=== PATIENT | male | born 1965 | race Caucasian/White ===

== ENCOUNTER 2020-08-03 12:09 | Outpatient (REF) | payer MEDICARE, MEDICAID, SELFPAY ==
[2020-08-03 14:00] LABS: Estimated Average Glucose 192 mg/dL; Hematocrit 43.3 % (42-52); Hemoglobin 15.9 g/dl (14.0-18.0); Hemoglobin A1c % 8.3 %; Mean Corpuscular HGB Conc 36.7 g/dl (31.0-36.0); Mean Corpuscular Hemoglobin 35.9 pg (27.0-33.0); Mean Corpuscular Volume 97.7 fL (80-98); Mean Platelet Volume 10.1 fL (9.4-12.4); Platelet Count 192 X10*3/uL (160-400); Red Blood Count 4.43 X10*6/uL (4.60-5.80); Red Cell Distribution Width 11.3 % (11.0-16.0); White Blood Count 5.7 X10*3/uL (4.8-10.8)
[2020-08-03 14:22] LABS: Alanine Aminotransferase 46 U/L (0-40); Albumin Level 4.3 g/dL (3.5-5.0); Alkaline Phosphatase 79 U/L (39-117); Anion Gap 16 (12-20); Aspartate Amino Transferase 71 U/L (5-37); Bilirubin Direct 0.5 mg/dL (0.0-0.5); Bilirubin Total 0.8 mg/dL (0.0-1.0); Blood Urea Nitrogen 16 mg/dL (9-16); Carbon Dioxide 29 mmol/L (22-29); Chloride 98 mmol/L (96-108); Cholesterol 203 mg/dL; Estimated Glomerular Filt Rate > 60; Glucose Fasting 271 mg/dL (60-99); Potassium 4.6 mmol/l (3.3-5.1); Sodium 138 mmol/L (135-145); Total Protein 7.8 g/dL (6.5-8.0); Triglycerides 88 mg/dL
[2020-08-03 14:27] LABS: Creatinine Urine 84.02 mg/dL; Microalbum/Creatinine Ratio Ur 80.9 ug/mg cr
[2020-08-03 14:48] LABS: Calcium 9.9 mg/dL (8.4-10.2); HDL Cholesterol 86 mg/dL; LDL Cholesterol Calculated 100 mg/dl
== END 2020-08-03 12:10 | disposition home or self-care (01) ==
LOC: HO.LAB 12:09
DX: E78.5 Hyperlipidemia, unspecified (principal); I10 Essential (primary) hypertension; E11.9 Type 2 diabetes mellitus without complications
CPT/HCPCS: 36415; 80053; 80061; 80076; 82043; 83036; 85027

== ENCOUNTER 2020-10-21 22:41 | Emergency (ER) | payer MEDICARE, MEDICAID, SELFPAY ==
[2020-10-21 22:51] VITALS: BP 167/48; PULSE 55; RESP 16; TEMP 37.2; O2SAT 99; BMI 27.4
--- NOTE | 2020-10-22 00:34 | ED_ITS ---
HPI - Extremity Problem General Chief complaint: Extremity Injury, Lower Stated complaint: foot pain Time Seen by Provider: 10/22/20 00:32 Source: patient Mode of arrival: ambulatory Limitations: no limitations History of Present Illness HPI Narrative: 55-year-old male insulin-dependent diabetes came in with complaint of nonhealing careless at the dorsum aspect of right foot at the base of the right big toe. Patient otherwise declined any known fever or chills, patient stated that he walks long distance that is why probably is not healing. Related Data Allergies Allergy/AdvReac Type Severity Reaction Status Date / Time aspirin [ASPIRIN] Allergy Unknown HIVES Verified 10/21/20 22:55 Review of Systems Review of Systems: All other systems are reviewed and are negative Constitutional: Reports as per HPI and Reports no additional constitutional complaints Eyes: Reports as per HPI and Reports no additional eye complaints Reports system reviewed and no additional complaints, except as documented Cardiovascular: Reports as per HPI and Reports no additional cardiovascular complaints Respiratory: Reports as per HPI and Reports no additional respiratory complaints Gastrointestinal: Reports as per HPI and Reports no additional gastrointestinal complaints Genitourinary: Reports no additional female genitourinary complaints Musculoskeletal: Reports no additional musculoskeletal complaints Skin/Breast: Reports system reviewed and no additional complaints, except as docu Psychiatric: Reports no additional psychiatric complaints Endocrine: Reports no additional endocrine complaints Hematologic/Lymphatic: Reports no additional hematologic/lymphatic complaints Allergic/Immunologic: Reports no additional allergic/immunologic complaints Reports system reviewed and no additional complaints, except as documented and Reports Abnormal speech present [facility] Past Medical History Medical History Diabetes HTN (hypertension) Social History Social History Smoking Status: Never smoker Use of substances other than those prescribed or required for medical reasons: No Advance Directives: No Advance Directives Information Provided: No Physical Exam Vital Signs: Vital Signs: Last Vital Signs Temp 98.9 F 10/21/20 22:51 Pulse 55 10/21/20 22:51 Resp 16 10/21/20 22:51 BP 167/48 H 10/21/20 22:51 Pulse Ox 99 10/21/20 22:51 Body Mass Index 27.4 Vital signs have been reviewed as normal and appeared to be correct. Blood pressure on the high side. Heart rate normal. Respiration rate normal. Temperature normal. Oxygen saturation normal. Appearance: Alert. Oriented X3. No acute distress. Head: Normal external exam. Normocephalic. Atraumatic. No [place] signs noted. No raccoon eyes noted Eyes: PERRLA. EOMI. Conjunctiva and sclera normal. Eyelids normal. ENT: EAC normal. TM's Normal. Pharynx normal. Uvula midline. Moist mucous me mbranes. No trismus noted. No drooling noted. No muffled voice noted. Neck: Normal inspection. Neck supple. FROM. No adenopathy. Thyroid Normal. No meningeal signs. No neck mass noted. CVS: Normal heart rate and rhythm. Heart sound normal. No murmurs noted. Pulses normal throughout. Respiratory: No respiratory distress. Painless inspiration. Breath sounds normal. No wheezes/rales/rhonchi noted. Chest nontender. No accessory muscle usage noted or decreased air movement noted. Abdomen: Soft and nontender. Bowel sounds normal in all 4 quadrants. No distention noted. No organomegaly noted. No visible injury noted. Back: No CVA tenderness. Full range of motion noted. Skin: Skin warm and dry. Normal skin color. Normal skin turgor. No rashes/lesions/lacerations noted. Right foot exam: 1 x 1 cm hard circular well-demarcated lesion on the dorsum of the base of left big toe, no redness or hotness, a PT/DP pulsation are intact, intact sensation to light touch. Neuro: Oriented X 3. No motor deficit. No sensory deficit. Reflexes normal. Course Course Course Narrative: Left foot callus. No sign of infection, neurovascular intact. Will refer to water service dispatcher. MDM - Extremity (Nontraumatic) Imaging Data Right foot x-ray: Radiologist's impression: There is no fracture or dislocation. Alignment is anatomic. Joint spaces are maintained. No osseous erosion. The soft tissues are unremarkable. Discharge Plan Discharge Clinical Impression: Callus of foot Patient Disposition: Home, Self-Care Additional Instructions: Use comfortable shoes with dry clean socks, then apply pressure for long time, celeste walk for long distances, and follow-up with a water service dispatcher as discussed. Referrals: Hunter Fregoso [Physician] - 2 days Lukasz Hernández DPM [Physician] - 2 days
--- NOTE | 2020-10-22 00:57 | XR_ITS ---
EXAMINATION: XR FOOT, RIGHT CLINICAL INFORMATION: Lesion at the dorsum of the right big toe COMPARISON: None TECHNIQUE: AP, lateral, and oblique views of the right foot. FINDINGS: There is no fracture or dislocation. Alignment is anatomic. Joint spaces are maintained. No osseous erosion. The soft tissues are unremarkable. XR/XR foot RT min 3V IMPRESSION: No acute osseous abnormality. No erosion.
== END 2020-10-22 01:55 | disposition home or self-care (01) ==
LOC: HO.ED 10-22 00:55
PROVIDERS: Emergency Provider Emergency Medicine
DX: L84 Corns and callosities (principal); M79.671 Pain in right foot
CPT/HCPCS: 73630; 99283; 99284

== ENCOUNTER 2021-03-23 11:29 | Outpatient (REF) | payer MEDICARE, MEDICAID, SELFPAY ==
[2021-03-23 12:26] LABS: MANUAL DIFF FLAG NO
[2021-03-23 12:30] LABS: Basophils Absolute Auto 0.1 X10*3/uL (0.0-0.2); Basophils Percent Auto 0.9 % (0-2); Eosinophils Absolute Auto 0.1 X10*3/uL (0.0-0.4); Eosinophils Percent Auto 0.9 % (0-4); Hematocrit 42.2 % (42-52); Hemoglobin 15.5 g/dl (14.0-18.0); Imm Gran Abs Auto 0.01 X10*3/uL (0.00-0.03); Imm Gran Pct Auto 0.2 % (0.0-0.4); Lymphocytes Absolute Auto 1.5 X10*3/uL (1.2-4.9); Lymphocytes Percent Auto 26.1 % (20-40); Mean Corpuscular HGB Conc 36.7 g/dl (31.0-36.0); Mean Corpuscular Volume 98.1 fL (80-98); Mean Platelet Volume 9.7 fL (9.4-12.4); Monocytes Absolute Auto 0.7 X10*3/uL (0.1-1.2); Monocytes Percent Auto 11.5 % (2-11); Neutrophils Absolute Auto 3.4 X10*3/uL (2.0-8.3); Neutrophils Percent Auto 60.4 % (45-73); Platelet Count 194 X10*3/uL (160-400); Red Cell Distribution Width 11.9 % (11.0-16.0); White Blood Count 5.7 X10*3/uL (4.8-10.8)
[2021-03-23 13:06] LABS: Thyroid Stimulating Hormone 0.88 uIU/mL (0.32-4.0)
[2021-03-23 13:30] LABS: Creatinine Urine 67.87 mg/dL
[2021-03-23 13:38] LABS: Alanine Aminotransferase 35 U/L (0-40); Albumin Level 4.3 g/dL (3.5-5.0); Alkaline Phosphatase 90 U/L (39-117); Anion Gap 15 (12-20); Aspartate Amino Transferase 65 U/L (5-37); Bilirubin Total 0.9 mg/dL (0.0-1.0); Blood Urea Nitrogen 15 mg/dL (9-16); Carbon Dioxide 31 mmol/L (22-29); Chloride 97 mmol/L (96-108); Cholesterol 172 mg/dL; Estimated Glomerular Filt Rate > 60; Glucose Fasting 221 mg/dL (60-99); HDL Cholesterol 69 mg/dL; LDL Cholesterol Calculated 82 mg/dl; Sodium 138 mmol/L (135-145); Total Protein 7.8 g/dL (6.5-8.0); Triglycerides 107 mg/dL
== END 2021-03-23 11:30 | disposition home or self-care (01) ==
LOC: HO.LAB 11:29
PROVIDERS: PCP Internal Medicine; Visit Provider Internal Medicine
DX: Z00.00 Encounter for general adult medical examination without abnormal findings (principal); E03.9 Hypothyroidism, unspecified; E11.9 Type 2 diabetes mellitus without complications
CPT/HCPCS: 36415; 80053; 80061; 82043; 84443; 85025

== ENCOUNTER 2021-04-01 21:44 | Emergency (ER) | payer MEDICARE, MEDICAID, SELFPAY ==
--- NOTE | ~2021-04-01 | XR_ITS ---
EXAMINATION: XR FOREARM, RIGHT CLINICAL INFORMATION: Injury. Pain. COMPARISON: None TECHNIQUE: AP and lateral views of the right forearm were obtained. FINDINGS: The bones and soft tissues are normal. No fracture. Imaged portions of the elbow and wrist are unremarkable. XR/XR forearm RT 2V IMPRESSION: Normal right forearm.
[2021-04-01 22:07] VITALS: BP 116/79; PULSE 62; RESP 18; TEMP 36.7; O2SAT 100; BMI 27.1
[2021-04-02] VITALS: BP 139/64; PULSE 56; RESP 16; O2SAT 100
--- NOTE | 2021-04-02 01:10 | ED.UPPEXIN ---
HPI - Extremity Injury (Upper) General Chief Complaint: Wound/Laceration Stated Complaint: arm pain, losing feeling in hand Time Seen by Provider: 04/02/21 00:17 Source: patient and family Mode of arrival: ambulatory Limitations: no limitations History of Present Illness HPI narrative: 55 y/o male presenting with right forearm pain after he slammed his arm into the metal handle of a door at his home a few hours ago. He had immediate pain on the dosum of his proximal forearm that is exacerbated by movement of his fingers and with palpation. He has no numbness or tingling. He has a few small abrasions on his forearm that he put band aids on. No active bleeding. He is not on anticoagulation. He has no other injuries. MD complaint: injury to: right and forearm Onset (ago): hour(s) Other Extremity Injury: right: forearm (proximal dorasal forearm) Other injuries: none Handedness: right Place: home Severity: moderate Severity scale (1-10): 8 Relieving factors: rest Exacerbating factors: movement of extremity Context: direct blow Associated symptoms: denies other symptoms Treatments prior to arrival: bandage Related Data Previous Rx's Medication Instructions Recorded atenolol 50 mg tablet 50 mg PO BID #180 tab 12/01/20 pravastatin 80 mg tablet 80 mg PO DAILY #90 tab 01/12/21 insulin syringe-needle U-100 1/2 0.5 ml MISCELLANEOUS BID #200 ea 01/13/21 mL 31 gauge x 15/64 blood sugar diagnostic #10 ea 02/28/21 insulin aspar prt-insulin aspart 30 unit SUBCUT BID #10 ml 03/29/21 100 unit/mL (70-30) subcutaneous soln Allergies Allergy/AdvReac Type Severity Reaction Status Date / Time aspirin [ASPIRIN] Allergy Unknown HIVES Verified 03/29/21 13:25 Review of Systems Review of Systems: Constitutional: No Fever, No Chills Gastrointestinal: No Nausea, No Vomiting Musculoskeletal: No joint pain, + Myalgia Skin: + Skin Lesions, No rash Neuro: No Weakness, No Numbness Psych: + Anxiety/Panic, No Depression Heme/Lymph: No Bruising, No Lymphadenopathy PMFSH Past Medical History Attestation statement: The following information was validated with the patient. Medical History Diabetes HTN (hypertension) Surgical History History of bunionectomy Family History Family History (Updated 03/29/21 @ 13:27 by Jennifer Hernandez CMA) Father No problems noted. Mother No problems noted. Social History Social History (Updated 03/29/21 @ 13:27 by Jennifer Hernandez CMA) Housing: House Alcohol intake: current Alcohol intake frequency: 3 or more drinks per day Alcohol type: beer, wine and hard liquor Patient Tobacco Use Status: Current everyday Tobacco user Cigarettes Per Day: 10 Smoked in Last 30 Days: Yes Use of substances other than those prescribed or required for medical reasons: No Advance Directives: No Advance Directives Information Provided: No service: No Current occupational status: disabled Physical Exam Vital Signs: Vital Signs: Last Vital Signs Temp 98.0 F 04/01/21 22:07 Pulse 56 04/02/21 00:00 Resp 16 04/02/21 00:00 BP 139/64 04/02/21 00:00 Pulse Ox 100 04/02/21 00:00 Body Mass Index 27.1 Appearance: Alert. Oriented X3. No acute distress. HEENT: normal inspection CVS: Normal heart rate and rhythm. Pulses normal. Respiratory: No respiratory distress. Skin: Skin warm and dry. Normal skin color. Normal skin turgor. No rashes. Extremities: dorsal aspect of right forearm with multiple small superficial abrasions, significant tenderness of proximal aspect of forearm soft tissue. no ecchymosis, no elbow tenderness, no wrist tenderness, pain with movement of all fingers. able to move all fingers but with pain. NV intact distally. Neuro: Oriented X 3. No motor deficit. No sensory deficit. Course Course Course Narrative: 55 y/o male presenting with right forearm pain after he had direct trauma from a door handle. NV intact. No gross deformity. Doubt ulna or radial fracture. XR pending to assess. Reevaluation(s) Reevaluation #1: XR is normal. His pain is most likely due to contusion of the flexor muscles of the forearm. Function is intact and no neuro deficits. No evidence of flexor tendon rupture. CLAUDIA wrap placed for compression and patient feels improved. He was counseled on diagnosis and management. He will f/u with his PCP this week. Stable for d/c. Critical Care Time Critical Care Time Critical Care Time: No Discharge Plan Discharge Clinical Impression: Contusion of forearm, right Qualifiers: Encounter type: initial encounter Qualified Code(s): S50.11XA - Contusion of right forearm, initial encounter Patient Disposition: Home, Self-Care Instructions: Contusion in Adults (ED) Additional Instructions: Your x-ray today was normal. Your pain is most likely due to a significant bruise deep inside the muscle. Recommend compression with CLAUDIA wrap for support. Elevate your arm when possible. Take Advil 600 mg every 6-8 hours as needed for pain, take with food. Rest your arm and hand. Follow up with your doctor this week. If you have continued pain follow up with Orthopedics in 1 week. Prescriptions: No Action atenolol 50 mg tablet 50 mg PO BID Qty: 180 RF: 8 pravastatin 80 mg tablet 80 mg PO DAILY Qty: 90 RF: 0 insulin syringe-needle U-100 [BD Veo Insulin Syringe UF] 1/2 mL 31 gauge x 15/64 syringe 0.5 ml miscellaneous BID Qty: 200 RF: 0 (DME) Accu-Chek Erika Plus test strp Strip See Rx Instructions .ROUTE .MEDSUPPLY Qty: 10 RF: 8 insulin asp prt-insulin aspart 100 unit/mL (70-30) solution 30 unit subcut BID Qty: 10 RF: 8 Referrals: Edvin Evans MD [Physician] - 1 week (forearm muscle injury) Discharge Date/Time: 04/02/21 01:23
== END 2021-04-02 01:23 | disposition home or self-care (01) ==
PROVIDERS: Emergency Provider Student in an Organized Health Care Education/Training Program; PCP Internal Medicine
DX: S50.11XA Contusion of right forearm, initial encounter (principal); E11.9 Type 2 diabetes mellitus without complications; I10 Essential (primary) hypertension; W22.09XA Striking against other stationary object, initial encounter; Y93.9 Activity, unspecified; Y92.009 Unspecified place in unspecified non-institutional (private) residence as the place of occurrence of the external cause; Y99.9 Unspecified external cause status; Z79.4 Long term (current) use of insulin; Z79.899 Other long term (current) drug therapy
CPT/HCPCS: 73090; 99283; 99284

== ENCOUNTER 2021-10-03 10:35 | Outpatient (REF) | payer MEDICARE, MEDICAID, SELFPAY ==
[2021-10-03 11:21] LABS: Cholesterol 185 mg/dL; HDL Cholesterol 68 mg/dL; LDL Cholesterol Calculated 98 mg/dl; Triglycerides 97 mg/dL
[2021-10-03 11:34] LABS: Estimated Average Glucose 206 mg/dL; Hemoglobin A1c % 8.8 %
== END 2021-10-03 10:36 | disposition home or self-care (01) ==
LOC: HO.LAB 10:35
PROVIDERS: Visit Provider Internal Medicine
DX: E11.9 Type 2 diabetes mellitus without complications (principal)
CPT/HCPCS: 36415; 80061; 83036

== ENCOUNTER → 2021-11-22 12:22 | Outpatient (BNVA) | payer MEDICARE, MEDICAID, SELFPAY | PROVIDERS: PCP Internal Medicine; Visit Provider Nurse Practitioner Gerontology | DX: E10.65 Type 1 diabetes mellitus with hyperglycemia (principal); E78.5 Hyperlipidemia, unspecified; I16.9 Hypertensive crisis, unspecified; I10 Essential (primary) hypertension; Z79.4 Long term (current) use of insulin | CPT/HCPCS: 82947; 99212 ==

== ENCOUNTER 2021-11-22 13:25 | Emergency (ER) | payer MEDICARE, MEDICAID, SELFPAY ==
--- NOTE | 2021-11-22 13:40 | ECG_ITS ---
Test Reason : high blood pressure Blood Pressure : / mmHG Vent. Rate : 054 BPM Atrial Rate : 054 BPM P-R Int : 124 ms QRS Dur : 088 ms QT Int : 454 ms P-R-T Axes : 061 004 067 degrees QTc Int : 430 ms Sinus bradycardia Otherwise normal ECG When compared with ECG of 07-DEC-2019 21:08, Non-specific change in ST segment in Anterior leads Referred By: Tari Street Electronically Signed By:Boris Munguia
[2021-11-22 13:42] VITALS: BP 204/95; PULSE 59; PULSE 69; RESP 18; TEMP 37.1; O2SAT 97; BMI 26.1
--- NOTE | 2021-11-22 13:44 | ED.GENADULT ---
HPI - General Adult General Chief complaint: Recheck/Abnormal Lab/Rx Stated complaint: HIGH BP 226/100 PER EMS Time Seen by Provider: 11/22/21 13:32 Source: patient Mode of arrival: ambulatory History of Present Illness HPI narrative: 56-year-old male with past medical history of diabetes, hyperlipidemia, HTN on Atenolol, sent to ED from [facility] office for asymptomatic hypertension noted to be 230/100 in the office. Patient admits to compliance with his atenolol takes 100 mg daily, denies recent change in medications. Denies headache, vision changes, CP/SOB, abdominal pain, nausea/vomiting, numbness, paresthesias, URI symptoms Onset (ago): hour(s) Related Data Home Medications Medication Instructions Recorded Confirmed diphenhydramine HCl 25 mg tablet 25 mg PO BEDTIME PRN 11/22/21 11/22/21 (Benadryl Allergy) omeprazole 20 mg capsule,delayed 20 mg PO DAILY 11/22/21 11/22/21 release Previous Rx's Medication Instructions Recorded atenolol 50 mg tablet 50 mg PO BID #180 tab 12/01/20 blood sugar diagnostic (Accu-Chek #10 ea 02/28/21 Erika Plus test strp) pravastatin 80 mg tablet 80 mg PO DAILY #90 tab 04/13/21 insulin syringe-needle U-100 1/2 0.5 ml MISCELLANEOUS BID #200 ea 04/19/21 mL 31 gauge x 15/64 (BD Veo Insulin Syringe Ultra-Fine) insulin aspar prt-insulin aspart 30 unit (0.3 mL) SUBCUT BID #10 ml 10/08/21 100 unit/mL (70-30) subcutaneous soln hydrochlorothiazide 25 mg tablet 25 mg PO DAILY #14 tab 11/22/21 Allergies Allergy/AdvReac Type Severity Reaction Status Date / Time aspirin [ASPIRIN] Allergy Unknown HIVES Verified 11/22/21 12:41 Review of Systems Review of Systems: Constitutional: No Fever, No Chills, No Fatigue, No Malaise ENT/Mouth: No Ear Pain, No Nasal Congestion, No sore throat, No Rhinorrhea, No Swallowing Difficulty Eyes: No Eye Pain, No Swelling, No Discharge, No Vision Changes Cardiovascular: No Chest Pain, No SOB, No Dyspnea on Exertion, No Edema, No Palpitations Respiratory: No Cough, No Sputum, No Dyspnea Gastrointestinal: No Nausea, No Vomiting, No Diarrhea, No Abdominal pain Genitourinary: No Dysuria, No Urinary Frequency, No Hematuria, No Flank Pain Musculoskeletal: No joint pain, No Myalgias, No Joint Swelling Skin: No Skin Lesions, No rash Neuro: No Weakness, No Numbness, No Paresthesias, No Loss of Consciousness, No Dizziness, No Headache Yes all other systems are reviewed and are negative [facility] Past Medical History Attestation statement: The following information was validated with the patient. Medical History Diabetes HTN (hypertension) Hyperlipidemia Surgical History History of bunionectomy Family History Family History Father No problems noted. Mother No problems noted. Social History Social History Housing: House Alcohol intake: current Alcohol intake frequency: 3 or more drinks per day Alcohol type: beer, wine and hard liquor Patient Tobacco Use Status: Current everyday Tobacco user Cigarettes Per Day: 10 Second Hand Smoke Exposure: No Advance Directives: No Advance Directives Information Provided: No service: No Current occupational status: disabled Cognitive needs: No Hearing needs: No Vision needs: No Physical Exam Vital Signs: Vital Signs: Last Vital Signs Temp 98.7 F 11/22/21 13:42 Pulse 54 11/22/21 15:21 Resp 16 11/22/21 15:21 BP 181/82 H 11/22/21 15:21 Pulse Ox 100 11/22/21 15:21 BMI result Body Mass Index 26.1 Const: General: cooperative, healthy appearing, no acute distress, well developed, alert and awake Orientation/consciousness: patient oriented x3 Limitations: no limitations HENMT: Head: Yes normal to inspection and Yes atraumatic Ears: hearing grossly normal bilaterally General nose exam: Normal external nose present Face and sinus: Yes normal facial exam Eyes: General: appearance normal, both eyes and all related structures EOM: EOMs intact bilaterally Neck: Neck: Yes normal visual inspection and Yes no meningeal signs Resp: Effort & Inspection: normal respiratory effort and no respiratory distress Auscultation: clear to auscultation bilaterally, no rales, no rhonchi and no wheezes Cardio: Rate: regular rate Heart sounds: S1 normal heart sound present and S2 normal heart sound present GI: Inspection: Yes normal to inspection Palpation (GI): Soft to palpation, nontender, no guarding and not rigid Skin: Rashes: no rashes Wounds: no wounds Neuro: General: patient oriented x3, tone normal, moves all extremities and no meningeal signs Gait exam (Neuro): Normal gait present Extrem: General: Yes normal to inspection Course Course Course Narrative: 1500--no leukocytosis. H&H stable. Labs otherwise unremarkable. Troponin negative. -1507--repeat BP 180/80 after 25 mg of HCTZ. -1530--repeat BP 181/82. Plan for DC home. Will initiate 25 mg of HCTZ in addition to patient's atenolol. Discussed importance of needing close follow-up with PCP and close BP monitoring. Patient verbalized understanding and feel safe for discharge home Medical Decision Making MDM Narrative Medical decision making narrative: 56-year-old male with past medical history of diabetes, hyperlipidemia, HTN on Atenolol, sent to ED from [facility] office for asymptomatic hypertension noted to be 230/100 in the office. On exam hypertensive, NAD, asymptomatic, no focal neuro deficits. Concern for asymptomatic hypertension vs hypertensive urgency. Low concern for hypertensive emergency or JUVENCIO or ICH Plan: EKG, labs, PO HCTZ, re-evaluate Medical Records Medical records reviewed: Yes I reviewed the patient's medical records. Lab Data Lab results reviewed: Yes I reviewed the patient's lab results. Result diagrams: 11/22/21 14:28 11/22/21 14:28 Labs: Lab Results 11/22/21 11/22/21 11/22/21 Range/Units 14:28 14:28 14:28 WBC 6.6 (4.8-10.8) X10*3/uL RBC 4.14 L (4.60-5.80) X10*6/uL Hgb 14.9 (14.0-18.0) g/dl Hct 40.0 L (42.0-52.0) % MCV 96.6 (80.0-98.0) fL MCH 36.0 H (27.0-33.0) pg MCHC 37.3 H (31.0-36.0) g/dl RDW 11.9 (11.0-16.0) % Plt Count 187 (160-400) X10*3/uL MPV 9.3 L (9.4-12.4) fL Immature Gran % (Auto) 0.2 (0.0-0.4) % Neut % (Auto) 69.1 (45-73) % Lymph % (Auto) 19.0 L (20-40) % [place] % (Auto) 10.0 (2-11) % Eos % (Auto) 0.8 (0-4) % Baso % (Auto) 0.9 (0-2) % Lymph # (Auto) 1.3 (1.2-4.9) X10*3/uL [place] # (Auto) 0.7 (0.1-1.2) X10*3/uL Eos # (Auto) 0.1 (0.0-0.4) X10*3/uL Baso # (Auto) 0.1 (0.0-0.2) X10*3/uL Abs Immat Gran (auto) 0.01 (0.00-0.03) X10*3/uL Absolute Neuts (auto) 4.5 (2.0-8.3) x10*3/uL Absolute Nucleated RBC 0.000 (0.0-0.012) X10*3/uL Nucleated RBC % (auto) 0.0 (0.0-0.2) /100WBC Sodium 138 (135-145) mmol/L Potassium 4.3 (3.3-5.1) mmol/L Chloride 99 (96-108) mmol/L Carbon Dioxide 25 (22-29) mmol/L Anion Gap 18 (12-20) BUN 11 (9-16) mg/dL Creatinine 0.92 (0.5-1.4) mg/dL Estim Creat Clear Calc 78.9 Estimated GFR > 60 Random Glucose 77 (60-115) mg/dL Calcium 10.2 (8.4-10.2) mg/dL Troponin I High Sens 4.9 (<3.5-35.0) ng/L Discharge Plan Discharge Clinical Impression: HTN (hypertension) Patient Disposition: Home, Self-Care Instructions: Hypertension (ED) Additional Instructions: Your blood pressure is elevated today in the emergency department. Continue taking prescribed atenolol. In addition start taking 25 mg of hydrochlorothiazide YOU NEED TO MONITOR YOUR BLOOD PRESSURE CLOSELY. TAKE DAILY FOR THE NEXT 3 DAYS MINIMUM. if you develop lightheadedness/dizziness, weakness, pass out return to the ED immediately CALL YOUR PCP FOR FOLLOW-UP your Blood work was reassuring. if you develops headache, chest pain, shortness of breath, numbness/tingling or weakness please return to the ED immediately Prescriptions: New hydrochlorothiazide 25 mg tablet 25 mg PO DAILY Qty: 14 0RF No Action atenolol 50 mg tablet 50 mg PO BID Qty: 180 8RF (DME) Accu-Chek Erika Plus test strp Strip See Rx Instructions .ROUTE .MEDSUPPLY Qty: 10 8RF Rx Instructions: To check blood sugars twice a day pravastatin 80 mg tablet 80 mg PO DAILY Qty: 90 8RF insulin syringe-needle U-100 [BD Veo Insulin Syringe UF] 1/2 mL 31 gauge x 15/64 syringe 0.5 ml miscellaneous BID Qty: 200 8RF insulin asp prt-insulin aspart 100 unit/mL (70-30) solution 30 unit subcut BID Qty: 10 8RF diphenhydramine HCl [Benadryl Allergy] 25 mg tablet 25 mg PO BEDTIME PRN0RF omeprazole 20 mg capsule,delayed release(DR/EC) 20 mg PO DAILY 0RF Referrals: Edgardo Mcleod MD [Primary Care Provider] - 2 days
[2021-11-22 14:32] LABS: MANUAL DIFF FLAG NO
[2021-11-22] MEDS: hydroCHLOROthiazide 25 MG TABLET PO (14:32)
[2021-11-22 14:35] LABS: Basophils Absolute Auto 0.1 X10*3/uL (0.0-0.2); Basophils Percent Auto 0.9 % (0-2); Eosinophils Absolute Auto 0.1 X10*3/uL (0.0-0.4); Eosinophils Percent Auto 0.8 % (0-4); Hemoglobin 14.9 g/dl (14.0-18.0); Imm Gran Abs Auto 0.01 X10*3/uL (0.00-0.03); Imm Gran Pct Auto 0.2 % (0.0-0.4); Lymphocytes Absolute Auto 1.3 X10*3/uL (1.2-4.9); Mean Corpuscular HGB Conc 37.3 g/dl (31.0-36.0); Mean Corpuscular Volume 96.6 fL (80.0-98.0); Mean Platelet Volume 9.3 fL (9.4-12.4); Monocytes Absolute Auto 0.7 X10*3/uL (0.1-1.2); Neutrophils Absolute Auto 4.5 x10*3/uL (2.0-8.3); Neutrophils Percent Auto 69.1 % (45-73); Platelet Count 187 X10*3/uL (160-400); Red Blood Count 4.14 X10*6/uL (4.60-5.80); Red Cell Distribution Width 11.9 % (11.0-16.0); White Blood Count 6.6 X10*3/uL (4.8-10.8)
[2021-11-22 14:49] LABS: Anion Gap 18 (12-20); Blood Urea Nitrogen 11 mg/dL (9-16); Calcium 10.2 mg/dL (8.4-10.2); Carbon Dioxide 25 mmol/L (22-29); Chloride 99 mmol/L (96-108); Creatinine Clr Calc Pharmacy 78.9; Estimated Glomerular Filt Rate > 60; Glucose Random 77 mg/dL (60-115); Potassium 4.3 mmol/L (3.3-5.1); Sodium 138 mmol/L (135-145)
[2021-11-22 14:58] LABS: Troponin-I High Sensitivity 4.9 ng/L (<3.5-35.0)
[2021-11-22 15:21] VITALS: BP 181/82; PULSE 54; RESP 16; O2SAT 100
== END 2021-11-22 15:54 | disposition home or self-care (01) ==
PROVIDERS: Physician Assistant; Emergency Provider Emergency Medicine Emergency Medical Services; PCP Internal Medicine
DX: I10 Essential (primary) hypertension (principal); E11.9 Type 2 diabetes mellitus without complications; E78.5 Hyperlipidemia, unspecified; F17.210 Nicotine dependence, cigarettes, uncomplicated; Z79.4 Long term (current) use of insulin; Z79.899 Other long term (current) drug therapy; Z71.6 Tobacco abuse counseling
CPT/HCPCS: 36415; 80048; 84484; 85025; 93005; 99283; 99284

== ENCOUNTER 2021-12-10 21:15 | Emergency (ER) | payer MEDICARE, MEDICAID, SELFPAY ==
--- NOTE | ~2021-12-10 | XR_ITS ---
EXAMINATION: XR FINGER, RIGHT CLINICAL INFORMATION: Numbness and pain COMPARISON: None TECHNIQUE: Three views of the right index finger. FINDINGS: The bones and soft tissues are normal. No fracture. Alignment is anatomic. Joint spaces are maintained. XR/XR finger RT min 2V IMPRESSION: Normal finger radiographs.
[2021-12-10 21:30] VITALS: BP 141/105; PULSE 56; RESP 16; TEMP 36.4; O2SAT 100; BMI 26.1
[2021-12-10 21:58] LABS: MANUAL DIFF FLAG NO
[2021-12-10 22:00] LABS: Basophils Percent Auto 0.7 % (0-2); Eosinophils Absolute Auto 0.1 X10*3/uL (0.0-0.4); Eosinophils Percent Auto 1.2 % (0-4); Hematocrit 36.7 % (42.0-52.0); Hemoglobin 13.4 g/dl (14.0-18.0); Imm Gran Abs Auto 0.01 X10*3/uL (0.00-0.03); Imm Gran Pct Auto 0.2 % (0.0-0.4); Lymphocytes Absolute Auto 1.9 X10*3/uL (1.2-4.9); Lymphocytes Percent Auto 32.3 % (20-40); Mean Corpuscular HGB Conc 36.5 g/dl (31.0-36.0); Mean Corpuscular Hemoglobin 35.9 pg (27.0-33.0); Mean Corpuscular Volume 98.4 fL (80.0-98.0); Mean Platelet Volume 9.8 fL (9.4-12.4); Monocytes Absolute Auto 0.6 X10*3/uL (0.1-1.2); Monocytes Percent Auto 10.3 % (2-11); Neutrophils Absolute Auto 3.3 x10*3/uL (2.0-8.3); Neutrophils Percent Auto 55.3 % (45-73); Platelet Count 184 X10*3/uL (160-400); Red Blood Count 3.73 X10*6/uL (4.60-5.80); Red Cell Distribution Width 12.1 % (11.0-16.0); White Blood Count 5.9 X10*3/uL (4.8-10.8)
[2021-12-10 22:12] LABS: Anion Gap 15 (12-20); Blood Urea Nitrogen 10 mg/dL (9-16); Calcium 9.8 mg/dL (8.4-10.2); Carbon Dioxide 24 mmol/L (22-29); Chloride 96 mmol/L (96-108); Creatinine Clr Calc Pharmacy 67.9; Estimated Glomerular Filt Rate > 60; Glucose Random 280 mg/dL (60-115); Potassium 4.3 mmol/L (3.3-5.1); Sodium 131 mmol/L (135-145)
[2021-12-11 01:20] LABS: Glucose, Whole Blood 290 mg/dL (60-115)
== END 2021-12-10 23:43 | disposition left against medical advice (07) ==
PROVIDERS: Emergency Provider Emergency Medicine; PCP Internal Medicine
DX: M79.644 Pain in right finger(s) (principal); E10.9 Type 1 diabetes mellitus without complications
CPT/HCPCS: 36415; 73140; 80048; 82947; 85025; 99283

== ENCOUNTER 2021-12-17 22:34 | Emergency (ER) | payer MEDICARE, MEDICAID, SELFPAY ==
[2021-12-17 22:47] VITALS: BP 134/87; BP 155/80; PULSE 62; PULSE 68; RESP 18; TEMP 36.6; O2SAT 100; O2SAT 98; BMI 26.1
[2021-12-17 23:06] LABS: MANUAL DIFF FLAG NO
[2021-12-17 23:07] LABS: Basophils Percent Auto 0.7 % (0-2); Eosinophils Absolute Auto 0.1 X10*3/uL (0.0-0.4); Eosinophils Percent Auto 1.9 % (0-4); Hematocrit 35.5 % (42.0-52.0); Imm Gran Abs Auto 0.01 X10*3/uL (0.00-0.03); Imm Gran Pct Auto 0.2 % (0.0-0.4); Lymphocytes Absolute Auto 1.2 X10*3/uL (1.2-4.9); Lymphocytes Percent Auto 22.6 % (20-40); Mean Corpuscular HGB Conc 36.6 g/dl (31.0-36.0); Mean Corpuscular Hemoglobin 35.5 pg (27.0-33.0); Mean Platelet Volume 9.2 fL (9.4-12.4); Monocytes Absolute Auto 0.5 X10*3/uL (0.1-1.2); Neutrophils Absolute Auto 3.5 x10*3/uL (2.0-8.3); Neutrophils Percent Auto 65.6 % (45-73); Platelet Count 144 X10*3/uL (160-400); Red Blood Count 3.66 X10*6/uL (4.60-5.80); Red Cell Distribution Width 12.2 % (11.0-16.0); White Blood Count 5.4 X10*3/uL (4.8-10.8)
[2021-12-17 23:21] LABS: Anion Gap 14 (12-20); Blood Urea Nitrogen 13 mg/dL (9-16); Calcium 9.4 mg/dL (8.4-10.2); Carbon Dioxide 27 mmol/L (22-29); Chloride 94 mmol/L (96-108); Creatinine Clr Calc Pharmacy 68.5; Estimated Glomerular Filt Rate > 60; Glucose Random 217 mg/dL (60-115); Potassium 4.2 mmol/L (3.3-5.1); Sodium 131 mmol/L (135-145)
[2021-12-17 23:22] LABS: Lactic Acid 2.9 mmol/L (0.5-2.0)
[2021-12-18 01:04] LABS: Reflex Lactate? Lactic Acid Added
== END 2021-12-18 00:54 | disposition left against medical advice (07) ==
PROVIDERS: Emergency Provider Emergency Medicine
DX: M79.644 Pain in right finger(s) (principal); L03.011 Cellulitis of right finger; E11.9 Type 2 diabetes mellitus without complications
CPT/HCPCS: 36415; 80048; 83605; 85025; 87040; 99282; 99283

== ENCOUNTER 2022-01-27 19:25 | Emergency (ER) | payer MEDICARE, MEDICAID, SELFPAY | END 2022-01-27 20:55 | disposition left against medical advice (07) | PROVIDERS: Emergency Provider Emergency Medicine; PCP Internal Medicine | DX: R68.89 Other general symptoms and signs (principal) ==

== ENCOUNTER 2022-06-28 04:43 | Emergency (ER) | payer MEDICARE, MEDICAID, SELFPAY ==
[2022-06-28 05:07] VITALS: BP 151/78; PULSE 79; RESP 18; TEMP 37.2; O2SAT 99; BMI 25.8
[2022-06-28 05:28] VITALS: BP 150/70; PULSE 75; RESP 17; TEMP 37.1; O2SAT 100
--- NOTE | 2022-06-28 05:35 | ED_ITS ---
HPI - General Adult General Chief complaint: General Medical Stated complaint: broken tooth? swollen face Time Seen by Provider: 06/28/22 05:31 History of Present Illness HPI narrative: patient is a 56-year-old male presents today with having pain and swelling to the left face. Patient claims he was chewing broke a 2 for about a week ago now have increasing swelling to the face. The swelling happen mostly tonight. Patient denies any systemic complaints. No change in voice. No nausea no vomiting. No difficulty swallowing. Patient from home. Related Data Home Medications Medication Instructions Recorded Confirmed diphenhydramine HCl 25 mg tablet 25 mg PO BEDTIME PRN 11/22/21 04/22/22 (Benadryl Allergy) omeprazole 20 mg capsule,delayed 20 mg PO DAILY 11/22/21 04/22/22 release Previous Rx's Medication Instructions Recorded hydrochlorothiazide 25 mg tablet 25 mg PO DAILY #14 tabs 11/22/21 atenolol 50 mg tablet 50 mg PO BID #180 tabs 02/12/22 blood sugar diagnostic (Accu-Chek #10 ea 03/05/22 Erika Plus test strips) insulin aspar prt-insulin aspart 30 unit (0.3 mL) subcut BID #10 mL 04/05/22 100 unit/mL (70-30) subcutaneous soln insulin syringe-needle U-100 1/2 0.5 ml miscellaneous BID #200 ea 04/19/22 mL 31 gauge x 15/64 (BD Veo Insulin Syringe Ultra-Fine) pravastatin 80 mg tablet 80 mg PO DAILY #90 tabs 04/23/22 oxycodone 5 mg tablet 5 mg PO Q8H PRN pain #7 tabs 06/28/22 penicillin V potassium 500 mg 500 mg PO TID #20 tabs 06/28/22 tablet Allergies Allergy/AdvReac Type Severity Reaction Status Date / Time aspirin [ASPIRIN] Allergy Unknown HIVES Verified 06/28/22 05:07 Review of Systems Review of Systems: No chest pain or shortness breath no nausea no vomiting Yes all other systems are reviewed and are negative [facility] Past Medical History Attestation statement: The following information was validated with the patient. Medical History Diabetes HTN (hypertension) Hyperlipidemia Surgical History History of bunionectomy Family History Family History Father No problems noted. Mother No problems noted. Social History Social History Housing: House Alcohol intake: current Alcohol intake frequency: 3 or more drinks per day Alcohol type: beer, wine and hard liquor Patient Tobacco Use Status: Current everyday Tobacco user Tobacco use type: Cigarette Cigarettes Per Day: 10 e-Cigarette/Vaping Use: Never Used Second Hand Smoke Exposure: No Advance Directives: No Advance Directives Information Provided: No service: No Current occupational status: disabled Cognitive needs: No Hearing needs: No Vision needs: No Physical Exam ED Vital Signs: Vital Signs - 24 hr 06/28/22 05:07 06/28/22 05:28 Temperature 98.9 F 98.8 F Pulse Rate 79 75 Respiratory Rate 18 17 Blood Pressure 151/78 H 150/70 H Pulse Oximetry 99 100 Oxygen Delivery Method Room Air Room Air BMI result Body Mass Index 25.8 Appearance: Alert. Oriented X3. No acute distress. Eyes: Pupils equal, round and reactive to light. ENT: Pharynx normal. examination of the left face showed multiple tooth decay the entire upper and lower molars on the left side. There is no gross fluct uance palpable. Clearly there was swelling. Posterior pharynx was normal. Neck: Normal inspection. Neck supple. No lymph nodes noted. No crepitus CVS: Normal heart rate and rhythm. Pulses normal. Normal S1 and S2 Respiratory: No respiratory distress. Breath sounds normal. No Wheezing. No rales Abdomen: Soft and nontender. No rigidity. No distention. good BS x4 Skin: Skin warm and dry. Normal skin color. Normal skin turgor. Extremities: No lower extremity edema. Neurovascular intact to all extremities. No Lacerations. No Rash Neuro: Oriented X 3. No motor deficit. No sensory deficit. Moving all extermities. No slurred speech Medical Decision Making MDM Narrative Medical decision making narrative: Significant tooth infection will start patient on antibiotics pain medication patient wore needs to follow up closely with dentist in a.m.. In stable condition. Patient's sugar elevated. He will monitor it at home. Actually give himself 25 units of 70 30 insulin in the ED. Patient is in stable condition. Told he must follow-up with a dentist on an outpatient basis immediately Discharge Plan Discharge Clinical Impression: Infected tooth Patient Disposition: Home, Self-Care Instructions: Dental Abscess (ED) Prescriptions: New penicillin V potassium 500 mg tablet 500 mg PO TID Qty: 20 0RF oxycodone 5 mg tablet 5 mg PO Q8H PRN (Reason: pain) Qty: 7 0RF Rx Instructions: Partial Fill upon patient request. No Action atenolol 50 mg tablet 50 mg PO BID Qty: 180 8RF (DME) Accu-Chek Erika Plus test strp Strip See Rx Instructions .ROUTE .MEDSUPPLY Qty: 10 8RF Rx Instructions: To check blood sugars twice a day insulin asp prt-insulin aspart 100 unit/mL (70-30) solution 30 unit subcut BID Qty: 10 8RF insulin syringe-needle U-100 [BD Veo Insulin Syringe UF] 1/2 mL 31 gauge x 15/64 syringe 0.5 ml miscellaneous BID Qty: 200 8RF pravastatin 80 mg tablet 80 mg PO DAILY Qty: 90 8RF hydrochlorothiazide 25 mg tablet 25 mg PO DAILY Qty: 14 0RF diphenhydramine HCl [Benadryl Allergy] 25 mg tablet 25 mg PO BEDTIME PRN omeprazole 20 mg capsule,delayed release(DR/EC) 20 mg PO DAILY Referrals: Physician,Unknown J [Physician] - ( Please follow-up with your dentist today)
[2022-06-28] MEDS: HYDROcodone Bit/Acetam 5/325 TABLET 1 TAB PO (05:50)
[2022-06-28] MEDS: Penicillin V Potassium 250 MG TABLET 500 MG PO (05:51)
[2022-06-28 06:15] LABS: Glucose, Whole Blood 363 mg/dL (60-115)
== END 2022-06-28 06:12 | disposition home or self-care (01) ==
PROVIDERS: Emergency Provider Emergency Medicine Emergency Medical Services; PCP Internal Medicine
DX: K04.7 Periapical abscess without sinus (principal); K02.9 Dental caries, unspecified; I10 Essential (primary) hypertension; E11.9 Type 2 diabetes mellitus without complications; E78.5 Hyperlipidemia, unspecified; Z79.4 Long term (current) use of insulin; Z79.02 Long term (current) use of antithrombotics/antiplatelets; Z79.899 Other long term (current) drug therapy
CPT/HCPCS: 82947; 99283

== ENCOUNTER → 2022-08-27 10:00 | Outpatient (BNVA) | payer OTHER, SELFPAY | PROVIDERS: PCP Internal Medicine; Visit Provider Internal Medicine Endocrinology, Diabetes & Metabolism | DX: E10.65 Type 1 diabetes mellitus with hyperglycemia (principal); I10 Essential (primary) hypertension; E78.5 Hyperlipidemia, unspecified; Z79.4 Long term (current) use of insulin | CPT/HCPCS: 82947 ==

== ENCOUNTER 2022-09-24 16:55 | Emergency (ER) | payer OTHER, SELFPAY | END 2022-09-24 19:34 | disposition left against medical advice (07) | PROVIDERS: Emergency Provider Emergency Medicine; PCP Internal Medicine | DX: H57.13 Ocular pain, bilateral (principal) ==

== ENCOUNTER 2022-12-04 20:23 | Emergency (ER) | payer OTHER, SELFPAY ==
[2022-12-04 20:30] VITALS: BP 190/90; PULSE 66; O2SAT 99
== END 2022-12-04 22:04 | disposition left against medical advice (07) ==
LOC: HO.ED 22:01
PROVIDERS: Emergency Provider Emergency Medicine
DX: M54.50 Low back pain, unspecified (principal)

== ENCOUNTER 2023-07-04 19:58 | Emergency (ER) | payer OTHER, SELFPAY ==
[2023-07-04 20:02] VITALS: BP 160/98; PULSE 64; O2SAT 97
[2023-07-04 20:47] VITALS: BP 148/75; PULSE 57; RESP 18; TEMP 36.4; O2SAT 100; BMI 30.4
--- NOTE | 2023-07-04 20:49 | ED_ITS ---
HPI - General Adult General Chief complaint: Extremity Injury, Lower Stated complaint: BiLat leg lac from fall 2 days ago. Related Data Home Medications ?Medication ?Instructions ?Recorded ?Confirmed diphenhydramine HCl 25 mg tablet 25 mg PO BEDTIME PRN 11/22/21 11/11/23 (Benadryl Allergy) omeprazole 20 mg capsule,delayed 20 mg PO DAILY 11/22/21 11/11/23 release Previous Rx's ?Medication ?Instructions ?Recorded hydrochlorothiazide 25 mg tablet 25 mg PO DAILY #14 tabs 11/22/21 erythromycin 5 mg/gram (0.5 %) eye 0.5 inch ophthalmic (eye) TID #3.5 01/23/23 ointment grams atenolol 50 mg tablet 50 mg PO BID #180 tabs 04/16/23 insulin aspar prt-insulin aspart 30 unit (0.3 mL) subcut BID #10 mL 05/01/23 100 unit/mL (70-30) subcutaneous soln pravastatin 80 mg tablet 80 mg PO DAILY #90 tabs 06/20/23 insulin syringe-needle U-100 1/2 0.5 ml miscellaneous BID #200 ea 06/22/23 mL 31 gauge x 15/64 (BD Veo Insulin Syringe Ultra-Fine) blood sugar diagnostic (Accu-Chek #10 ea 11/22/23 Erika Plus test strips) insulin lispro protamine-lispro 35 unit (0.35 mL) subcut BID #10 mL 12/16/23 100 unit/mL (75-25) subcutaneous susp (Humalog Mix 75-25(U-100)Insuln) Allergies Allergy/AdvReac Type Severity Reaction Status Date / Time aspirin [ASPIRIN] Allergy Unknown HIVES Verified 11/11/23 10:39 [facility] Past Medical History Medical History Hyperlipidemia Diabetes HTN (hypertension) Surgical History History of bunionectomy Family History Family History Father No problems noted. Mother No problems noted. Social History Social History Housing: House Alcohol intake: current Alcohol intake frequency: 3 or more drinks per day Alcohol type: other Patient Tobacco Use Status: Current everyday Tobacco user Tobacco use type: Cigarette Cigarettes Per Day: 10 e-Cigarette/Vaping Use: Never Used Second Hand Smoke Exposure: Yes service: No Current occupational status: disabled Cognitive needs: No Hearing needs: No Vision needs: No Physical Exam ED Vital Signs: BMI result Body Mass Index 30.4 Course Course Course Narrative: This is an RME: Additional HPI, ROS, PE not included below will be deferred to primary provider. 57 y o male PMH DM, HTN, HLD presenting for evaluation of abrasions to the b/l medial shins which happened 2 days ago. No thinners. States has been applying neosporin but has had increased redness, no purulent discharge, no bleeding. PCP appointment on Friday Plan [facility] Discharge Plan Discharge Clinical Impression: Eloped from emergency department Patient Disposition: Left W/O Completing Treatment Prescriptions: No Action atenolol 50 mg tablet 50 mg PO BID Qty: 180 8RF insulin asp prt-insulin aspart 100 unit/mL (70-30) solution 30 unit subcut BID Qty: 10 8RF pravastatin 80 mg tablet 80 mg PO DAILY Qty: 90 8RF insulin syringe-needle U-100 [BD Veo Insulin Syringe UF] 1/2 mL 31 gauge x 15/64 syringe 0.5 ml miscellaneous BID Qty: 200 8RF (DME) Accu-Chek Erika Plus test strp Strip See Rx Instructions .ROUTE .MEDSUPPLY Qty: 10 8RF Rx Instructions: To check blood sugars twice a day Humalog Mix 75-25(U-100)Insuln 100 unit/mL (75-25) suspension 35 unit subcut BID Qty: 10 8RF hydrochlorothiazide 25 mg tablet 25 mg PO DAILY Qty: 14 0RF erythromycin 5 mg/gram (0.5 %) ointment 0.5 inch ophthalmic (eye) TID Qty: 3.5 0RF diphenhydramine HCl [Benadryl Allergy] 25 mg tablet 25 mg PO BEDTIME PRN omeprazole 20 mg capsule,delayed release(DR/EC) 20 mg PO DAILY Discharge Date/Time: 07/04/23 23:03
== END 2023-07-04 23:03 | disposition left against medical advice (07) ==
PROVIDERS: Emergency Provider Emergency Medicine
DX: S81.812A Laceration without foreign body, left lower leg, initial encounter (principal); S81.811A Laceration without foreign body, right lower leg, initial encounter; F17.210 Nicotine dependence, cigarettes, uncomplicated; X58.XXXA Exposure to other specified factors, initial encounter; Y93.9 Activity, unspecified; Y92.9 Unspecified place or not applicable; Y99.9 Unspecified external cause status; Z71.6 Tobacco abuse counseling; Z79.899 Other long term (current) drug therapy
CPT/HCPCS: 99281

== ENCOUNTER 2023-07-08 10:44 | Outpatient (AMB) | payer OTHER, SELFPAY ==
[2023-07-08 10:46] VITALS: BP 158/84; PULSE 59; O2SAT 99; BMI 29.7
--- NOTE | 2023-07-08 10:46 | A.OFFPC_ITS ---
Vital Signs 07/08/23 10:46 Height 5 ft 4 in Weight 173 lb BMI 29.7 BP 158/84 H Blood Pressure Location Lt brachial Position Sitting Pulse 59 Pulse Source Pulse Oximeter Pulse Oximetry (%) 99 Oxygen Delivery Method Room Air Intake Visit Reasons: 4m follow up Rectifying Attendant: Not Required per policy Accompanied by: Self / Same As Patient Allergies aspirin [ASPIRIN] Allergy (Unknown, Verified 07/08/23 10:46) HIVES Medication List - Last Reconciled 07/08/23 by Edgardo Mcleod MD atenolol 50 mg PO BID blood sugar diagnostic (Accu-Chek Erika Plus test strips) To check blood sugars twice a day diphenhydramine HCl (Benadryl Allergy) 25 mg PO BEDTIME PRN erythromycin 0.5 inches ophthalmic (eye) TID hydrochlorothiazide 25 mg PO DAILY insulin asp prt-insulin aspart 100 unit/mL (70-30) 30 units (0.3 mL) subcut BID insulin lispro protamin-lispro 100 unit/mL (75-25) (Humalog Mix 75-25(U-100)Insuln) 35 units (0.35 mL) subcut BID insulin syringe-needle U-100 (BD Veo Insulin Syringe Ultra-Fine) 0.5 mL miscellaneous BID omeprazole 20 mg PO DAILY pravastatin 80 mg PO DAILY Tobacco use date assessed: 02/19/23 Dental Screening Dental Screen Date: 07/08/23 Did you have a dental visit in the last 12 months?: No Did you have a dental problem in the last 6 months where you did not have access to dental care?: No Was dental information given to patient?: Patient has dentist HPI 4m follow up HPI Details HTN [id number] and DM on insulin; stable and A1C improving [facility] Medical History Hyperlipidemia Diabetes HTN (hypertension) Surgical History History of bunionectomy Family History Father No problems noted. Mother No problems noted. Social History Housing: House Alcohol intake: current Alcohol intake frequency: 3 or more drinks per day Alcohol type: beer, wine and hard liquor Patient Tobacco Use Status: Current everyday Tobacco user Tobacco use type: Cigarette Cigarettes Per Day: 10 e-Cigarette/Vaping Use: Never Used Second Hand Smoke Exposure: Yes service: No Current occupational status: disabled Cognitive needs: No Hearing needs: No Vision needs: No Questionnaire PHQ-9 Over the last 2 weeks, how often have you been bothered by any of the following problems? 1. Little interest or pleasure in doing things: not at all 2. Feeling down, depressed, or hopeless: not at all 3. Trouble falling or staying asleep, or sleeping too much: not at all 4. Feeling tired or having little energy: not at all 5. Poor appetite or overeating: not at all 6. Feeling bad about yourself - or that you are a failure or have let yourself or your family down: not at all 7. Trouble concentrating on things, such as reading the newspaper or watching television: not at all 8. Moving or speaking so slowly that other people could have noticed. Or the opposite - being so fidgety or restless that you have been moving around a lot more than usual: not at all 9. Thoughts that you would be better off or of hurting yourself in some way: not at all Total score: 0 Depression Screening Interpretation: Negative 63679 - PHQ-9 Billing: Yes Source: Developed by Drs. Aime Kearney, Vicente Davis and colleagues, with an educational leigh ann from [employer]. Thrive Questionnaire Date Thrive assessed: 02/19/23 AUDIT C Alcohol Use Questionnaire (AUDIT-C) 1. How often do you have a drink containing alcohol?: Monthly or less Total Score: 1 Score Reviewed/Action Taken: Yes ROLO-7 AMB Questionnaire ROLO-7 Date ROLO - 7 assessed: 02/19/23 Source: Developed by Drs. Aime Kearney, Vicente Davis and colleagues, with an educational leigh ann from [employer]. Review of Systems Const Denies chills, Denies headache(s) and Denies weight loss ENT Denies headache(s) Card Denies chest pain, Denies syncope, Denies irregular heart rhythm and Denies dyspnea Resp Denies chest congestion, Denies cough and Denies dyspnea GI Denies abdominal pain, Denies change in stool character, Denies nausea and Denies vomiting Musc Denies deformity and Denies joint swelling Neuro Denies syncope and Denies headache(s) Physical exam (Primary Care) Vital Signs: Last Vital Signs Pulse 59 07/08/23 10:46 BP 158/84 H 07/08/23 10:46 Pulse Ox 99 07/08/23 10:46 Oxygen Delivery Method Room Air 07/08/23 10:46 BMI result Body Mass Index 29.7 Tobacco/Smoking Status: Tobacco use Status Tobacco use date assessed 02/19/23 07/08/23 10:47 Patient Tobacco Use Status Current everyday Tobacco 07/08/23 10:47 Tobacco use type Cigarette 07/08/23 10:47 e-Cigarette/Vaping Use Never Used 07/08/23 10:47 PHQ-9: PHQ-9 Score PHQ-9: Total score 0 07/08/23 10:59 Depression Screening Interpretation: Negative Thrive Assessment: Date of Thrive Assessment Date Thrive assessed 02/19/23 07/08/23 10:47 Const General: cooperative, comfortable, no acute distress and alert Neck Neck: Yes no lymphadenopathy Thyroid: Thyroid normal Resp Effort & Inspection: normal respiratory effort Auscultation: clear to auscultation bilaterally Percussion: percussion normal Cardio Jugular venous distension: no JVD Palpation: normal PMI Rate: regular rate Rhythm: regular rhythm Heart sounds: S1 normal heart sound present and S2 normal heart sound present GI Inspection: Yes normal to inspection Palpation (GI): No hepatosplenomegaly present Skin General skin exam: no rashes or lesions noted Extrem General: Yes no clubbing, cyanosis or edema Results AMB Hemoglobin A1c AMB Hemoglobin A1c 7.5 % Last Edit by GLENN Holguin on 07/08/23 10:59 Results Reviewed Results Reviewed: Laboratory Last Values Hgb A1c (Clinic) 7.5 % (4.0-6.0) H 07/08/23 10:48 Assessment and Plan Assessment & Plan (1) Diabetes mellitus with coincident hypertension: Code(s): E11.9 - Type 2 diabetes mellitus without complications; I10 - Essential (primary) hypertension Plan: stable; same rx (2) Hypertension: Code(s): I10 - Essential (primary) hypertension Plan: stable; same rx (3) Hyperlipidemia: Code(s): E78.5 - Hyperlipidemia, unspecified Plan: stable same rx Orders: Orders Lipid Panel Today E78.5 - Hyperlipidemia, unspecified Hemoglobin A1c Today R73.9 - Hyperglycemia, unspecified AMB Hemoglobin A1c Today E11.9 - Type 2 diabetes mellitus without complications Glucose Fasting Today R73.9 - Hyperglycemia, unspecified Coding Level of Care Code Est Pt Level 4 (99511) Diagnoses Diabetes mellitus with coincident hypertension E11.9; I10 Hypertension I10 Hyperlipidemia E78.5
== END 2023-07-08 11:10 | disposition home or self-care (01) ==
PROVIDERS: PCP Internal Medicine; Visit Provider Internal Medicine
DX: E11.9 Type 2 diabetes mellitus without complications (principal); I10 Essential (primary) hypertension; E78.5 Hyperlipidemia, unspecified
CPT/HCPCS: 83036; 99214

== ENCOUNTER 2023-10-07 20:09 | Emergency (ER) | payer OTHER, SELFPAY ==
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
[2023-10-07 20:24] VITALS: BP 92/54; BP 93/46; PULSE 50; PULSE 55; RESP 20; TEMP 36.6; O2SAT 100; BMI 27.0
--- NOTE | 2023-10-07 20:34 | MHC.EDTECH ---
PATIENT WAS BIBA ,EKG TAKEN AND WAS READ BY PROVIDER ,VITALS TAKEN ,PT WAS HOOKED UP TO OPHTHALMIC TECHNICIAN .
--- NOTE | 2023-10-07 20:39 | ECG_ITS ---
Test Reason : NNAMDI Blood Pressure : / mmHG Vent. Rate : 053 BPM Atrial Rate : 053 BPM P-R Int : 166 ms QRS Dur : 074 ms QT Int : 468 ms P-R-T Axes : 056 002 030 degrees QTc Int : 439 ms Sinus bradycardia Nonspecific ST abnormality Abnormal ECG When compared with ECG of 22-NOV-2021 14:08, No significant changes seen Referred By: Amisha Magdaleno Electronically Signed By:RAMONA CROWELL
--- NOTE | 2023-10-07 20:41 | MHC.EDTECH ---
pATIENT EKG TAKEN AT 2025 .
[2023-10-07 20:42] VITALS: BP 116/51; PULSE 53; RESP 22
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
[2023-10-07 21:18] LABS: Glucose, Whole Blood 261 mg/dL (60-115)
[2023-10-07] MEDS: iohexoL 350 MG/ML 100 ML INFUS..BTL IV (21:19)
[2023-10-07] MEDS: 0.9 % Sodium Chloride 1,000 ML 999 ML IVCONT (21:21)
[2023-10-07 21:22] VITALS: BP 142/58; PULSE 70; RESP 17; TEMP 36.6; O2SAT 97
[2023-10-07 21:23] LABS: MANUAL DIFF FLAG NO
--- NOTE | 2023-10-07 21:23 | MHC.EDTECH ---
Pt blood drawn and sent to lab .
[2023-10-07 21:25] LABS: Basophils Absolute Auto 0.1 X10*3/uL (0.0-0.2); Basophils Percent Auto 1.3 % (0-2); Eosinophils Absolute Auto 0.2 X10*3/uL (0.0-0.4); Eosinophils Percent Auto 2.9 % (0-4); Hematocrit 33.5 % (42.0-52.0); Hemoglobin 12.2 g/dl (14.0-18.0); Imm Gran Abs Auto 0.02 X10*3/uL (0.00-0.03); Imm Gran Pct Auto 0.4 % (0.0-0.4); Lymphocytes Absolute Auto 1.3 X10*3/uL (1.2-4.9); Lymphocytes Percent Auto 25.4 % (20-40); Mean Corpuscular HGB Conc 36.4 g/dl (31.0-36.0); Mean Corpuscular Hemoglobin 35.4 pg (27.0-33.0); Mean Corpuscular Volume 97.1 fL (80.0-98.0); Monocytes Absolute Auto 0.6 X10*3/uL (0.1-1.2); Monocytes Percent Auto 11.5 % (2-11); Neutrophils Absolute Auto 3.1 x10*3/uL (2.0-8.3); Neutrophils Percent Auto 58.5 % (45-73); Platelet Count 156 X10*3/uL (160-400); Red Blood Count 3.45 X10*6/uL (4.60-5.80); Red Cell Distribution Width 12.6 % (11.0-16.0); White Blood Count 5.2 X10*3/uL (4.8-10.8)
[2023-10-07] MEDS: ondansetron HCL 4 MG/2 ML VIAL IVPUSH (21:31)
[2023-10-07] MEDS: Morphine Sulfate 4 MG/ML CARTRIDGE IVPUSH ×2 (21:34→22:09)
[2023-10-07 21:39] LABS: INTERNATIONAL NORM RATIO 0.9 (0.9-1.1); Prothrombin Time 11.3 SEC (11.1-13.3)
[2023-10-07 21:40] LABS: Alanine Aminotransferase 39 U/L (0-40); Albumin Level 3.5 g/dL (3.5-5.0); Alkaline Phosphatase 69 U/L (39-117); Anion Gap 15 (12-20); Aspartate Amino Transferase 77 U/L (5-37); Bilirubin Direct 0.4 mg/dL (0.0-0.5); Bilirubin Total 0.7 mg/dL (0.0-1.0); Blood Urea Nitrogen 18 mg/dL (9-16); Calcium 8.6 mg/dL (8.4-10.2); Carbon Dioxide 21 mmol/L (22-29); Chloride 98 mmol/L (96-108); Estimated Glomerular Filt Rate 46; Glucose Random 252 mg/dL (60-115); Lipase 19 U/L (8-78); Magnesium 1.8 mg/dL (1.6-2.6); Potassium 5.1 mmol/L (3.3-5.1); Sodium 129 mmol/L (135-145); Total Protein 6.8 g/dL (6.5-8.0)
[2023-10-07 21:48] LABS: Troponin-I High Sensitivity 5.3 ng/L (<3.5-35.0)
[2023-10-07 22:09] LABS: Ethanol 210 mg/dL
--- NOTE | 2023-10-07 22:20 | PC.NURSE ---
two liters of IV NS infused. repeat chem sent to lab. pt reports 06/22 sternum pain - second dose of IV morphine given per dec. pt resting at this time. C collar removed by provider.
[2023-10-07 22:33] LABS: Anion Gap 15 (12-20); Blood Urea Nitrogen 17 mg/dL (9-16); Calcium 8.3 mg/dL (8.4-10.2); Carbon Dioxide 22 mmol/L (22-29); Chloride 100 mmol/L (96-108); Creatinine Clr Calc Pharmacy 49.9; Estimated Glomerular Filt Rate 51; Glucose Random 242 mg/dL (60-115); Potassium 4.6 mmol/L (3.3-5.1); Sodium 132 mmol/L (135-145)
--- NOTE | 2023-10-07 23:04 | MHC.EDTECH ---
Patient is refusing to change into hospital attire ,khai Echavarria aware ,Patient has some dry blood on both of his hands ,i offer to clean it ,Patient refused ,rn aware .
[2023-10-07 23:20] VITALS: BP 133/60; PULSE 70; RESP 16; TEMP 36.6; O2SAT 97
--- NOTE | 2023-10-07 23:22 | MHC.EDTECH ---
Patient refused repeated trop ,Provider aware ,vitals taken .
--- NOTE | 2023-10-07 23:34 | PC.NURSE ---
Took over care from CASSY Andrew, pt refusing to change management, pt refusing care and leaving against medical advice, Dr Larsen aware. Reviewed discharge instruction with pt , pt verbalized understanding.
--- NOTE | 2023-10-07 23:41 | PC.NURSE ---
pt a&o, educated on the importance for staying and getting treatment. pt still refusing to stay. pt discharge to awaiting room
== END 2023-10-07 23:44 | disposition left against medical advice (07) ==
PROVIDERS: Emergency Medicine; Emergency Provider Student in an Organized Health Care Education/Training Program
DX: S22.21XA Fracture of manubrium, initial encounter for closed fracture (principal); S22.32XA Fracture of one rib, left side, initial encounter for closed fracture; V43.52XA Car driver injured in collision with other type car in traffic accident, initial encounter; E87.1 Hypo-osmolality and hyponatremia; N17.9 Acute kidney failure, unspecified; R00.0 Tachycardia, unspecified; E11.9 Type 2 diabetes mellitus without complications; I10 Essential (primary) hypertension; E78.5 Hyperlipidemia, unspecified; F17.210 Nicotine dependence, cigarettes, uncomplicated; Y93.89 Activity, other specified; Y92.414 Local residential or business street as the place of occurrence of the external cause; Y99.9 Unspecified external cause status; Z53.29 Procedure and treatment not carried out because of patient's decision for other reasons; Z79.4 Long term (current) use of insulin; Z79.02 Long term (current) use of antithrombotics/antiplatelets; Z79.899 Other long term (current) drug therapy
CPT/HCPCS: 36415; 70450; 71260; 72125; 74177; 80048; 80076; 80307; 82947; 83690; 83735; 84484; 85025; 85610; 93005; 96361; 96374; 96375; 96376; 99285; J2270; J2405; Q9967

== ENCOUNTER → 2023-10-07 20:39 | Outpatient (BNV) | payer MEDICARE, MEDICAID, SELFPAY | PROVIDERS: Emergency Provider Student in an Organized Health Care Education/Training Program; Visit Provider Internal Medicine | DX: R00.1 Bradycardia, unspecified (principal) | CPT/HCPCS: 93010 ==

== ENCOUNTER 2023-10-09 18:42 | Emergency (ER) | payer OTHER, SELFPAY ==
[2023-10-09 18:55] VITALS: BP 176/78; PULSE 56; O2SAT 100
[2023-10-09 19:14] VITALS: BP 113/65; PULSE 57; RESP 18; TEMP 36.4; O2SAT 98; BMI 27.3
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
[2023-10-09 20:37] LABS: MANUAL DIFF FLAG NO
[2023-10-09 20:38] LABS: Basophils Absolute Auto 0.1 X10*3/uL (0.0-0.2); Basophils Percent Auto 0.9 % (0-2); Eosinophils Absolute Auto 0.1 X10*3/uL (0.0-0.4); Eosinophils Percent Auto 2.2 % (0-4); Hematocrit 35.3 % (42.0-52.0); Hemoglobin 12.8 g/dl (14.0-18.0); Imm Gran Abs Auto 0.01 X10*3/uL (0.00-0.03); Imm Gran Pct Auto 0.2 % (0.0-0.4); Lymphocytes Absolute Auto 1.7 X10*3/uL (1.2-4.9); Mean Corpuscular HGB Conc 36.3 g/dl (31.0-36.0); Mean Corpuscular Hemoglobin 34.5 pg (27.0-33.0); Mean Corpuscular Volume 95.1 fL (80.0-98.0); Mean Platelet Volume 9.1 fL (9.4-12.4); Monocytes Absolute Auto 0.8 X10*3/uL (0.1-1.2); Monocytes Percent Auto 11.9 % (2-11); Neutrophils Absolute Auto 3.8 x10*3/uL (2.0-8.3); Neutrophils Percent Auto 58.8 % (45-73); Platelet Count 162 X10*3/uL (160-400); Red Blood Count 3.71 X10*6/uL (4.60-5.80); Red Cell Distribution Width 12.7 % (11.0-16.0); White Blood Count 6.5 X10*3/uL (4.8-10.8)
[2023-10-09 20:51] LABS: Alanine Aminotransferase 32 U/L (0-40); Albumin Level 3.8 g/dL (3.5-5.0); Alkaline Phosphatase 76 U/L (39-117); Anion Gap 14 (12-20); Aspartate Amino Transferase 60 U/L (5-37); Bilirubin Total 0.7 mg/dL (0.0-1.0); Blood Urea Nitrogen 17 mg/dL (9-16); Calcium 9.5 mg/dL (8.4-10.2); Carbon Dioxide 25 mmol/L (22-29); Chloride 99 mmol/L (96-108); Creatinine Clr Calc Pharmacy 69.6; Estimated Glomerular Filt Rate > 60; Glucose Random 114 mg/dL (60-115); Lipase 10 U/L (8-78); Magnesium 1.8 mg/dL (1.6-2.6); Sodium 134 mmol/L (135-145); Total Protein 7.6 g/dL (6.5-8.0)
[2023-10-09 21:00] VITALS: BP 142/70; RESP 20; TEMP 36.7; O2SAT 99
--- NOTE | 2023-10-09 21:31 | ECG_ITS ---
Test Reason : RIB PAIN Blood Pressure : / mmHG Vent. Rate : 058 BPM Atrial Rate : 058 BPM P-R Int : 148 ms QRS Dur : 086 ms QT Int : 464 ms P-R-T Axes : 051 -12 040 degrees QTc Int : 455 ms Sinus bradycardia Premature ventricular complexes Otherwise normal ECG When compared with ECG of 07-OCT-2023 20:22, Premature ventricular complexes present Referred By: Bharti Chandler Electronically Signed By:RAMONA CROWELL
[2023-10-09] MEDS: oxyCODONE HCl Immed Release 5 MG TABLET 10 MG PO (22:07)
== END 2023-10-09 22:20 | disposition left against medical advice (07) ==
PROVIDERS: Physician Assistant Medical; Emergency Provider Emergency Medicine
DX: S22.20XA Unspecified fracture of sternum, initial encounter for closed fracture (principal); R07.81 Pleurodynia; F17.210 Nicotine dependence, cigarettes, uncomplicated; X58.XXXA Exposure to other specified factors, initial encounter; Y93.9 Activity, unspecified; Y92.9 Unspecified place or not applicable; Y99.9 Unspecified external cause status; Z71.6 Tobacco abuse counseling
CPT/HCPCS: 36415; 80053; 83690; 83735; 85025; 93005; 99283; 99284

== ENCOUNTER → 2023-10-09 21:31 | Outpatient (BNV) | payer OTHER, MEDICAID, SELFPAY | PROVIDERS: Emergency Provider Emergency Medicine; Visit Provider Internal Medicine | DX: R07.82 Intercostal pain (principal) | CPT/HCPCS: 93010 ==

== ENCOUNTER 2023-11-11 10:38 | Outpatient (AMB) | payer OTHER, SELFPAY ==
[2023-11-11 10:39] VITALS: BP 148/80; PULSE 59; O2SAT 99; BMI 27.1
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
== END 2023-11-11 11:07 | disposition home or self-care (01) ==
PROVIDERS: PCP Internal Medicine; Visit Provider Internal Medicine
DX: E11.9 Type 2 diabetes mellitus without complications (principal); S22.20XA Unspecified fracture of sternum, initial encounter for closed fracture
CPT/HCPCS: 83036; 99213

== ENCOUNTER 2024-04-26 12:22 | Emergency (ER) | payer OTHER, SELFPAY ==
[2024-04-26 12:26] VITALS: BP 108/55; BP 73/44; PULSE 58; RESP 16; TEMP 36.8; O2SAT 100; BMI 26.3
[2024-04-26 12:36] VITALS: BP 108/55; PULSE 58; RESP 16; TEMP 36.8; O2SAT 100
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
[2024-04-26 14:01] VITALS: BP 113/62; PULSE 52; RESP 16; O2SAT 100
[2024-04-26 14:12] VITALS: BP 127/59; BP 159/67; PULSE 55
[2024-04-26 14:13] VITALS: BP 90/50; PULSE 64
[2024-04-26 14:16] LABS: MANUAL DIFF FLAG NO
[2024-04-26 14:31] LABS: Alanine Aminotransferase 37 U/L (0-40); Albumin Level 4.2 g/dL (3.5-5.0); Alkaline Phosphatase 72 U/L (39-117); Anion Gap 19 (12-20); Aspartate Amino Transferase 83 U/L (5-37); Bilirubin Total 0.9 mg/dL (0.0-1.0); Blood Urea Nitrogen 23 mg/dL (9-16); Calcium 10.3 mg/dL (8.4-10.2); Carbon Dioxide 19 mmol/L (22-29); Chloride 96 mmol/L (96-108); Estimated Glomerular Filt Rate 28; Ethanol 38 mg/dL; Glucose Random 160 mg/dL (60-115); Magnesium 2.2 mg/dL (1.6-2.6); Sodium 130 mmol/L (135-145); Total Protein 7.9 g/dL (6.5-8.0)
[2024-04-26 14:41] LABS: Basophils Percent Auto 0.4 % (0-2); Eosinophils Percent Auto 0.3 % (0-4); Hematocrit 29.8 % (42.0-52.0); Imm Gran Abs Auto 0.03 X10*3/uL (0.00-0.03); Imm Gran Pct Auto 0.4 % (0.0-0.4); Lymphocytes Absolute Auto 1.1 X10*3/uL (1.2-4.9); Mean Platelet Volume 9.8 fL (9.4-12.4); Monocytes Absolute Auto 0.7 X10*3/uL (0.1-1.2); Monocytes Percent Auto 9.3 % (2-11); Neutrophils Absolute Auto 5.2 x10*3/uL (2.0-8.3); Neutrophils Percent Auto 74.6 % (45-73); Platelet Count 168 X10*3/uL (160-400); Red Blood Count 3.04 X10*6/uL (4.60-5.80); Red Cell Distribution Width 13.3 % (11.0-16.0); SCAN SMEAR FLAG 1
[2024-04-26 14:48] LABS: Mean Corpuscular Hemoglobin 32.8 pg (27.0-33.0)
[2024-04-26 14:49] LABS: Mean Corpuscular HGB Conc 33.6 g/dl (31.0-36.0)
[2024-04-26 17:22] VITALS: BP 90/50; PULSE 64; RESP 18; TEMP 36.3; O2SAT 96
== END 2024-04-26 17:23 | disposition left against medical advice (07) ==
PROVIDERS: Emergency Provider Internal Medicine; PCP Internal Medicine
DX: S00.91XA Abrasion of unspecified part of head, initial encounter (principal); I95.1 Orthostatic hypotension; E11.9 Type 2 diabetes mellitus without complications; M54.2 Cervicalgia; W01.0XXA Fall on same level from slipping, tripping and stumbling without subsequent striking against object, initial encounter; Y93.9 Activity, unspecified; Y92.480 Sidewalk as the place of occurrence of the external cause; Y99.8 Other external cause status; Z79.899 Other long term (current) drug therapy
CPT/HCPCS: 36415; 80053; 80307; 83735; 85025; 99283; 99284

== ENCOUNTER 2024-05-05 11:29 | Outpatient (AMB) | payer OTHER, SELFPAY ==
--- NOTE | 2024-05-05 11:32 | A.OFFPC_ITS ---
Vital Signs 05/05/24 11:33 Height 5 ft 6 in Weight 160 lb BMI 25.8 BP 140/80 H Blood Pressure Location Lt brachial Position Sitting Pulse 67 Pulse Source Pulse Oximeter Pulse Oximetry (%) 100 Oxygen Delivery Method Room Air Intake Visit Reasons: Follow Up Envelope Maker: Not Required per policy Accompanied by: Self / Same As Patient Allergies aspirin [ASPIRIN] Allergy (Unknown, Verified 04/26/24 12:32) HIVES Medication List - Last Reconciled 05/05/24 by Edgardo Mcleod MD atenolol 50 mg PO ONCE blood sugar diagnostic (Accu-Chek Erika Plus test strips) To check blood sugars twice a day diphenhydramine HCl (Benadryl Allergy) 25 mg PO BEDTIME PRN erythromycin 0.5 inches ophthalmic (eye) TID hydrochlorothiazide 25 mg PO DAILY insulin asp prt-insulin aspart 100 unit/mL (70-30) 30 units (0.3 mL) subcut BID insulin lispro protamin-lispro 100 unit/mL (75-25) (Humalog Mix 75-25(U-100)Insuln) 35 units (0.35 mL) subcut BID insulin syringe-needle U-100 (BD Veo Insulin Syringe Ultra-Fine) 0.5 mL miscellaneous BID omeprazole 20 mg PO DAILY pravastatin 80 mg PO DAILY Tobacco use date assessed: 11/11/23 Dental Screening Dental Screen Date: 11/11/23 HPI Follow Up HPI Details hypertension on rx; has decreased metoprolol to 25 mg qd; doing well [facility] Medical History Hyperlipidemia Diabetes HTN (hypertension) Surgical History History of bunionectomy Family History Father No problems noted. Mother No problems noted. Social History Housing: House Alcohol intake: current Alcohol intake frequency: 3 or more drinks per day Alcohol type: hard liquor Patient Tobacco Use Status: Current everyday Tobacco user Tobacco use type: Cigarette Cigarettes Per Day: 10 e-Cigarette/Vaping Use: Never Used Second Hand Smoke Exposure: Yes service: No Current occupational status: disabled Cognitive needs: No Hearing needs: No Vision needs: No Questionnaire Thrive Questionnaire Date Thrive assessed: 11/11/23 ROLO-7 AMB Questionnaire ROLO-7 Date ROLO - 7 assessed: 11/11/23 Source: Developed by Drs. Aime Kearney, Jeanine Hogan, Vicente Vizcarra and colleagues, with an educational leigh ann from [employer]. Review of Systems Const Denies chills, Denies headache(s) and Denies weight loss ENT Denies headache(s) Card Denies chest pain, Denies syncope, Denies irregular heart rhythm and Denies dyspnea Resp Denies chest congestion, Denies cough and Denies dyspnea GI Denies abdominal pain, Denies change in stool character, Denies nausea and Denies vomiting Musc Denies deformity and Denies joint swelling Neuro Denies syncope and Denies headache(s) Physical exam (Primary Care) Vital Signs: Last Vital Signs Pulse 67 05/05/24 11:33 BP 140/80 H 05/05/24 11:33 Pulse Ox 100 05/05/24 11:33 Oxygen Delivery Method Room Air 05/05/24 11:33 BMI result Body Mass Index 25.8 Tobacco/Smoking Status: Tobacco use Status Tobacco use date assessed 11/11/23 05/05/24 11:33 Patient Tobacco Use Status Current everyday Tobacco 05/05/24 11:33 Tobacco use type Cigarette 05/05/24 11:33 e-Cigarette/Vaping Use Never Used 05/05/24 11:33 Thrive Assessment: Date of Thrive Assessment Date Thrive assessed 11/11/23 05/05/24 11:33 Const General: cooperative, comfortable, no acute distress and alert Neck Neck: Yes no lymphadenopathy Thyroid: Thyroid normal Resp Effort & Inspection: normal respiratory effort Auscultation: clear to auscultation bilaterally Percussion: percussion normal Cardio Jugular venous distension: no JVD Palpation: normal PMI Rate: regular rate Rhythm: regular rhythm Heart sounds: S1 normal heart sound present and S2 normal heart sound present GI Inspection: Yes normal to inspection Palpation (GI): No hepatosplenomegaly present Skin General skin exam: no rashes or lesions noted Extrem General: Yes no clubbing, cyanosis or edema Results AMB Hemoglobin A1c AMB Hemoglobin A1c 7.9 % Last Edit by GLENN Holguin on 05/05/24 11:45 Results Reviewed Results Reviewed: Laboratory Last Values Hgb A1c (Clinic) 7.9 % (4.0-6.0) H 05/05/24 11:33 Assessment and Plan Assessment & Plan (1) Hypertension: Code(s): I10 - Essential (primary) hypertension Plan: stable; same rx Orders: Orders AMB Hemoglobin A1c Today E11.9 - Type 2 diabetes mellitus without complications, I10 - Essential (primary) hypertension Medications: Changed From atenolol 50 mg PO BID 180 tabs 8RF To atenolol 50 mg PO ONCE Coding Level of Care Code Est Pt Level 3 (23940) Diagnoses Hypertension I10
[2024-05-05 11:33] VITALS: BP 140/80; PULSE 67; O2SAT 100; BMI 25.8
== END 2024-05-05 11:56 | disposition home or self-care (01) ==
PROVIDERS: Visit Provider Internal Medicine
DX: E11.9 Type 2 diabetes mellitus without complications (principal); I10 Essential (primary) hypertension
CPT/HCPCS: 83036; 99213

== ENCOUNTER 2024-06-07 11:41 | Outpatient (AMB) | payer OTHER, SELFPAY ==
[2024-06-07 11:43] VITALS: BP 148/82; PULSE 60; O2SAT 96; BMI 26.1
--- NOTE | 2024-06-07 11:43 | A.OFFPC_ITS ---
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 Accompanied by: Self / Same As Patient Allergies aspirin [ASPIRIN] Allergy (Unknown, Verified 06/07/24 11:43) HIVES Medication List - Last Reconciled 06/08/24 by Edgardo Mcleod MD atenolol 25 mg PO DAILY blood sugar diagnostic (Accu-Chek Erika Plus test strips) To check blood sugars twice a day diphenhydramine HCl (Benadryl Allergy) 25 mg PO BEDTIME PRN erythromycin 0.5 inches ophthalmic (eye) TID hydrochlorothiazide 25 mg PO DAILY insulin asp prt-insulin aspart 100 unit/mL (70-30) 30 units (0.3 mL) subcut BID insulin lispro protamin-lispro 100 unit/mL (75-25) (Humalog Mix 75-25(U-100)Insuln) 35 units (0.35 mL) subcut BID insulin syringe-needle U-100 (BD Veo Insulin Syringe Ultra-Fine) 0.5 mL miscellaneous BID omeprazole 20 mg PO DAILY pravastatin 80 mg PO DAILY Tobacco use date assessed: 11/11/23 Dental Screening Dental Screen Date: 11/11/23 HPI 1mth f/u HPI Details N on rx; doing well and compliant [facility] Medical History Hyperlipidemia Diabetes HTN (hypertension) Surgical History History of bunionectomy Family History Father No problems noted. Mother No problems noted. Social History Housing: House Alcohol intake: current Alcohol intake frequency: 3 or more drinks per day Alcohol type: hard liquor Patient Tobacco Use Status: Current everyday Tobacco user Tobacco use type: Cigarette Cigarettes Per Day: 10 e-Cigarette/Vaping Use: Never Used Second Hand Smoke Exposure: Yes service: No Current occupational status: disabled Cognitive needs: No Hearing needs: No Vision needs: No Questionnaire PHQ-9 Over the last 2 weeks, how often have you been bothered by any of the following problems? 1. Little interest or pleasure in doing things: not at all 2. Feeling down, depressed, or hopeless: not at all 3. Trouble falling or staying asleep, or sleeping too much: not at all 4. Feeling tired or having little energy: not at all 5. Poor appetite or overeating: not at all 6. Feeling bad about yourself - or that you are a failure or have let yourself or your family down: not at all 7. Trouble concentrating on things, such as reading the newspaper or watching television: not at all 8. Moving or speaking so slowly that other people could have noticed. Or the o pposite - being so fidgety or restless that you have been moving around a lot more than usual: not at all 9. Thoughts that you would be better off or of hurting yourself in some way: not at all Total score: 0 Depression Screening Interpretation: Negative Depression Screening Done: Yes 56609 - PHQ-9 Billing: Yes Source: Developed by Drs. Aime Kearney, Jeanine Hogan, Vicente Vizcarra and colleagues, with an educational leigh ann from [employer]. Thrive Questionnaire Date Thrive assessed: 11/11/23 AUDIT C Alcohol Use Questionnaire (AUDIT-C) 1. How often do you have a drink containing alcohol?: Monthly or less Total Score: 1 Score Reviewed/Action Taken: Yes ROLO-7 AMB Questionnaire ROLO-7 Date ROLO - 7 assessed: 11/11/23 Source: Developed by Drs. Aime Kearney, Jeanine Hogan, Vicente Vizcarra and colleagues, with an educational leigh ann from [employer]. Review of Systems Const Denies chills, Denies headache(s) and Denies weight loss ENT Denies headache(s) Card Denies chest pain, Denies syncope, Denies irregular heart rhythm and Denies dyspnea Resp Denies chest congestion, Denies cough and Denies dyspnea GI Denies abdominal pain, Denies change in stool character, Denies nausea and Denies vomiting Musc Denies deformity and Denies joint swelling Neuro Denies syncope and Denies headache(s) Physical exam (Primary Care) Vital Signs: Last Vital Signs Pulse 60 06/07/24 11:43 BP 148/82 H 06/07/24 11:43 Pulse Ox 96 06/07/24 11:43 Oxygen Delivery Method Room Air 06/07/24 11:43 BMI result Body Mass Index 26.1 Tobacco/Smoking Status: Tobacco use Status Tobacco use date assessed 11/11/23 06/07/24 11:46 Patient Tobacco Use Status Current everyday Tobacco 06/07/24 11:46 Tobacco use type Cigarette 06/07/24 11:46 e-Cigarette/Vaping Use Never Used 06/07/24 11:46 PHQ-9: PHQ-9 Score PHQ-9: Total score 0 06/07/24 11:46 Depression Screening Interpretation: Negative Thrive Assessment: Date of Thrive Assessment Date Thrive assessed 11/11/23 06/07/24 11:46 Const General: cooperative, comfortable, no acute distress and alert Neck Neck: Yes no lymphadenopathy Thyroid: Thyroid normal Resp Effort & Inspection: normal respiratory effort Auscultation: clear to auscultation bilaterally Percussion: percussion normal Cardio Jugular venous distension: no JVD Palpation: normal PMI Rate: regular rate Rhythm: regular rhythm Heart sounds: S1 normal heart sound present and S2 normal heart sound present GI Inspection: Yes normal to inspection Palpation (GI): No hepatosplenomegaly present Skin General skin exam: no rashes or lesions noted Extrem General: Yes no clubbing, cyanosis or edema Assessment and Plan Assessment & Plan (1) Hypertension: Code(s): I10 - Essential (primary) hypertension Plan: stable; same rx Orders: Orders Complete Blood Count Auto Diff Today Z13.0 - Encounter for screening for diseases of the blood and blood-forming organs and certain disorders involving the immune mechanism Hemoglobin A1c Today R73.9 - Hyperglycemia, unspecified Lipid Panel Today Z13.220 - Encounter for screening for lipoid disorders Thyroid Stimulating Hormone Today Z13.29 - Encounter for screening for other suspected endocrine disorder Comprehensive [place]. Panel Fast Today Z13.9 - Encounter for screening, unspecif ied Coding Level of Care Code Est Pt Level 3 (56916) Diagnoses Hypertension I10
== END 2024-06-07 12:04 | disposition home or self-care (01) ==
PROVIDERS: PCP Internal Medicine; Visit Provider Internal Medicine
DX: I10 Essential (primary) hypertension (principal)
CPT/HCPCS: 99213

== ENCOUNTER 2024-09-17 19:29 | Emergency (ER) | payer OTHER, SELFPAY ==
[2024-09-17 19:42] VITALS: BP 153/60; BP 168/100; PULSE 63; PULSE 65; RESP 16; TEMP 37.1; O2SAT 100; O2SAT 99; BMI 27.5
--- NOTE | 2024-09-17 21:57 | ED_ITS ---
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 patient's alcoholic previous liver enzymes were normal Related Data Home Medications ?Medication ?Instructions ?Recorded ?Confirmed diphenhydramine HCl 25 mg tablet 25 mg PO BEDTIME PRN 11/22/21 06/08/24 (Benadryl Allergy) omeprazole 20 mg capsule,delayed 20 mg PO DAILY 11/22/21 06/08/24 release atenolol 25 mg tablet 25 mg PO DAILY 06/07/24 06/08/24 Previous Rx's ?Medication ?Instructions ?Recorded hydrochlorothiazide 25 mg tablet 25 mg PO DAILY #14 tabs 11/22/21 erythromycin 5 mg/gram (0.5 %) eye 0.5 inch ophthalmic (eye) TID #3.5 01/23/23 ointment grams insulin aspar prt-insulin aspart 30 unit (0.3 mL) subcut BID #10 mL 05/01/23 100 unit/mL (70-30) subcutaneous soln blood sugar diagnostic (Accu-Chek #10 ea 11/22/23 Erika Plus test strips) insulin lispro protamine-lispro 35 unit (0.35 mL) subcut BID #10 mL 05/05/24 100 unit/mL (75-25) subcutaneous susp (Humalog Mix 75-25(U-100)Insuln) pravastatin 80 mg tablet 80 mg PO DAILY #90 tabs 07/07/24 insulin syringe-needle U-100 1/2 0.5 ml miscellaneous BID #200 ea 07/08/24 mL 31 gauge x 15/64 (BD Veo Insulin Syringe Ultra-Fine) doxycycline hyclate 100 mg tablet 100 mg PO BID #20 tabs 09/17/24 hydroxyzine HCl 25 mg tablet 25 mg PO TID PRN itching #30 tabs 09/17/24 Allergies Allergy/AdvReac Type Severity Reaction Status Date / Time aspirin [ASPIRIN] Allergy Unknown HIVES Verified 09/17/24 19:45 Review of Systems Review of Systems: Yes all other systems are reviewed and are negative PMFSH Past Medical History Medical History Hyperlipidemia Diabetes HTN (hypertension) Surgical History History of bunionectomy Family History Family History Father No problems noted. Mother No problems noted. Social History Social History Housing: House Alcohol intake: current Alcohol intake frequency: 3 or more drinks per day Alcohol type: hard liquor Patient Tobacco Use Status: Current everyday Tobacco user Tobacco use type: Cigarette Cigarettes Per Day: 10 e-Cigarette/Vaping Use: Never Used Second Hand Smoke Exposure: Yes Advance Directives: No Advance Directives Information Provided: No service: No Current occupational status: disabled Cognitive needs: No Hearing needs: No Vision needs: No Physical Exam ED Vital Signs: Vital Signs - 24 hr 09/17/24 19:42 09/17/24 22:27 09/17/24 22:42 Temperature 98.7 F 98.6 F 98.4 F Pulse Rate 65 59 84 Respiratory Rate 16 20 16 Blood Pressure 153/60 H 90/48 L 99/45 L Pulse Oximetry 100 99 96 Oxygen Delivery Method Room Air Room Air Room Air BMI result Body Mass Index 27.5 Appearance: Alert. Oriented X3. No acute distress. Eyes: PERRLA, No Nystagmus ENT: Pharynx normal. Oral Mucosa moist Neck: Normal inspection. Neck supple. CVS: Normal heart rate and rhythm. Pulses normal. Respiratory: No respiratory distress. Equal air entry bilateral, no wheezing/rales/rhonchi Abdomen: Soft and nontender. Bowel sounds are present, no mass palpable, no CVA tenderness Skin: Skin warm and dry. Rash over the both extremities with the with skin breakdown and infection no rash in the back for the checked Extremities: No lower extremity edema. No calf tenderness Neuro: Oriented X 3. No motor deficit. Medications Administered Discontinued Medications Generic Name Dose Route Start Last Admin Trade Name Freq PRN Reason Stop Dose Admin Doxycycline Monohydrate 100 mg 09/17/24 22:41 09/17/24 22:47 Doxycycline Monohydrate 100 Mg Capsule PO 09/17/24 22:42 100 mg ONCE ONE Administration Hydroxyzine HCl 25 mg 09/17/24 22:41 09/17/24 22:47 Hydroxyzine Hcl 25 Mg Tablet PO 09/17/24 22:42 25 mg ONCE ONE Administration Medical Decision Making Medical Decision Making [facility] Narrative: Patient is educated rash mostly on the area where he can reach starts scratching in from ulcerated area which are infected will prescribe doxycycline and Atarax Discharge Plan Discharge Clinical Impression: Chronic urticaria Patient Disposition: Home, Self-Care Instructions: Urticaria (ED) Additional Instructions: Take antibiotic as prescribed for infected wounds Atarax for itching Stop drinking alcohol Prescriptions: New hydroxyzine HCl 25 mg tablet 25 mg PO TID PRN (Reason: itching) Qty: 30 0RF doxycycline hyclate 100 mg tablet 100 mg PO BID Qty: 20 0RF No Action insulin asp prt-insulin aspart 100 unit/mL (70-30) solution 30 unit subcut BID Qty: 10 8RF (DME) Accu-Chek Erika Plus test strp Strip See Rx Instructions .ROUTE .MEDSUPPLY Qty: 10 8RF Rx Instructions: To check blood sugars twice a day Humalog Mix 75-25(U-100)Insuln 100 unit/mL (75-25) suspension 35 unit subcut BID Qty: 10 8RF pravastatin 80 mg tablet 80 mg PO DAILY Qty: 90 8RF insulin syringe-needle U-100 [BD Veo Insulin Syringe UF] 1/2 mL 31 gauge x 15/64 syringe 0.5 ml miscellaneous BID Qty: 200 8RF hydrochlorothiazide 25 mg tablet 25 mg PO DAILY Qty: 14 0RF erythromycin 5 mg/gram (0.5 %) ointment 0.5 inch ophthalmic (eye) TID Qty: 3.5 0RF atenolol 25 mg tablet 25 mg PO DAILY diphenhydramine HCl [Benadryl Allergy] 25 mg tablet 25 mg PO BEDTIME PRN omeprazole 20 mg capsule,delayed release(DR/EC) 20 mg PO DAILY Print Language: Samoan
[2024-09-17 22:27] VITALS: BP 90/48; PULSE 59; RESP 20; TEMP 37; O2SAT 99
[2024-09-17 22:42] VITALS: BP 99/45; PULSE 84; RESP 16; TEMP 36.9; O2SAT 96
[2024-09-17] MEDS: hydrOXYzine HCL 25 MG TABLET PO (22:47)
[2024-09-17] MEDS: Doxycycline Monohydrate 100 MG CAPSULE PO (22:47)
[2024-09-17 22:53] VITALS: BP 99/45; PULSE 84; RESP 16; TEMP 36.9; O2SAT 96
== END 2024-09-17 22:54 | disposition home or self-care (01) ==
PROVIDERS: Emergency Provider Internal Medicine
DX: L50.8 Other urticaria (principal); E11.9 Type 2 diabetes mellitus without complications; I10 Essential (primary) hypertension; E78.5 Hyperlipidemia, unspecified; F17.210 Nicotine dependence, cigarettes, uncomplicated; Z79.4 Long term (current) use of insulin; Z79.899 Other long term (current) drug therapy; Z79.02 Long term (current) use of antithrombotics/antiplatelets
CPT/HCPCS: 99283; 99284

== ENCOUNTER 2024-11-05 15:29 | Emergency (ER) | payer OTHER, SELFPAY ==
--- NOTE | ~2024-11-05 | XR_ITS ---
CLINICAL HISTORY: atraumatic great toe bruising 3 view left foot Comparison: None Findings: No acute fracture. No dislocation. Pes planus is present. No acute fracture. No dislocation. No evidence of osteomyelitis. No significant arthritic change or erosions. No ankle effusion. No radiopaque foreign body. There are vascular calcifications. IMPRESSION: No acute bony abnormality. This document has been electronically signed by: Elis Quezada MD on 11/05/2024 17:10:19
[2024-11-05 16:18] VITALS: BP 123/67; PULSE 60; RESP 18; TEMP 36.8; O2SAT 100; BMI 26.0
--- NOTE | 2024-11-05 16:21 | ED.GENADULT ---
HPI - General Adult General Chief complaint: Extremity Problem Stated complaint: toe turned purple, diabetic Time Seen by Provider: 11/05/24 21:58 Source: patient, RN notes reviewed and old records reviewed Mode of arrival: ambulatory Limitations: no limitations History of Present Illness ED Provider: Cari HPI narrative: 59-year-old male past medical history significant for insulin-dependent diabetes, hypertension presents for evaluation of discoloration to his left great toe. Patient denies any specific injury, he would not drop anything on his toe. He did not stub his toe or step on anything. He reports that about 3 weeks ago he 1st noticed discoloration to the toenail at the base of the toenail. She will be thereafter he developed some bleeding just behind the toenail which resolved on its own. The patient states that today he has soak the toe in warm water to try and keep it clean He presents to the ER today as he noticed discoloration to the tip of the toe itself as opposed to the toenail. He has no pain to the area, no drainage. Denies any history of neuropathy and reports that he has gross sensation intact to the great toe Related Data Home Medications ?Medication ?Instructions ?Recorded ?Confirmed diphenhydramine HCl 25 mg tablet 25 mg PO BEDTIME PRN 11/22/21 06/08/24 (Benadryl Allergy) omeprazole 20 mg capsule,delayed 20 mg PO DAILY 11/22/21 06/08/24 release atenolol 25 mg tablet 25 mg PO DAILY 06/07/24 06/08/24 Previous Rx's ?Medication ?Instructions ?Recorded hydrochlorothiazide 25 mg tablet 25 mg PO DAILY #14 tabs 11/22/21 erythromycin 5 mg/gram (0.5 %) eye 0.5 inch ophthalmic (eye) TID #3.5 01/23/23 ointment grams insulin aspar prt-insulin aspart 30 unit (0.3 mL) subcut BID #10 mL 05/01/23 100 unit/mL (70-30) subcutaneous soln blood sugar diagnostic (Accu-Chek #10 ea 11/22/23 Erika Plus test strips) insulin lispro protamine-lispro 35 unit (0.35 mL) subcut BID #10 mL 05/05/24 100 unit/mL (75-25) subcutaneous susp (Humalog Mix 75-25(U-100)Insuln) pravastatin 80 mg tablet 80 mg PO DAILY #90 tabs 07/07/24 insulin syringe-needle U-100 1/2 0.5 ml miscellaneous BID #200 ea 07/08/24 mL 31 gauge x 15/64 (BD Veo Insulin Syringe Ultra-Fine) doxycycline hyclate 100 mg tablet 100 mg PO BID #20 tabs 09/17/24 hydroxyzine HCl 25 mg tablet 25 mg PO TID PRN itching #30 tabs 09/17/24 Allergies Allergy/AdvReac Type Severity Reaction Status Date / Time aspirin [ASPIRIN] Allergy Unknown HIVES Verified 11/05/24 16:24 Review of Systems Constitutional: Constitutional: Denies body ache(s), Denies chills, Denies fever(s) and Denies headache(s) Eyes: Eyes: Denies blurry vision ENT: Denies headache(s) Cardiovascular: Cardiovascular: Denies chest pain Musculoskeletal: Musculoskeletal: Denies arthralgias, Denies joint swelling and Denies limited range of motion Integumentary/Breasts: Skin/Breast: Reports unusual bruising Neurologic: Denies headache(s) [facility] Past Medical History Medical History Hyperlipidemia Diabetes HTN (hypertension) Surgical History History of bunionectomy Family History Family History Father No problems noted. Mother No problems noted. Social History Social History Housing: House Alcohol intake: current Alcohol intake frequency: 3 or more drinks per day Alcohol type: hard liquor Patient Tobacco Use Status: Current everyday Tobacco user Tobacco use type: Cigarette Cigarettes Per Day: 10 e-Cigarette/Vaping Use: Never Used Second Hand Smoke Exposure: Yes Advance Directives: No Advance Directives Information Provided: Yes Do you have a plan to hurt others: No Plan service: No Current occupational status: disabled Cognitive needs: No Hearing needs: No Vision needs: No Physical Exam ED Vital Signs: Vital Signs - 24 hr 11/05/24 16:18 11/05/24 23:26 Temperature 98.2 F 98.2 F Pulse Rate 60 60 Respiratory Rate 18 18 Blood Pressure 123/67 123/67 Pulse Oximetry 100 100 Oxygen Delivery Method Room Air Room Air BMI result Body Mass Index 26.0 Const General: healthy appearing, comfortable, no acute distress, alert and awake Nutritional Appearance: well nourished Orientation/consciousness: patient oriented x3 HENMT Head: Yes normocephalic and Yes atraumatic Eyes Eyelids: Yes eyelids normal Conjunctivae: conjunctivae normal Sclerae: sclerae normal Corneas: corneas normal Pupils: Equal, round and reactive pupils present EOM: EOMs intact bilaterally Neck Neck: Yes full ROM Resp Effort & Inspection: normal respiratory effort, able to speak in complete sentences and not labored Skin Other: Patient has mild onychomycosis to the left great toe. There is darkening of the toenail starting from the base of the toenail just distal to the nail plate extending up to about [address] the toe. There was no active bleeding obvious around the toe. There is a small 1 x 2 cm area of ecchymosis to the tip of the left great toe no wounds or edema. Gross sensation is intact and capillary refill under 2 seconds General skin exam: elasticity normal Neuro General: patient oriented x3 Cranial nerves: Yes Equal, round and reactive pupils present and Yes Bilaterally intact EOM present Cognition (Neuro): normal cognition Extrem Other: Moving all extremities well without any obvious deformities Course Course Course Narrative: This is a rapid medical exam performed by Jef Miller NP: Additional HPI, ROS, PE not included below will be deferred to primary provider. Patient is a 59-year-old male with history of DM, HTN, HLD presenting with atraumatic brusing to left great toenail 2 weeks ago. Last week he noted blood leaking from under the toenail. He then soaked it in warm water and states the toe itself is now turning purple. Plan: labs, xray Medical Decision Making Medical Decision Making MDM Narrative: 59-year-old male with past medical history as documented above presents for evaluation of discoloration to the left great toe. His exam is most consistent with a subungual hematoma. However it started about 3 weeks ago. He does have some onychomycosis as well. There is no evidence of acute trauma, x-ray shows no evidence of trauma. There was no evidence of bacterial infection. Given that his symptoms started 3 weeks ago I do not feel there is any benefit from nail trephination. The patient has no pain. Plan for watchful waiting and keeping the area clean and dry. Differential Diagnosis Differential Diagnoses: The differential diagnosis associated with the presentation includes Subungual hematoma Onychomycosis Contusion Nail pain Cellulitis Paronychia Osteomyelitis Lab Data MDM Lab Attestation statement: I reviewed the patient's lab results. No leukocytosis. The patient does have a chronic normocytic anemia consistent with his baseline. He has a very mild elevation of ESR. No significant electrolyte abnormalities. The patient is a known diabetic in his random glucose is 130. He does appear to have well-controlled diabetes 11/05/24 16:49 11/05/24 16:49 Labs: Lab Results 11/05/24 Range/Units 16:49 WBC 6.0 (4.8-10.8) X10*3/uL RBC 3.48 L (4.60-5.80) X10*6/uL Hgb 12.3 L D (14.0-18.0) g/dl Hct 33.0 L (42.0-52.0) % MCV 94.8 (80.0-98.0) fL MCH 35.3 H (27.0-33.0) pg MCHC 37.3 H (31.0-36.0) g/dl RDW 12.3 (11.0-16.0) % Plt Count 170 (160-400) X10*3/uL MPV 9.3 L (9.4-12.4) fL Immature Gran % (Auto) 0.3 (0.0-0.4) % Neut % (Auto) 62.9 (45-73) % Lymph % (Auto) 25.6 (20-40) % [place] % (Auto) 9.2 (2-11) % Eos % (Auto) 1.2 (0-4) % Baso % (Auto) 0.8 (0-2) % Lymph # (Auto) 1.5 (1.2-4.9) X10*3/uL [place] # (Auto) 0.6 (0.1-1.2) X10*3/uL Eos # (Auto) 0.1 (0.0-0.4) X10*3/uL Baso # (Auto) 0.1 (0.0-0.2) X10*3/uL Abs Immat Gran (auto) 0.02 (0.00-0.03) X10*3/uL Absolute Neuts (auto) 3.8 (2.0-8.3) x10*3/uL Absolute Nucleated RBC 0.000 (0.0-0.012) X10*3/uL Nucleated RBC % (auto) 0.0 (0.0-0.2) /100WBC ESR 28 H (0-15) MM/HR PT 10.7 L (10.9-12.4) SEC INR 0.9 (0.9-1.1) Sodium 135 (135-145) mmol/L Potassium 4.1 (3.3-5.1) mmol/L Chloride 100 (96-108) mmol/L Carbon Dioxide 26 (22-29) mmol/L Anion Gap 13 (12-20) BUN 11 (9-16) mg/dL Creatinine 1.13 (0.5-1.4) mg/dL Estim Creat Clear Calc 61.9 Estimated GFR > 60 Random Glucose 130 H (60-115) mg/dL Calcium 9.3 D (8.4-10.2) mg/dL Total Bilirubin 0.5 (0.0-1.0) mg/dL AST 64 H (5-37) U/L ALT 33 (0-40) U/L Alkaline Phosphatase 71 (39-117) U/L C-Reactive Protein 0.12 (< or = 0.50) mg/dL Total Protein 7.4 (6.5-8.0) g/dL Albumin 3.7 (3.5-5.0) g/dL Radiology Impression Discussion of test interpretation with radiology: I have reviewed the radiologist's reading. Radiologist Impression: Findings: No acute fracture. No dislocation. Pes planus is present. No acute fracture. No dislocation. No evidence of osteomyelitis. No significant arthritic change or erosions. No ankle effusion. No radiopaque foreign body. There are vascular calcifications. IMPRESSION: No acute bony abnormality. This document has been electronically signed by: Elis Quezada MD on 11/05/2024 17:10:19 Discharge Plan Discharge Clinical Impression: Subungual hematoma of great toe Patient Disposition: Home, Self-Care Instructions: Foot Care for People with Diabetes (ED) Additional Instructions: Your toe appears to have some bleeding underneath the toenail. However there is no danger with this. Keep the area clean and dry. There are no signs of infection or blood flow compromise It is possible that you lose the toenail, if this happens it will grow back Follow-up with your primary doctor, return for new or worsening symptoms Prescriptions: No Action insulin asp prt-insulin aspart 100 unit/mL (70-30) solution 30 unit subcut BID Qty: 10 8RF (DME) Accu-Chek Erika Plus test strp Strip See Rx Instructions .ROUTE .MEDSUPPLY Qty: 10 8RF Rx Instructions: To check blood sugars twice a day Humalog Mix 75-25(U-100)Insuln 100 unit/mL (75-25) suspension 35 unit subcut BID Qty: 10 8RF pravastatin 80 mg tablet 80 mg PO DAILY Qty: 90 8RF insulin syringe-needle U-100 [BD Veo Insulin Syringe UF] 1/2 mL 31 gauge x 15/64 syringe 0.5 ml miscellaneous BID Qty: 200 8RF hydrochlorothiazide 25 mg tablet 25 mg PO DAILY Qty: 14 0RF hydroxyzine HCl 25 mg tablet 25 mg PO TID PRN (Reason: itching) Qty: 30 0RF doxycycline hyclate 100 mg tablet 100 mg PO BID Qty: 20 0RF erythromycin 5 mg/gram (0.5 %) ointment 0.5 inch ophthalmic (eye) TID Qty: 3.5 0RF atenolol 25 mg tablet 25 mg PO DAILY diphenhydramine HCl [Benadryl Allergy] 25 mg tablet 25 mg PO BEDTIME PRN omeprazole 20 mg capsule,delayed release(DR/EC) 20 mg PO DAILY Interventions: ED Discharge Assessment Last Done: 11/05/24 23:26 Discharge Date/Time: 11/05/24 23:53 Print Language: Romanian
[2024-11-05 16:53] LABS: MANUAL DIFF FLAG NO
[2024-11-05 16:59] LABS: Basophils Absolute Auto 0.1 X10*3/uL (0.0-0.2); Basophils Percent Auto 0.8 % (0-2); Eosinophils Absolute Auto 0.1 X10*3/uL (0.0-0.4); Eosinophils Percent Auto 1.2 % (0-4); Hemoglobin 12.3 g/dl (14.0-18.0); Imm Gran Abs Auto 0.02 X10*3/uL (0.00-0.03); Imm Gran Pct Auto 0.3 % (0.0-0.4); Lymphocytes Absolute Auto 1.5 X10*3/uL (1.2-4.9); Lymphocytes Percent Auto 25.6 % (20-40); Mean Corpuscular HGB Conc 37.3 g/dl (31.0-36.0); Mean Corpuscular Hemoglobin 35.3 pg (27.0-33.0); Mean Corpuscular Volume 94.8 fL (80.0-98.0); Mean Platelet Volume 9.3 fL (9.4-12.4); Monocytes Absolute Auto 0.6 X10*3/uL (0.1-1.2); Monocytes Percent Auto 9.2 % (2-11); Neutrophils Absolute Auto 3.8 x10*3/uL (2.0-8.3); Neutrophils Percent Auto 62.9 % (45-73); Platelet Count 170 X10*3/uL (160-400); Red Blood Count 3.48 X10*6/uL (4.60-5.80); Red Cell Distribution Width 12.3 % (11.0-16.0)
[2024-11-05 17:09] LABS: Alanine Aminotransferase 33 U/L (0-40); Albumin Level 3.7 g/dL (3.5-5.0); Alkaline Phosphatase 71 U/L (39-117); Anion Gap 13 (12-20); Aspartate Amino Transferase 64 U/L (5-37); Bilirubin Total 0.5 mg/dL (0.0-1.0); Blood Urea Nitrogen 11 mg/dL (9-16); C Reactive Protein 0.12 mg/dL (< or = 0.50); Calcium 9.3 mg/dL (8.4-10.2); Carbon Dioxide 26 mmol/L (22-29); Chloride 100 mmol/L (96-108); Creatinine Clr Calc Pharmacy 61.9; Estimated Glomerular Filt Rate > 60; Glucose Random 130 mg/dL (60-115); Potassium 4.1 mmol/L (3.3-5.1); Sodium 135 mmol/L (135-145); Total Protein 7.4 g/dL (6.5-8.0)
[2024-11-05 17:13] LABS: INTERNATIONAL NORM RATIO 0.9 (0.9-1.1); Prothrombin Time 10.7 SEC (10.9-12.4)
[2024-11-05 17:51] LABS: Erythrocyte Sedimentation Rate 28 MM/HR (0-15)
[2024-11-05 23:26] VITALS: BP 123/67; PULSE 60; RESP 18; TEMP 36.8; O2SAT 100
== END 2024-11-05 23:53 | disposition home or self-care (01) ==
PROVIDERS: Registered Nurse Emergency; Emergency Provider Emergency Medicine Emergency Medical Services; PCP Internal Medicine
DX: S90.112A Contusion of left great toe without damage to nail, initial encounter (principal); M79.672 Pain in left foot; E11.9 Type 2 diabetes mellitus without complications; X58.XXXA Exposure to other specified factors, initial encounter; Y93.9 Activity, unspecified; Y92.9 Unspecified place or not applicable; Y99.8 Other external cause status; Z79.4 Long term (current) use of insulin; Z79.899 Other long term (current) drug therapy
CPT/HCPCS: 36415; 73630; 80053; 85025; 85610; 85652; 86140; 99283

== ENCOUNTER → 2024-11-05 16:24 | Outpatient (BNV) | payer OTHER, SELFPAY | PROVIDERS: PCP Internal Medicine; Visit Provider Radiology Diagnostic Radiology | DX: I70.292 Other atherosclerosis of native arteries of extremities, left leg (principal) | CPT/HCPCS: 73630 ==

== ENCOUNTER 2024-11-09 08:22 | Outpatient (REF) | payer OTHER, SELFPAY ==
[2024-11-09 08:42] LABS: MANUAL DIFF FLAG NO
[2024-11-09 09:08] LABS: Basophils Percent Auto 0.8 % (0-2); Eosinophils Absolute Auto 0.1 X10*3/uL (0.0-0.4); Eosinophils Percent Auto 1.1 % (0-4); Hematocrit 36.6 % (42.0-52.0); Hemoglobin 13.1 g/dl (14.0-18.0); Imm Gran Abs Auto 0.01 X10*3/uL (0.00-0.03); Imm Gran Pct Auto 0.2 % (0.0-0.4); Lymphocytes Absolute Auto 0.9 X10*3/uL (1.2-4.9); Lymphocytes Percent Auto 16.6 % (20-40); Mean Corpuscular HGB Conc 35.8 g/dl (31.0-36.0); Mean Corpuscular Hemoglobin 34.5 pg (27.0-33.0); Mean Corpuscular Volume 96.3 fL (80.0-98.0); Mean Platelet Volume 9.7 fL (9.4-12.4); Monocytes Absolute Auto 0.6 X10*3/uL (0.1-1.2); Monocytes Percent Auto 11.7 % (2-11); Neutrophils Absolute Auto 3.7 x10*3/uL (2.0-8.3); Neutrophils Percent Auto 69.6 % (45-73); Platelet Count 206 X10*3/uL (160-400); White Blood Count 5.3 X10*3/uL (4.8-10.8)
[2024-11-09 09:17] LABS: Estimated Average Glucose 174 mg/dL; Hemoglobin A1C 210.8973 umol/L; Hemoglobin A1c % 7.7 % (<6.0); Total Hemoglobin (HGBA1C) 3468.3229 umol/L
[2024-11-09 09:40] LABS: Alanine Aminotransferase 34 U/L (0-40); Alkaline Phosphatase 76 U/L (39-117); Anion Gap 12 (12-20); Aspartate Amino Transferase 71 U/L (5-37); Bilirubin Total 0.8 mg/dL (0.0-1.0); Blood Urea Nitrogen 16 mg/dL (9-16); Calcium 9.7 mg/dL (8.4-10.2); Carbon Dioxide 27 mmol/L (22-29); Chloride 100 mmol/L (96-108); Cholesterol 148 mg/dL (<200); Estimated Glomerular Filt Rate 53; Glucose Fasting 182 mg/dL (60-99); HDL Cholesterol 88 mg/dL (>40); LDL Cholesterol Calculated 48 mg/dL (<100); Potassium 4.8 mmol/L (3.3-5.1); Sodium 134 mmol/L (135-145); Triglycerides 63 mg/dL (<150)
[2024-11-09 09:56] LABS: Thyroid Stimulating Hormone 1.37 uIU/mL (0.32-4.0)
== END 2024-11-09 08:23 | disposition home or self-care (01) ==
LOC: HO.LAB 08:22
PROVIDERS: PCP Internal Medicine; Visit Provider Internal Medicine
DX: Z13.0 Encounter for screening for diseases of the blood and blood-forming organs and certain disorders involving the immune mechanism (principal); R73.9 Hyperglycemia, unspecified; Z13.220 Encounter for screening for lipoid disorders; Z13.29 Encounter for screening for other suspected endocrine disorder
CPT/HCPCS: 36415; 80053; 80061; 83036; 84443; 85025

== ENCOUNTER 2024-11-16 10:47 | Outpatient (AMB) | payer OTHER, SELFPAY ==
[2024-11-16 10:52] VITALS: BP 122/80; PULSE 61; TEMP 36.1; O2SAT 99; BMI 26.0
--- NOTE | 2024-11-16 10:52 | MHC.PC.OV ---
Vital Signs 11/16/24 10:52 Height 5 ft 6 in Weight 161 lb BMI 26.0 BP 122/80 Blood Pressure Location Lt brachial Position Sitting Pulse 61 Pulse Source Pulse Oximeter Temp 96.9 F Temp Source Temporal Artery Scan Pulse Oximetry (%) 99 Oxygen Delivery Method Room Air Intake Visit Reasons: ANNUAL - see comments Corporate Safety Coordinator Required: No Accompanied by: Self / Same As Patient Allergies aspirin [ASPIRIN] Allergy (Unknown, Verified 11/05/24 16:24) HIVES Tobacco use date assessed: 11/11/23 Dental Screening Dental Screen Date: 11/11/23 HPI ANNUAL - see comments HPI Details HTN and DM; compliant with meds [facility] Medical History Hyperlipidemia Diabetes HTN (hypertension) Surgical History History of bunionectomy Family History Father No problems noted. Mother No problems noted. Social History Housing: House Alcohol intake: current Alcohol intake frequency: 3 or more drinks per day Alcohol type: hard liquor Patient Tobacco Use Status: Current everyday Tobacco user Tobacco use type: Cigarette Cigarettes Per Day: 10 e-Cigarette/Vaping Use: Never Used Second Hand Smoke Exposure: Yes service: No Current occupational status: disabled Cognitive needs: No Hearing needs: No Vision needs: No Questionnaire PHQ-9 Over the last 2 weeks, how often have you been bothered by any of the following problems? 1. Little interest or pleasure in doing things: not at all 2. Feeling down, depressed, or hopeless: not at all 3. Trouble falling or staying asleep, or sleeping too much: not at all 4. Feeling tired or having little energy: not at all 5. Poor appetite or overeating: not at all 6. Feeling bad about yourself - or that you are a failure or have let yourself or your family down: not at all 7. Trouble concentrating on things, such as reading the newspaper or watching television: not at all 8. Moving or speaking so slowly that other people could have noticed. Or the opposite - being so fidgety or restless that you have been moving around a lot more than usual: not at all 9. Thoughts that you would be better off or of hurting yourself in some way: not at all Total score: 0 Depression Screening Interpretation: Negative Depression Screening Done: Yes 27606 - PHQ-9 Billing: Yes Source: Developed by Drs. Aime Kearney, Jeanine Hogan, Vicente Vizcarra and colleagues, with an educational leigh ann from [employer]. Thrive Questionnaire Date Thrive assessed: 11/16/24 I am a: Patient What is your living situation today?: I have a steady place to live Within the past 12 months, did the food you bought not last and you didn't have the money to get more?: I choose not to answer this question Within the past 12 months, did you worry whether your food would run out before you got money to buy more?: I choose not to answer this question Do you have trouble paying for medicines?: No Do you have trouble getting transportation to medical appointments?: No Do you have trouble paying your heating and electricity bill?: I choose not to answer this question Do you have trouble taking care of your child, family member or friend?: No Do you have trouble with day-to-day activities such as bathing, preparing meals, shopping, managing finances, etc.?: No Are you currently unemployed and looking for a job?: No Are you interested in more education?: No Please select the resources that you would like help with: None Currently or been in a relationship where the following occur: I choose not to answer THRIVE Score: 0 AUDIT C Alcohol Use Questionnaire (AUDIT-C) 1. How often do you have a drink containing alcohol?: 2-3 times a week 2. How many drinks containing alcohol do you have on a typical day when you are drinking?: 1 or 2 3. How often do you have six or more drinks on one occasion?: Never Total Score: 3 ROLO-7 AMB Questionnaire ROLO-7 Date ROLO - 7 assessed: 11/16/24 Feeling nervous, anxious, or on edge: 0 = Not at all Not being able to stop or control worryin = Not at all Worrying too much about different things: 0 = Not at all Trouble relaxin = Not at all Being so restless that it is hard to sit still: 0 = Not at all Becoming easily annoyed or irritable: 0 = Not at all Feeling afraid as if something awful might happen: 0 = Not at all Total ROLO-7 score (0-4 normal; 5-9 mild; 10-14 moderate; 15-21 severe): 0 Source: Developed by Drs. Aime Kearney, Jeanine Hogan, Vicente Vizcarra and colleagues, with an educational leigh ann from [employer]. ROLO-7 Assessment Billing ROLO-7 Assessment Tool: ROLO-7 Assessment 95401 Review of Systems Const Denies chills, Denies fatigue, Denies headache(s) and Denies weight loss Eyes Denies change in vision, Denies diplopia and Denies eye pain ENT Denies vertigo, Denies dizziness, Denies headache(s) and Denies nasal discharge Card Denies chest pain, Denies rapid heart rate and Denies dyspnea on exertion Resp Denies chest congestion, Denies cough, Denies pain with cough and Denies dyspnea on exertion GI Denies abdominal pain, Denies hematochezia and Denies change in bowel habits Musc Denies myalgias, Denies arthralgias and Denies joint swelling Skin/Breast Denies lesions and Denies unusual bruising Neuro Denies vertigo, Denies dizziness, Denies headache(s) and Denies focal weakness Endo Denies fatigue Physical exam (Primary Care) Vital Signs: Last Vital Signs Temp 96.9 F 11/16/24 10:52 Pulse 61 11/16/24 10:52 BP 122/80 11/16/24 10:52 Pulse Ox 99 11/16/24 10:52 Oxygen Delivery Method Room Air 11/16/24 10:52 BMI result Body Mass Index 26.0 Tobacco/Smoking Status: Tobacco use Status Tobacco use date assessed 11/11/23 11/16/24 10:53 Patient Tobacco Use Status Current everyday Tobacco 11/16/24 10:53 Tobacco use type Cigarette 11/16/24 10:53 e-Cigarette/Vaping Use Never Used 11/16/24 10:53 PHQ-9: PHQ-9 Score PHQ-9: Total score 0 11/16/24 10:53 Depression Screening Interpretation: Negative Thrive Assessment: Date of Thrive Assessment Date Thrive assessed 11/16/24 11/16/24 10:53 Currently or been in a relationship where the following occur: I choose not to answer Const General: cooperative, healthy appearing and no acute distress Orientation/consciousness: oriented to person, oriented to place and oriented to time HENMT Head: Yes normal to inspection, Yes normocephalic and Yes atraumatic Mouth: Normal oral and palatal mucosa present and tongue normal Throat: Yes posterior oropharynx normal and Yes uvula midline Eyes General: appearance normal, both eyes and all related structures Neck Neck: Yes normal visual inspection, Yes full ROM and Yes no lymphadenopathy Thyroid: Thyroid normal Carotids: normal carotid upstroke Chest Chest palpation & inspection: normal inspection of the chest Resp Effort & Inspection: normal respiratory effort and able to speak in complete sentences Auscultation: clear to auscultation bilaterally Cardio Jugular venous distension: no JVD Palpation: normal PMI Rate: regular rate Rhythm: regular rhythm Heart sounds: S1 normal heart sound present and S2 normal heart sound present GI Inspection: Yes normal to inspection Palpation (GI): Soft to palpation and No hepatosplenomegaly present Auscultation: normal bowel sounds General: Yes no CVA tenderness Back/Spine/Pelvis Back: no CVA tenderness Skin General skin exam: no rashes or lesions noted Neuro General: oriented to person, oriented to place and oriented to time Extrem General: Yes normal to inspection and Yes full ROM Coding Level of Care Code Est Pt Level 3 (86650) Diagnoses Diabetes mellitus with coincident hypertension E11.9; I10 Hypertension I10 Additional Codes ROLO-7 Assessment Billing - ROLO-7 Assessment Tool: ROLO-7 Assessment 54928 ([id number]) PHQ-9 - 08121 - PHQ-9 Billing: Yes ([id number]) Assessment & Plan Assessment & Plan (1) Diabetes mellitus with coincident hypertension: Code(s): E11.9 - Type 2 diabetes mellitus without complications; I10 - Essential (primary) hypertension Category: Medical Plan: A1C improved but needs to improve diet (2) Hypertension: Code(s): I10 - Essential (primary) hypertension Category: Medical Plan: stable; same rx
== END 2024-11-16 11:04 | disposition home or self-care (01) ==
PROVIDERS: PCP Internal Medicine; Visit Provider Internal Medicine
DX: E11.9 Type 2 diabetes mellitus without complications (principal); I10 Essential (primary) hypertension

== ENCOUNTER → 2024-11-16 10:47 | Outpatient (BNVA) | payer OTHER, SELFPAY | PROVIDERS: PCP Internal Medicine; Visit Provider Internal Medicine | DX: E11.9 Type 2 diabetes mellitus without complications (principal); I10 Essential (primary) hypertension | CPT/HCPCS: 96127 ==

== ENCOUNTER 2025-01-12 17:10 | Emergency (ER) | payer OTHER, SELFPAY ==
--- NOTE | ~2025-01-12 | XR_ITS ---
CLINICAL HISTORY: SOB 2 view chest x-ray Comparison: None Findings: Normal size heart. No consolidation, pleural effusion or pneumothorax. No acute fracture. IMPRESSION: 1. No acute findings. This document has been electronically signed by: Taryn Perkins MD on 01/12/2025 18:39:27
[2025-01-12 17:36] VITALS: BP 137/74; PULSE 62; RESP 18; TEMP 36.5; O2SAT 100; BMI 25.8
--- NOTE | 2025-01-12 17:39 | ED.GENADULT ---
HPI - General Adult General Chief complaint: Skin/Abscess/Foreign Body Stated complaint: sob, cyst on back Time Seen by Provider: 01/12/25 21:30 Source: patient Mode of arrival: ambulatory Limitations: no limitations History of Present Illness ED Provider: HPI narrative: Patient's got keloid in the upper back for a while getting worse now patient is diabetic, alcoholic noticed increased pain in the keloid area along with difficulty in breathing on ambulation no chest pain no palpitation no history of CHF Related Data Home Medications ?Medication ?Instructions ?Recorded ?Confirmed diphenhydramine HCl 25 mg tablet 25 mg PO BEDTIME PRN 11/22/21 06/08/24 (Benadryl Allergy) omeprazole 20 mg capsule,delayed 20 mg PO DAILY 11/22/21 06/08/24 release Previous Rx's ?Medication ?Instructions ?Recorded hydrochlorothiazide 25 mg tablet 25 mg PO DAILY #14 tabs 11/22/21 erythromycin 5 mg/gram (0.5 %) eye 0.5 inch ophthalmic (eye) TID #3.5 01/23/23 ointment grams insulin lispro protamine-lispro 35 unit (0.35 mL) subcut BID #10 mL 05/05/24 100 unit/mL (75-25) subcutaneous susp (Humalog Mix 75-25(U-100)Insuln) pravastatin 80 mg tablet 80 mg PO DAILY #90 tabs 07/07/24 insulin syringe-needle U-100 1/2 0.5 ml miscellaneous BID #200 ea 07/08/24 mL 31 gauge x 15/64 (BD Veo Insulin Syringe Ultra-Fine) doxycycline hyclate 100 mg tablet 100 mg PO BID #20 tabs 09/17/24 hydroxyzine HCl 25 mg tablet 25 mg PO TID PRN itching #30 tabs 09/17/24 blood sugar diagnostic (Accu-Chek #100 strips 11/22/24 Erika Plus test strips) atenolol 25 mg tablet 25 mg PO DAILY #90 tabs 12/13/24 insulin aspar prt-insulin aspart 30 unit (0.3 mL) subcut BID #10 mL 12/27/24 100 unit/mL (70-30) subcutaneous soln Allergies Allergy/AdvReac Type Severity Reaction Status Date / Time aspirin [ASPIRIN] Allergy Unknown HIVES Verified 01/12/25 17:40 Review of Systems Review of Systems: Yes all other systems are reviewed and are negative [facility] Past Medical History Medical History Hyperlipidemia Diabetes HTN (hypertension) Surgical History History of bunionectomy Family History Family History Father No problems noted. Mother No problems noted. Social History Social History Housing: House Alcohol intake: current Alcohol intake frequency: 3 or more drinks per day Alcohol type: hard liquor Patient Tobacco Use Status: Current everyday Tobacco user Tobacco use type: Cigarette Cigarettes Per Day: 10 e-Cigarette/Vaping Use: Never Used Second Hand Smoke Exposure: Yes Advance Directives: No Advance Directives Information Provided: Yes service: No Current occupational status: disabled Cognitive needs: No Hearing needs: No Vision needs: No Physical Exam ED Vital Signs: Vital Signs - 24 hr 01/12/25 21:11 01/12/25 21:13 01/12/25 21:32 Temperature 98.0 F 98.4 F 98.3 F Pulse Rate 56 69 55 Respiratory Rate 16 11 L 16 Blood Pressure 106/48 L 81/48 L 100/58 L Pulse Oximetry 100 97 100 Oxygen Delivery Method Room Air Nasal Cannula Room Air Oxygen Flow Rate 2 01/12/25 22:25 Temperature 98.3 F Pulse Rate 55 Respiratory Rate 16 Blood Pressure 100/58 L Pulse Oximetry 100 Oxygen Delivery Method Room Air Oxygen Flow Rate BMI result Body Mass Index 25.8 Appearance: Alert. Oriented X3. No acute distress. etoh Eyes: PERRLA, No Nystagmus ENT: Pharynx normal. Oral Mucosa moist Neck: Normal inspection. Neck supple. CVS: Normal heart rate and rhythm. Pulses normal. Respiratory: No respiratory distress. Equal air entry bilateral, no wheezing/rales/rhonchi Abdomen: Soft and nontender. Bowel sounds are present, no mass palpable, no CVA tenderness Skin: Skin warm and dry. Normal skin color. Normal skin turgor. Small keloid at the back no surrounding signs of infection Extremities: No lower extremity edema. No calf tenderness Neuro: Oriented X 3. No motor deficit. No sensory deficit.No cerebellar signs , cranial nerves II-XII intact Course Course Course Narrative: This is an RME: Additional HPI, ROS, PE not included below will be deferred to primary provider. RME assessment and note performed by: Arlette Jackson PA-C This is a 51-mvky-net-male, insulin dependent diabets, HLD, htn, who presents to the ER with complaints of shortness of breath, dizziness, back pain. Patient reports that he has a skin nodule on his back that is causing him to have pain. He states that he was a daily drinker, no history of alcohol withdrawal, drinks several margaritas a day. Last drink just before arrival. Patient reporting that he was feeling short of breath however patient appears to be anxious, vital signs within normal limits. He is speaking in full sentences. No hx of IVDA Plan: Labs, EKG, chest x-ray, further ER evaluation needed. Medical Decision Making Medical Decision Making [facility] Narrative: Patient has small actinic keloid in the upper back which was removed using tweezers no signs of infection no signs of deeper lesions chest x-ray negative labs are stable patient advised to follow up with PCP for further evaluation no signs of CHF at this time patient advised to stop alcohol use Lab Data [facility] Lab Attestation statement: I reviewed the patient's lab results. 01/12/25 18:05 01/12/25 18:05 Labs: Lab Results 01/12/25 Range/Units 18:05 WBC 5.8 (4.8-10.8) X10*3/uL RBC 3.49 L (4.60-5.80) X10*6/uL Hgb 12.2 L (14.0-18.0) g/dl Hct 32.5 L (42.0-52.0) % MCV 93.1 (80.0-98.0) fL MCH 35.0 H (27.0-33.0) pg MCHC 37.5 H (31.0-36.0) g/dl RDW 12.8 (11.0-16.0) % Plt Count 180 (160-400) X10*3/uL MPV 9.3 L (9.4-12.4) fL Immature Gran % (Auto) 0.3 (0.0-0.4) % Neut % (Auto) 60.8 (45-73) % Lymph % (Auto) 27.5 (20-40) % [place] % (Auto) 9.0 (2-11) % Eos % (Auto) 1.4 (0-4) % Baso % (Auto) 1.0 (0-2) % Lymph # (Auto) 1.6 (1.2-4.9) X10*3/uL [place] # (Auto) 0.5 (0.1-1.2) X10*3/uL Eos # (Auto) 0.1 (0.0-0.4) X10*3/uL Baso # (Auto) 0.1 (0.0-0.2) X10*3/uL Abs Immat Gran (auto) 0.02 (0.00-0.03) X10*3/uL Absolute Neuts (auto) 3.5 (2.0-8.3) x10*3/uL Absolute Nucleated RBC 0.000 (0.0-0.012) X10*3/uL Nucleated RBC % (auto) 0.0 (0.0-0.2) /100WBC Sodium 130 L (135-145) mmol/L Potassium 4.6 (3.3-5.1) mmol/L Chloride 100 (96-108) mmol/L Carbon Dioxide 21 L (22-29) mmol/L Anion Gap 14 (12-20) BUN 13 (9-16) mg/dL Creatinine 1.16 (0.5-1.4) mg/dL Estim Creat Clear Calc 60.3 Estimated GFR > 60 Random Glucose 98 (60-115) mg/dL Calcium 9.4 (8.4-10.2) mg/dL Magnesium 1.9 (1.6-2.6) mg/dL Total Bilirubin 0.5 (0.0-1.0) mg/dL Direct Bilirubin 0.2 (0.0-0.5) mg/dL AST 64 H (5-37) U/L ALT 28 (0-40) U/L Alkaline Phosphatase 75 (39-117) U/L Troponin I High Sens 5.5 (<3.5-35.0) ng/L Total Protein 7.5 (6.5-8.0) g/dL Albumin 3.8 (3.5-5.0) g/dL Ethyl Alcohol 222 mg/dL Independent Interpretation I performed an independent interpretation of an: EKG Interpretation: Sinus bradycardia with heart rate 53 beats per minute nonspecific STT wave changes no acute ischemia Radiology Impression Discussion of test interpretation with radiology: I have reviewed the radiologist's reading. Radiologist Impression: No acute finding Discharge Plan Discharge Clinical Impression: Acne keloidalis, Alcohol abuse Patient Disposition: Home, Self-Care Instructions: Abuse of Alcohol (DC) Additional Instructions: Local care of the wound from where keloid was removed Follow up with the PCP if further workup Stop drinking alcohol Prescriptions: No Action Humalog Mix 75-25(U-100)Insuln 100 unit/mL (75-25) suspension 35 unit subcut BID Qty: 10 8RF pravastatin 80 mg tablet 80 mg PO DAILY Qty: 90 8RF insulin syringe-needle U-100 [BD Veo Insulin Syringe UF] 1/2 mL 31 gauge x 15/64 syringe 0.5 ml miscellaneous BID Qty: 200 8RF (DME) Accu-Chek Erika Plus test strp Strip See Rx Instructions .ROUTE .COMPLEX Qty: 100 0RF Dose Instruction: USE TO CHECK BLOOD SUGAR TWICE DAILY Rx Instructions: USE TO CHECK BLOOD SUGAR TWICE DAILY atenolol 25 mg tablet 25 mg PO DAILY Qty: 90 0RF insulin asp prt-insulin aspart 100 unit/mL (70-30) solution 30 unit subcut BID Qty: 10 0RF hydrochlorothiazide 25 mg tablet 25 mg PO DAILY Qty: 14 0RF hydroxyzine HCl 25 mg tablet 25 mg PO TID PRN (Reason: itching) Qty: 30 0RF doxycycline hyclate 100 mg tablet 100 mg PO BID Qty: 20 0RF erythromycin 5 mg/gram (0.5 %) ointment 0.5 inch ophthalmic (eye) TID Qty: 3.5 0RF diphenhydramine HCl [Benadryl Allergy] 25 mg tablet 25 mg PO BEDTIME PRN omeprazole 20 mg capsule,delayed release(DR/EC) 20 mg PO DAILY Interventions: ED Discharge Assessment Last Done: 01/12/25 22:25 Discharge Date/Time: 01/12/25 22:27 Print Language: Panamanian
--- NOTE | 2025-01-12 17:42 | ECG_ITS ---
Test Reason : CP Blood Pressure : */* mmHG Vent. Rate : 180 BPM Atrial Rate : 300 BPM P-R Int : * ms QRS Dur : 106 ms QT Int : 308 ms P-R-T Axes : * 98 261 degrees QTcB Int : 533 ms Undetermined rhythm Anterolateral infarct , possibly acute Marked T wave abnormality, consider inferior ischemia ACUTE LA / STEMI Abnormal ECG When compared with ECG of 09-Oct-2023 21:42, Current undetermined rhythm precludes rhythm comparison, needs review Questionable change in QRS duration Anterior infarct is now Present Anterolateral infarct is now Present Referred By: Arlette Davis Electronically Signed By:
[2025-01-12 18:11] LABS: MANUAL DIFF FLAG NO
[2025-01-12 18:14] LABS: Basophils Absolute Auto 0.1 X10*3/uL (0.0-0.2); Eosinophils Absolute Auto 0.1 X10*3/uL (0.0-0.4); Eosinophils Percent Auto 1.4 % (0-4); Hematocrit 32.5 % (42.0-52.0); Hemoglobin 12.2 g/dl (14.0-18.0); Imm Gran Abs Auto 0.02 X10*3/uL (0.00-0.03); Imm Gran Pct Auto 0.3 % (0.0-0.4); Lymphocytes Absolute Auto 1.6 X10*3/uL (1.2-4.9); Lymphocytes Percent Auto 27.5 % (20-40); Mean Corpuscular HGB Conc 37.5 g/dl (31.0-36.0); Mean Corpuscular Volume 93.1 fL (80.0-98.0); Mean Platelet Volume 9.3 fL (9.4-12.4); Monocytes Absolute Auto 0.5 X10*3/uL (0.1-1.2); Neutrophils Absolute Auto 3.5 x10*3/uL (2.0-8.3); Neutrophils Percent Auto 60.8 % (45-73); Platelet Count 180 X10*3/uL (160-400); Red Blood Count 3.49 X10*6/uL (4.60-5.80); Red Cell Distribution Width 12.8 % (11.0-16.0); White Blood Count 5.8 X10*3/uL (4.8-10.8)
[2025-01-12 18:26] LABS: Alanine Aminotransferase 28 U/L (0-40); Albumin Level 3.8 g/dL (3.5-5.0); Alkaline Phosphatase 75 U/L (39-117); Anion Gap 14 (12-20); Aspartate Amino Transferase 64 U/L (5-37); Bilirubin Direct 0.2 mg/dL (0.0-0.5); Bilirubin Total 0.5 mg/dL (0.0-1.0); Blood Urea Nitrogen 13 mg/dL (9-16); Calcium 9.4 mg/dL (8.4-10.2); Carbon Dioxide 21 mmol/L (22-29); Chloride 100 mmol/L (96-108); Creatinine Clr Calc Pharmacy 60.3; Estimated Glomerular Filt Rate > 60; Ethanol 222 mg/dL; Glucose Random 98 mg/dL (60-115); Magnesium 1.9 mg/dL (1.6-2.6); Potassium 4.6 mmol/L (3.3-5.1); Sodium 130 mmol/L (135-145); Total Protein 7.5 g/dL (6.5-8.0)
[2025-01-12 18:33] LABS: Troponin-I High Sensitivity 5.5 ng/L (<3.5-35.0)
[2025-01-12 21:11] VITALS: BP 106/48; PULSE 56; RESP 16; TEMP 36.7; O2SAT 100
[2025-01-12 21:13] VITALS: BP 81/48; PULSE 69; RESP 11; TEMP 36.9; O2SAT 97
--- NOTE | 2025-01-12 21:28 | PC.NURSE ---
Patient comes from home. Patient had a cyst removed from back 8 years ago. Small cyst noted to back impacting his breathing. Also c/o dizziness and pain to the area. Lungs clear bilat. Respirations even and non-labored. Abdomen soft, non-tender with positive bowel sounds. No LE edema. Multiple scabbed area noted to bilat UE
--- NOTE | 2025-01-12 21:31 | PC.NURSE ---
Walked back patient from , patient refused to change in [facility].
[2025-01-12 21:32] VITALS: BP 100/58; PULSE 55; RESP 16; TEMP 36.8; O2SAT 100
--- NOTE | 2025-01-12 21:59 | ECG_ITS ---
Test Reason : SOB Blood Pressure : */* mmHG Vent. Rate : 53 BPM Atrial Rate : 53 BPM P-R Int : 154 ms QRS Dur : 86 ms QT Int : 462 ms P-R-T Axes : 56 4 62 degrees QTcB Int : 433 ms Sinus bradycardia Otherwise normal ECG When compared with ECG of 12-Jan-2025 17:56, No significant changes seen Referred By: Jamey Sanchez Electronically Signed By: RAMONA CROWELL
[2025-01-12 22:25] VITALS: BP 100/58; PULSE 55; RESP 16; TEMP 36.8; O2SAT 100
== END 2025-01-12 22:27 | disposition home or self-care (01) ==
PROVIDERS: Physician Assistant Medical; Emergency Provider Internal Medicine
DX: L73.0 Acne keloid (principal); F10.10 Alcohol abuse, uncomplicated; E11.9 Type 2 diabetes mellitus without complications; R06.02 Shortness of breath; R00.1 Bradycardia, unspecified; Y90.7 Blood alcohol level of 200-239 mg/100 ml; Z51.81 Encounter for therapeutic drug level monitoring; Z79.4 Long term (current) use of insulin; Z79.899 Other long term (current) drug therapy
CPT/HCPCS: 36415; 71046; 80048; 80076; 80307; 83735; 84484; 85025; 93005; 99283; 99284

== ENCOUNTER → 2025-01-12 17:43 | Outpatient (BNV) | payer OTHER, SELFPAY | PROVIDERS: Visit Provider Specialist | DX: R06.02 Shortness of breath (principal) | CPT/HCPCS: 71046 ==

== ENCOUNTER → 2025-01-12 21:59 | Outpatient (BNV) | payer OTHER, SELFPAY | PROVIDERS: Emergency Provider Internal Medicine; Visit Provider Internal Medicine | DX: R00.1 Bradycardia, unspecified (principal) | CPT/HCPCS: 93010 ==

== ENCOUNTER 2025-03-16 10:46 | Outpatient (AMB) | payer OTHER, SELFPAY ==
[2025-03-16 10:52] VITALS: BP 142/68; PULSE 60; RESP 16; TEMP 36.5; O2SAT 99; BMI 25.5
--- NOTE | 2025-03-16 10:52 | A.OFFPC_ITS ---
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 Accompanied by: Self / Same As Patient Allergies aspirin [ASPIRIN] Allergy (Unknown, Verified 03/16/25 11:18) HIVES Medication List - Last Reconciled 03/16/25 by MADELINE Caballero atenolol 25 mg PO DAILY blood sugar diagnostic (Accu-Chek Erika Plus test strips) USE TO CHECK BLOOD SUGAR TWICE DAILY diphenhydramine HCl (Benadryl Allergy) 25 mg PO BEDTIME PRN insulin asp prt-insulin aspart 100 unit/mL (70-30) 30 units (0.3 mL) subcut BID insulin lispro protamin-lispro 100 unit/mL (75-25) (Humalog Mix 75-25(U-100)Insuln) 35 units (0.35 mL) subcut BID insulin syringe-needle U-100 (BD Veo Insulin Syringe Ultra-Fine) 0.5 mL miscellaneous BID omeprazole 20 mg PO DAILY pravastatin 80 mg PO DAILY Tobacco use date assessed: 03/16/25 Dental Screening Dental Screen Date: 03/16/25 Did you have a dental visit in the last 12 months?: No Did you have a dental problem in the last 6 months where you did not have access to dental care?: No Was dental information given to patient?: No HPI BREANN Mcleod PT 3 month f/u - see comments HPI Details The patient is a 59-year-old male presenting for transitioning of care and 4 month follow on chronic disease conditions. He has a 37-year history of type 1 diabetes mellitus managed with 70-30 insulin 30 units and 75-25 insulin 35 units BID. However, per patient, he is using a sliding scale that he devised himself. He refused going to endocrine because they tried to changed his medication. Reports that he has been doing this forever and has a system down. He has chosen not to prioritize dietary alterations and instead relies on self- monitoring practices for blood glucose management and foot care. Additionally, the patient has a history of hypertension, having experienced severe hypotension which necessitated a reduction in beta nicola dosage. Per patient, he was on atenolol 100mg for years, then passed out once and they found his blood pressure to be severely low; this was decreased to 25 mg and he has been doing fine since. His hemoglobin A1c was noted to be 8.2%, as he continues efforts to lower it through improved diet and exercise. The patient also reports erectile dysfunction unresponsive to various treatments and expresses concerns about low testosterone levels. He has a history of regular alcohol consumption, reports persistent anemia, and recalls severe hypotensive episodes. He is mindful of his sodium intake and hydration state. Explained to the patient that his sodium is low mostly due to his high alcohol intake, and potential the cause of his anemia as well. Reports that he is not interested in changing anything at this time. PENDING SALE TO [facility] Medical History (Updated 03/16/25 @ 12:49 by MADELINE Caballero) Hyperlipidemia Diabetes HTN (hypertension) Surgical History Hx of removal of cyst History of bunionectomy Family History Father No problems noted. Mother No problems noted. Social History Housing: House Alcohol intake: current Alcohol intake frequency: 3 or more drinks per day Alcohol type: hard liquor Patient Tobacco Use Status: Current everyday Tobacco user Tobacco use type: Cigarette Cigarette Packs Per Day: 0.5 Cigarettes Per Day: 10 e-Cigarette/Vaping Use: Never Used Second Hand Smoke Exposure: Yes service: No Current occupational status: disabled Cognitive needs: No Hearing needs: No Vision needs: Yes (Glasses) Questionnaire Thrive Questionnaire Date Thrive assessed: 03/16/25 I am a: Patient What is your living situation today?: I have a steady place to live Within the past 12 months, did the food you bought not last and you didn't have the money to get more?: I choose not to answer this question Within the past 12 months, did you worry whether your food would run out before you got money to buy more?: I choose not to answer this question Do you have trouble paying for medicines?: No Do you have trouble getting transportation to medical appointments?: No Do you have trouble paying your heating and electricity bill?: I choose not to answer this question Do you have trouble taking care of your child, family member or friend?: No Do you have trouble with day-to-day activities such as bathing, preparing meals, shopping, managing finances, etc.?: No Are you currently unemployed and looking for a job?: No Are you interested in more education?: No Please select the resources that you would like help with: None Currently or been in a relationship where the following occur: I choose not to answer THRIVE Score: 0 AUDIT C Alcohol Use Questionnaire (AUDIT-C) 1. How often do you have a drink containing alcohol?: 4 or more times a week 2. How many drinks containing alcohol do you have on a typical day when you are drinking?: 3 or 4 3. How often do you have six or more drinks on one occasion?: Never Total Score: 5 Score Reviewed/Action Taken: Yes ROLO-7 AMB Questionnaire ROLO-7 Date ROLO - 7 assessed: 11/16/24 Source: Developed by Drs. Aime Kearney, Jeanine Hogan, Vicente Vizcarra and colleagues, with an educational leigh ann from [address]. Review of Systems Const Denies headache(s) Eyes Denies loss of vision ENT Denies vertigo, Denies dizziness, Denies headache(s) and Denies sore throat Card Denies chest pain, Denies leg edema and Denies lightheadedness Resp Denies cough, Denies hemoptysis and Denies wheezing GI Denies abdominal pain, Denies melena, Denies constipation, Denies diarrhea and Denies vomiting Denies dysuria, Denies urinary frequency and Denies urinary urgency Musc Denies deformity, Denies numbness and Denies tingling Neuro Denies Abnormal speech present, Denies vertigo, Denies dizziness, Denies headache(s), Denies loss of vision, Denies memory loss, Denies numbness and Denies tingling Psych Denies anxiety, Denies depression, Denies memory loss and Denies panic attacks Isai/Lymph Denies easy bleeding and Denies easy bruising Aller/Immun Denies wheezing Physical exam (Primary Care) Vital Signs: Last Vital Signs Temp 97.7 F 06/04/25 10:52 Pulse 60 03/16/25 10:52 Resp 16 03/16/25 10:52 BP 142/68 H 03/16/25 10:52 Pulse Ox 99 03/16/25 10:52 Oxygen Delivery Method Room Air 03/16/25 10:52 BMI result Body Mass Index 25.5 Tobacco/Smoking Status: Tobacco use Status Tobacco use date assessed 03/16/25 03/16/25 10:55 Patient Tobacco Use Status Current everyday Tobacco 03/16/25 10:55 Tobacco use type Cigarette 03/16/25 10:55 e-Cigarette/Vaping Use Never Used 03/16/25 10:55 Thrive Assessment: Date of Thrive Assessment Date Thrive assessed 03/16/25 03/16/25 10:55 Currently or been in a relationship where the following occur: I choose not to answer Const General: healthy appearing, no acute distress, alert and awake Nutritional Appearance: well nourished Orientation/consciousness: oriented to person, oriented to place and oriented to time HENMT Ears: external ears normal General nose exam: Normal external nose present Eyes Conjunctivae: conjunctivae normal Sclerae: sclerae normal Pupils: Equal, round and reactive pupils present Neck Neck: Yes no lymphadenopathy and Yes no JVD Thyroid: Thyroid normal Carotids: no bruits Resp Effort & Inspection: normal respiratory effort and not tachypneic Auscultation: no crackles, no rales, no rhonchi and no wheezes Cardio Rate: regular rate Rhythm: regular rhythm Heart sounds: no murmurs and normal S1 and S2 GI Palpation (GI): Soft to palpation, nontender, no hepatomegaly and no splenomegaly Auscultation: normal bowel sounds Skin General skin exam: dry skin and erythema (areas to cheeks and bridge of nose) Neuro General: oriented to person, oriented to place and oriented to time Cranial nerves: Yes Equal, round and reactive pupils present Speech: No Abnormal speech present Gait exam (Neuro): Normal gait present Motor exam (neuro): no tremor noted Extrem Right upper extremity: full ROM Left upper extremity: full ROM Right lower extremity: full ROM; no edema Left lower extremity: full ROM; no edema Psych Mental Status: mental status grossly normal Speech and movement: Normal speech and movement present Affect: normal affect Attitude: cooperative Thought process: Normal thought process present Results AMB Hemoglobin A1c AMB Hemoglobin A1c 8.2 % Last Edit by Meghna Jimenez CMA on 03/16/25 11:14 Results Reviewed Results Reviewed: Laboratory Last Values Hgb A1c (Clinic) 8.2 % (4.0-6.0) H 03/16/25 11:12 Laboratory Tests 01/12/25 03/16/25 18:05 11:12 WBC 5.8 RBC 3.49 L Hgb 12.2 L Hct 32.5 L MCV 93.1 MCH 35.0 H MCHC 37.5 H RDW 12.8 Plt Count 180 MPV 9.3 L Immature Gran % (Auto) 0.3 Neut % (Auto) 60.8 Lymph % (Auto) 27.5 Sodium 130 L Potassium 4.6 Chloride 100 Carbon Dioxide 21 L Anion Gap 14 BUN 13 Creatinine 1.16 Estim Creat Clear Calc 60.3 Estimated GFR > 60 Random Glucose 98 Hgb A1c (Clinic) 8.2 H Calcium 9.4 Magnesium 1.9 Total Bilirubin 0.5 Direct Bilirubin 0.2 AST 64 H ALT 28 Alkaline Phosphatase 75 Troponin I High Sens 5.5 Total Protein 7.5 Albumin 3.8 Coding Diagnoses Low libido R68.82 Anemia, unspecified type D64.9 Anemia type: unspecified type Uncontrolled type 1 diabetes mellitus with hyperglycemia E10.65 Glycemic state: with hyperglycemia Single skin nodule R22.9 Hyponatremia E87.1 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 Suspected folate vs b12 deficiency due to alcohol usage. However, will check the patient iron profile as well. (3) Diabetes mellitus type 1, uncontrolled: Code(s): E10.65 - Type 1 diabetes mellitus with hyperglycemia Category: Medical Qualifiers: Glycemic state: with hyperglycemia Qualified Code(s): E10.65 - Type 1 diabetes mellitus with hyperglycemia Plan: a1c 8% goal less than 7%, previous a1c was 7.9% He is currently on insulin asp prt-insulin aspart 100 unit/ml ( 70-30) 30 units bid and insulin lispro protamin-lispro 100 unit/ml (75-25) BID insulin regimen- per patient, he has his own sliding scale that was not ordered by any provider Declines endocrinology referral- (4) Single skin nodule: Comment: 20 min reviewing chart eval patient and documenting Code(s): R22.9 - Localized swelling, mass and lump, unspecified Category: Medical (5) Hyponatremia: Code(s): E87.1 - Hypo-osmolality and hyponatremia Category: Medical (6) 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 - Other rosacea Category: Medical Orders: Orders AMB Hemoglobin A1c Today E11.9 - Type 2 diabetes mellitus without complications, I10 - Essential (primary) hypertension Vitamin B12 and Folate Today D64.9 - Anemia, unspecified, E11.9 - Type 2 diabetes mellitus without complications, I10 - Essential (primary) hypertension, R68.82 - Decreased libido Complete Blood Count Auto Diff Today D64.9 - Anemia, unspecified, E11.9 - Type 2 diabetes mellitus without complications, I10 - Essential (primary) hypertension, R68.82 - Decreased libido Lipid Panel 4 Months D64.9 - Anemia, unspecified, E10.65 - Type 1 diabetes mellitus with hyperglycemia, E11.9 - Type 2 diabetes mellitus without complications, I10 - Essential (primary) hypertension UA CC w/rflx Micro + Cult 4 Months D64.9 - Anemia, unspecified, E10.65 - Type 1 diabetes mellitus with hyperglycemia, E11.9 - Type 2 diabetes mellitus without complications, I10 - Essential (primary) hypertension Hemoglobin A1c 4 Months D64.9 - Anemia, unspecified, E10.65 - Type 1 diabetes mellitus with hyperglycemia, E11.9 - Type 2 diabetes mellitus without complications, I10 - Essential (primary) hypertension Testosterone, Free/Total Today D64.9 - Anemia, unspecified, E11.9 - Type 2 diabetes mellitus without complications, I10 - Essential (primary) hypertension, R68.82 - Decreased libido IRON PROFILE Today D64.9 - Anemia, unspecified, E11.9 - Type 2 diabetes mellitus without complications, I10 - Essential (primary) hypertension, R68.82 - Decreased libido Complete Blood Count Auto Diff 4 Months D64.9 - Anemia, unspecified, E10.65 - Type 1 diabetes mellitus with hyperglycemia, E11.9 - Type 2 diabetes mellitus wi thout complications, I10 - Essential (primary) hypertension TSH reflex Free T4 4 Months D64.9 - Anemia, unspecified, E10.65 - Type 1 diabetes mellitus with hyperglycemia, E11.9 - Type 2 diabetes mellitus without complications, I10 - Essential (primary) hypertension Comprehensive [place]. Panel Fast 4 Months D64.9 - Anemia, unspecified, E10.65 - Type 1 diabetes mellitus with hyperglycemia, E11.9 - Type 2 diabetes mellitus without complications, I10 - Essential (primary) hypertension Vitamin D 25-OH Total 4 Months D64.9 - Anemia, unspecified, E10.65 - Type 1 diabetes mellitus with hyperglycemia, E11.9 - Type 2 diabetes mellitus without complications, I10 - Essential (primary) hypertension Medications: Refilled pravastatin 80 mg PO DAILY 90 tabs 3RF
== END 2025-03-16 11:46 | disposition home or self-care (01) ==
LOC: HO.HMCH 10:47
DX: E11.9 Type 2 diabetes mellitus without complications (principal); I10 Essential (primary) hypertension

== ENCOUNTER → 2025-03-16 10:46 | Outpatient (BNVA) | payer OTHER, SELFPAY | DX: E10.65 Type 1 diabetes mellitus with hyperglycemia (principal); I10 Essential (primary) hypertension; R68.82 Decreased libido; D64.9 Anemia, unspecified; R22.9 Localized swelling, mass and lump, unspecified; E87.1 Hypo-osmolality and hyponatremia; L71.8 Other rosacea; Z79.4 Long term (current) use of insulin | CPT/HCPCS: 83036 ==

== ENCOUNTER 2025-04-18 19:59 | Inpatient (IN) | payer MEDICARE, SELFPAY ==
[2025-04-18] VITALS (7 sets, daily range): BP systolic 108–163; BP diastolic 59–83; PULSE 57–73; RESP 13–20; TEMP 36.7–36.8; O2SAT 98–100; BMI 24.9
--- NOTE | ~2025-04-18 | CT_ITS ---
CLINICAL HISTORY: multiple falls, neck pain CT cervical spine without contrast Comparison: CT/REG/SR - CT CERVICAL SPINE WO IV CON - 10/07/23 20:49 EST Findings: Vertebral alignment is within normal limits. Moderate spondylosis at C6-C7 with disc space narrowing, posterior disc osteophyte complex, osteophytosis and facet arthropathy. No acute fractures or dislocations. Visualized intracranial contents are unremarkable. Soft tissues of the neck are normal. No consolidation or effusion at the lung apices. IMPRESSION: No acute findings. Device independent Moderate spondylosis at C6-C7. This document has been electronically signed by: Clarence Macedo MD on 04/18/2025 21:34:55
--- NOTE | ~2025-04-18 | MR_ITS ---
EXAMINATION: MR BRAIN WITHOUT CONTRAST CLINICAL INFORMATION: MS, known EtOH,? CVA on admission. COMPARISON: No prior MRI. CT and CT angiography head 04/18/2025. TECHNIQUE: MRI of the brain was obtained using routine sequences without contrast. Examination performed on a 1.5 Kat Siemens high-field unit. FINDINGS: There is no diffusion restriction. There is no intracranial hemorrhage, acute infarction, mass effect, or edema. Ventricles, sulci, and cisterns are mildly diffusely prominent, in keeping with mildly age advanced cerebral and cerebellar involutional changes. No shift of midline. No abnormal hemosiderin deposition is identified. There are a few scattered punctate and minimally confluent foci of white matter T2 hyperintensity in the periventricular, subcortical, and hemispheric deep white matter. These foci are nonspecific but statistically most likely relate to small vessel ischemic changes. Midline structures appear normally formed. There is a partial empty sella. Posterior fossa structures appear normal. Cerebellar tonsils are appropriately located. Major flow voids are preserved within the skull base. The globes and orbital contents demonstrate no abnormalities. Mild scattered mucosal thickening in the ethmoid sinuses, and dependent maxillary sinuses bilaterally. Paranasal sinuses otherwise grossly clear. There is trace fluid in the left mastoid tip. The mastoids and tympanic cavities are otherwise normally aerated. Extracranial soft tissues demonstrate no abnormalities. No suspicious bone marrow changes are evident. Mild degenerative changes in the bilateral TM joints. Atlantoaxial joint is normal. MR/MR head/brain wo con IMPRESSION: 1. No evidence of intracranial hemorrhage, acute infarction, mass effect, or edema. 2. Mild changes of small vessel ischemia. 3. Mildly age advanced cerebral and cerebellar involutional changes. 4. Mild paranasal sinus disease. Electronically signed by: Viet Orozco MD 04/19/2025 12:46 PM EDT
--- NOTE | ~2025-04-18 | XR_ITS ---
EXAMINATION: XR SCREENING FILM FOR MR HISTORY: PRE MRI LEFT THIGH R/O FOREIGN BODY COMPARISON: There are no prior studies available for comparison. FINDINGS: AP and lateral views of the left femur demonstrate no radiopaque foreign body in the soft tissues. The femur is intact without evidence of fracture. The visualized hip and knee joints are maintained. There are vascular calcifications. XR/XR pre mri screening IMPRESSION: No radiopaque foreign body is identified. Electronically signed by: Aime Singh MD 04/19/2025 11:31 AM EDT
--- NOTE | ~2025-04-18 | CT_ITS ---
CLINICAL HISTORY: dysarthria CT of the head without contrast. Comparison 10/07/2023. Findings: There is mild atrophy with white matter changes. No acute hemorrhage or infarct is seen. No masses are identified and there is no hydrocephalus. There is no mass-effect. There is minimal sinus disease. Impression: No acute intracranial abnormality is identified. This document has been electronically signed by: Pj Cantu MD on 04/18/2025 20:32:17
--- NOTE | ~2025-04-18 | CT_ITS ---
CLINICAL HISTORY: dysarthria CT angiography head and neck with contrast. 3D Postprocessing. Comparison: CT/SR - CT HEAD FOR STROKE - 04/18/25 20:06 EDT Findings: Aortic arch and cervical great vessels are patent with no aneurysm, dissection, hemodynamically significant stenoses, or occlusion. Atherosclerotic disease causing mild stenosis of the origin of the right vertebral artery. Intracranial arteries are patent. No aneurysm, dissection, hemodynamically significant stenoses, or occlusion. No abnormal intracranial enhancement. The visualized thyroid gland is unremarkable. No cervical mass or fluid collection. Lung apices clear. No acute fracture. IMPRESSION: Patent head and neck CTA. This document has been electronically signed by: Clarence Macedo MD on 04/18/2025 21:34:51
--- NOTE | 2025-04-18 20:09 | ECG_ITS ---
Test Reason : STROKE Blood Pressure : */* mmHG Vent. Rate : 60 BPM Atrial Rate : 60 BPM P-R Int : 162 ms QRS Dur : 90 ms QT Int : 420 ms P-R-T Axes : 51 -5 70 degrees QTcB Int : 420 ms Normal sinus rhythm Cannot rule out Anteroseptal infarct , age undetermined Abnormal ECG When compared with ECG of 12-Jan-2025 22:03, Minimal criteria for Anteroseptal infarct are now Present Referred By: Amisha Magdaleno Electronically Signed By: Boris Munguia
--- NOTE | 2025-04-18 20:09 | ED.NEUROSD ---
HPI - Neuro Symptoms/Deficit General Chief Complaint: Stroke Stated Complaint: possible stroke alert Time Seen by Provider: 04/18/25 20:07 Source: patient and EMS Mode of arrival: EMS Limitations: no limitations History of Present Illness ED Provider: Dr. Amisha Magdaleno HPI Narrative: patient comes to the emergency room complaining of dysarthria. According to the patient and EMS, the patient is started feeling dizzy, unsteady around 14:00, 6 hours ago. Around 18:00, 2 hours 10 minutes ago, the patient's friend picked him up from his house and they went shopping. It was noted that patient had dysarthria. Patient did noted as well. Around 20:00, the ambulance was called because the patient's dysarthria was getting worse. Patient denies any headache, any chest pain or shortness of breath. Patient states that he has weakness in all 4 upper and lower extremities. Patient states that he has chronic pain and is unable to fully participate in NIH assessment due to pain in bilateral upper and lower extremities. Also, patient states that he drank 1 Hg that today. Related Data Home Medications ?Medication ?Instructions ?Recorded ?Confirmed diphenhydramine HCl 25 mg tablet 25 mg PO BEDTIME PRN 11/22/21 03/16/25 (Benadryl Allergy) omeprazole 20 mg capsule,delayed 20 mg PO DAILY 11/22/21 03/16/25 release Previous Rx's ?Medication ?Instructions ?Recorded insulin syringe-needle U-100 1/2 0.5 ml miscellaneous BID #200 ea 07/08/24 mL 31 gauge x 15/64 (BD Veo Insulin Syringe Ultra-Fine) insulin lispro protamine-lispro 35 unit (0.35 mL) subcut BID #10 mL 02/18/25 100 unit/mL (75-25) subcutaneous susp (Humalog Mix 75-25(U-100)Insuln) atenolol 25 mg tablet 25 mg PO DAILY #90 tabs 03/08/25 blood sugar diagnostic (Accu-Chek #100 strips 03/15/25 Erika Plus test strips) pravastatin 80 mg tablet 80 mg PO DAILY #90 tabs 03/16/25 Allergies Allergy/AdvReac Type Severity Reaction Status Date / Time aspirin (ASPIRIN) Allergy Unknown HIVES Verified 04/18/25 20:09 Review of Systems Review of Systems: Constitutional : No Weight loss, No Fever, No Chills, No Night Sweats, No Fatigue, No Malaise ENT/Mouth : No Hearing loss, No Ear Pain, No Nasal Congestion, No Sinus Pain, No Hoarseness, No sore throat, No Rhinorrhea, No Swallowing Difficulty Eyes: No Eye Pain, No Swelling, No Redness, No Foreign Body, No Discharge, No Vision Changes Cardiovascular : No Chest Pain, No SOB, No Dyspnea on Exertion, No Orthopnea, No Edema, No Palpitations Respiratory : No Cough, No Sputum, No Wheezing, No Smoke Exposure, No Dyspnea Gastrointestinal : No Nausea, No Vomiting, No Diarrhea, No Constipation, No abdominal Pain, No Hematochezia, No Melena Genitourinary : no irregular bleeding, No Dysuria, No Urinary Frequency, No Hematuria, No Urinary Incontinence, No Urgency, No Flank Pain, No Urinary Flow Changes, No Hesitancy Musculoskeletal : No joint pain, No Myalgias, No Joint Swelling Skin : No Skin Lesions, No rash Neuro : complaining of bilateral upper and lower extremity weakness, patient complaining of new and worsening slurred speech Psych : No Anxiety/Panic, No Depression, No SI/HI/AH/VH, No Social Issues, Heme/Lymph: No Bruising, No Bleeding,No Lymphadenopathy Endocrine : No Polyuria, No Polydipsia, No Temperature Intolerance [facility] Past Medical History Medical History Hyperlipidemia Diabetes HTN (hypertension) Surgical History Hx of removal of cyst History of bunionectomy Family History Family History Father No problems noted. Mother No problems noted. Social History Social History Housing: House Alcohol intake: current Alcohol intake frequency: 3 or more drinks per day Alcohol type: hard liquor Patient Tobacco Use Status: Current everyday Tobacco user Tobacco use type: Cigarette Cigarette Packs Per Day: 0.5 Cigarettes Per Day: 10 Smoked in Last 30 Days: No e-Cigarette/Vaping Use: Never Used Second Hand Smoke Exposure: Yes Use of substances other than those prescribed or required for medical reasons: No Advance Directives: No Advance Directives Information Provided: No Do you have a plan to hurt others: No Plan service: No Current occupational status: disabled Cognitive needs: No Hearing needs: No Vision needs: Yes (Glasses) Physical Exam Vital Signs: Vital Signs: Last Vital Signs Temp 98.2 F 04/18/25 21:49 Pulse 60 04/18/25 21:49 Resp 17 04/18/25 21:49 BP 108/61 04/18/25 21:49 Pulse Ox 100 04/18/25 21:49 O2 Del Method Room Air 04/18/25 21:49 BMI result Body Mass Index 24.9 Const: Other: Appearance: Alert. Oriented X3. No acute distress. Eyes: Pupils equal, round and reactive to light. ENT: Pharynx normal. Neck: Normal inspection. Neck supple. No lymph nodes noted. No crepitus CVS: Normal heart rate and rhythm. Pulses normal. Normal S1 and S2 Respiratory: No respiratory distress. Breath sounds normal. No Wheezing. No rales Abdomen: Soft and nontender. No rigidity. No distention. Skin: Skin warm and dry. Normal skin color. Normal skin turgor. Extremities: No lower extremity edema. No Lacerations. No Rash Neuro: Oriented X 3. patient has significantly decreased strength in bilateral upper and lower extremities. Patient states that it is due to pain. However, it is obvious that patient has significant dysarthria Psych: calm, cooperative, normal affect Course Course Course Narrative: patient's NIH is difficult to assess due to patient's Chronic pain in extremities. When patient is asked to lift his legs are lift his arms patient's states I can't patient's initial NIH score is 10. However, this is because patient is unwilling to try moving his upper or lower extremities. However, if we would calculated NIH score if patient would be willing to move his arms, it would be too, points given for dysarthria Overall, it is difficult to Know exactly when the patient's symptoms started. Patient claims that he had initial onset of dizziness around 14:00 and then had 4 subsequent falls due to dizziness. However, patient was by himself and did not talk to anybody. The slurred speech was 1st noted at 18:00. Also, it is unclear how much alcohol patient really drank, patient states that he only drank 1 beer. All of patient's labs pending including ETOH level. Neurology on-call has been paged, called back pending Medications Administered Discontinued Medications Generic Name Dose Route Start Last Admin Trade Name [place] PRN Reason Stop Dose Admin Sodium Chloride 1,000 mls @ 999 mls/hr 04/18/25 21:45 04/18/25 23:00 Ns IV 04/18/25 22:45 Infused .Q1H1M KEVIN Infusion Iohexol 75 ml 04/18/25 20:37 04/18/25 20:37 Iohexol 350 Mg/Ml 100 Ml Infus..Btl IV 04/18/25 20:38 75 ml ONCE ONE Administration Medical Decision Making Medical Decision Making [facility] Narrative: 20:54, I discussed the patient with Dr. Arriola. Given the patient's onset of symptoms at 14:00, 7 hours ago, we will not be giving TNK. CTA pending. I received a phone call from radiology, CT and CTA did not show any acute abnormality. Patient's labs do not show any significant abnormality. , however patient's alcohol level is 260 patient has slurred speech is slowly improving, likely patient is becoming more sober? I discussed the patient with Dr. Delacruz from the Medicine team, patient being admitted after nilesh Delacruz spoke with the patient, patient was completely wide awake, alert, and wanted to leave against medical advice. However, within a few minutes, patient became very altered, confused, patient did not have any seizure-like activity. Patient is completely altered again. Patient is moving all extremities. patient was given 5 mg of diazepam. I spoke with the Medicine team, we will proceed with the admission. Patient has been started also on a phenobarb protocol. Differential Diagnosis Differential Diagnoses: The differential diagnosis associated with the presentation includes ( TIA, CVA, polysubstance abuse, alcohol abuse, alcohol intoxication) Admission/Observation Consideration of admission/observation: Escalation of care including admission/observation considered Consult Healthcare Provider Management of the patient was discussed with: Hospitalist Lab Data [facility] Lab Attestation statement: I reviewed the patient's lab results. 04/18/25 20:33 04/18/25 20:33 Labs: Lab Results 04/18/25 04/18/25 04/18/25 Range/Units 20:04 20:33 22:27 WBC 5.0 (4.8-10.8) X10*3/uL RBC 3.00 L (4.60-5.80) X10*6/uL Hgb 10.5 L (14.0-18.0) g/dl Hct 28.0 L (42.0-52.0) % MCV 93.3 (80.0-98.0) fL MCH 35.0 H (27.0-33.0) pg MCHC 37.5 H (31.0-36.0) g/dl RDW 12.8 (11.0-16.0) % Plt Count 160 (160-400) X10*3/uL MPV 9.7 (9.4-12.4) fL Immature Gran % (Auto) 0.0 (0.0-0.4) % Neut % (Auto) 51.5 (45-73) % Lymph % (Auto) 35.1 (20-40) % [place] % (Auto) 10.3 (2-11) % Eos % (Auto) 3.1 (0-4) % Baso % (Auto) 0.0 (0-2) % Lymph # (Auto) 0.3 L (1.2-4.9) X10*3/uL [place] # (Auto) 0.1 (0.1-1.2) X10*3/uL Eos # (Auto) 0.0 (0.0-0.4) X10*3/uL Baso # (Auto) 0.0 (0.0-0.2) X10*3/uL Abs Immat Gran (auto) 0.00 (0.00-0.03) X10*3/uL Absolute Neuts (auto) 0.5 L (2.0-8.3) x10*3/uL Absolute Nucleated RBC 0.000 (0.0-0.012) X10*3/uL Nucleated RBC % (auto) 0.0 (0.0-0.2) /100WBC Smear Tech's Comments VERIFIED Whole Blood PT 11.8 (11.1-13.5) sec Whole Blood INR 1.0 (0.9-1.1) Sodium 128 L (135-145) mmol/L Potassium 3.4 D (3.3-5.1) mmol/L Chloride 96 (96-108) mmol/L Carbon Dioxide 22 (22-29) mmol/L Anion Gap 13 (12-20) BUN 10 (9-16) mg/dL Creatinine 1.05 (0.5-1.4) mg/dL Estim Creat Clear Calc 71.4 Estimated GFR > 60 POC Glucose 147 H (60-115) mg/dL Random Glucose 124 H (60-115) mg/dL Calcium 8.3 L D (8.4-10.2) mg/dL Total Bilirubin 0.5 (0.0-1.0) mg/dL Direct Bilirubin 0.2 (0.0-0.5) mg/dL AST 61 H (5-37) U/L ALT 26 (0-40) U/L Alkaline Phosphatase 65 (39-117) U/L Troponin I High Sens 5.5 (<3.5-35.0) ng/L Total Protein 6.6 (6.5-8.0) g/dL Albumin 3.5 (3.5-5.0) g/dL Urine Color Yellow Urine Appearance Clear Urine pH 6.5 (5.0-9.0) Ur Specific [place] 1.020 (1.005-1.025) Urine Protein Negative (Neg-Trace) mg/dL Urine Glucose (UA) 250 H (Negative) mg/dL Urine Ketones Negative (Negative) mg/dL Urine Blood Negative (Negative) Urine Nitrite Negative (Negative) Ur Leukocyte Esterase Negative (Negative) Urine Opiates Screen Not Detected (Not Detect) Ur Buprenorphine Scrn Not Detected (Not Detect) ng/mL Ur Oxycodone Screen Not Detected (Not Detect) ng/mL Urine Methadone Screen Not Detected (Not Detect) ng/mL Urine Fentanyl Screen Not Detected (Not Detect) Ur Barbiturates Screen Not Detected (Not Detect) Ur Phencyclidine Scrn Not Detected (Not Detect) Ur Amphetamines Screen Not Detected (Not Detect) U Benzodiazepines Scrn Not Detected (Not Detect) Urine Cocaine Screen Not Detected (Not Detect) U Marijuana (THC) Screen Not Detected (Not Detect) Ethyl Alcohol 260 mg/dL Independent Interpretation I performed an independent interpretation of an: EKG Interpretation: my interpretation of EKG: Normal sinus rhythm, heart rate 60, no ST segment depression or elevation, no T-wave inversion, QTC 420 Radiology Impression Discussion of test interpretation with radiology: I have reviewed the radiologist's reading. Radiologist Impression: Aortic arch and cervical great vessels are patent with no aneurysm, dissection, hemodynamically significant stenoses, or occlusion. Atherosclerotic disease causing mild stenosis of the origin of the right vertebral artery. Intracranial arteries are patent. No aneurysm, dissection, hemodynamically significant stenoses, or occlusion. No abnormal intracranial enhancement. The visualized thyroid gland is unremarkable. No cervical mass or fluid collection. Lung apices clear. No acute fracture. IMPRESSION: Patent head and neck CTA. CT scan of the head: No acute intracranial abnormality identified for unclear reason, the radiology report did not cross over. NIH Stroke Scale Internal: Initial- Upon Arrival Level of Consciousness: Alert Level of Consciousness Questions: Answers both questions correctly Level of Consciousness Commands: Performs both tasks correctly Best Gaze: Normal Visual: No visual loss Facial Palsy: Normal Motor Arm (Right): Some effort against gravity Motor Arm (Left): Some effort against gravity Motor Leg (Right): Some effort against gravity Motor Leg (Left): Some effort against gravity Limb Ataxia: Absent Sensory: Normal Best Language: No aphasia Dysarthia: Severe dysarthria Extinction and Inattention: No abnormality Score: 10 Critical Care Time Critical Care Time Critical Care Time: Yes Total Critical Care Time: 60 Attestation: I have personally provided critical care time. Time includes review of lab data, radiology results, discussion with consultants, and monitoring for potential decompensation. Intervention performed as documented. Discharge Plan Discharge Clinical Impression: Slurring of speech, Multiple falls, Alcohol intoxication Patient Disposition: Admitted As Inpatient Print Language: Hungarian
[2025-04-18 20:10] LABS: Glucose, Whole Blood 147 mg/dL (60-115)
[2025-04-18] MEDS: iohexoL 350 MG/ML 100 ML INFUS..BTL 75 ML IV (20:37)
--- NOTE | 2025-04-18 20:37 | PC.NURSE ---
pt biba from home, a&ox4, respirations even and unlabored. ems called stroke alert station captain. ems reports dizziness and slurred speech after 4 falls today. pt reports etoh use as well. on arrival. dr patel at bedside with pt, pt placed in weighted bed, 18g placed right forearm, and pt taken to ct. pt states he remains dizzy and pt is noted to have slurred speech, pt not noted to have other neuro deficits. on arrival into room, pt reported photosensitivity and dizziness. pt nsr on tele, and vss. 18g placed in left forearm.
[2025-04-18 20:55] LABS: Alanine Aminotransferase 26 U/L (0-40); Albumin Level 3.5 g/dL (3.5-5.0); Alkaline Phosphatase 65 U/L (39-117); Anion Gap 13 (12-20); Aspartate Amino Transferase 61 U/L (5-37); Blood Urea Nitrogen 10 mg/dL (9-16); Calcium 8.3 mg/dL (8.4-10.2); Carbon Dioxide 22 mmol/L (22-29); Chloride 96 mmol/L (96-108); Creatinine Clr Calc Pharmacy 71.4; Estimated Glomerular Filt Rate > 60; Potassium 3.4 mmol/L (3.3-5.1); Sodium 128 mmol/L (135-145); Total Protein 6.6 g/dL (6.5-8.0)
[2025-04-18 21:19] LABS: Prothrombin Time Whole Bld POC 11.8 sec (11.1-13.5); ~PT, ~INR - Anti Coag Clinic 1.0 (0.9-1.1)
[2025-04-18 21:33] LABS: Imm Gran Abs Auto 0.00 X10*3/uL (0.00-0.03); Imm Gran Pct Auto 0.0 % (0.0-0.4); Lymphocytes Absolute Auto 0.3 X10*3/uL (1.2-4.9); MANUAL DIFF FLAG SCAN; Mean Corpuscular HGB Conc 37.5 g/dl (31.0-36.0); Mean Corpuscular Hemoglobin 35.0 pg (27.0-33.0); Mean Corpuscular Volume 93.3 fL (80.0-98.0); NRBC Abs Auto 0.000 X10*3/uL (0.0-0.012); NRBC Pct Auto 0.0 /100WBC (0.0-0.2); SCAN SMEAR FLAG 1
[2025-04-18 21:44] LABS: White Blood Count 5.0 X10*3/uL (4.8-10.8)
[2025-04-18 21:45] LABS: Hematocrit 28.0 % (42.0-52.0); Hemoglobin 10.5 g/dl (14.0-18.0); Platelet Count 160 X10*3/uL (160-400); Red Blood Count 3.00 X10*6/uL (4.60-5.80)
--- NOTE | 2025-04-18 21:51 | PC.NURSE ---
pt significant other at bedside, states she witness pt fall x4 times, state pt had 2 drinks and has never noticed a slurred speech when he drank like this in the past. at this time, pt states he is feeling better. iv fluids administering at this time
--- NOTE | 2025-04-18 22:29 | PC.NURSE ---
pt assisted to stand at bedside with urinal, urine sample obtained. pt able to stand without assistance. once in bed, swallow eval completed and passed. stoke education given to pt and pt girlfriend at bedside and both verbalized understanding
[2025-04-18 22:51] LABS: Appearance Urine Clear; Glucose Urine UA 250 mg/dL (Negative); PH 6.5 (5.0-9.0); Specific Gravity - Urine 1.020 (1.005-1.025)
[2025-04-18 23:02] LABS: Cannabinoid Screen Urine Not Detected (Not Detect)
[2025-04-18 23:56] LABS: Troponin-I High Sensitivity 5.5 ng/L (<3.5-35.0)
[2025-04-19] VITALS (14 sets, daily range): BP systolic 123–181; BP diastolic 52–76; PULSE 55–83; RESP 12–20; TEMP 36.3–37.1; O2SAT 93–100
--- NOTE | 2025-04-19 00:08 | PM.EVENT ---
Event Note Date of Service: 04/19/25 Event Note: I was asked to admit Mr. Mike as he has hyponatremia and concern for TIA/stroke. Unfortunately, he refused to get admitted. His girlfriend was at bedside. Both were informed about the danger of abandoning the hospital prematurately which includes: recurrent fall + trauma, seizures and . Time Spent With Patient Time: Total time managing care of this patient today ____ minutes.
--- NOTE | 2025-04-19 00:10 | PC.NURSE ---
at bedside with pt, per , pt would like to leave ama. awaiting new orders.
[2025-04-19] MEDS: diazePAM 10 MG/2 ML CARTRIDGE 5 MG IVPUSH (00:49)
--- NOTE | 2025-04-19 00:52 | PC.NURSE ---
pt noted to be increasing in activity and confused, and contacted at this time. [employer] attendant and at bedside. plan for admission. pt medicated per dec.
--- NOTE | 2025-04-19 01:05 | P.HPHOSP_ITS ---
History of Present Illness Date of Service: 04/19/25 Attending physician on admission: Syd Matias Chief Complaint: dysarthria Patient is a 59-year-old male with past medical history of alcohol abuse, tobacco dependence, insulin-dependent diabetes, hypertension, hyperlipidemia, GERD was brought in by ambulance from home and a stroke alert was called by EMS. Patient unable to provide any history at this time. Per emergency room providers note main complaint was dysarthria that progressively worsened throughout the day. EMS reported that patient initially felt dizzy and unsteady around 14:00. Then at 18:00 patient's friend picked patient up at home and they went shopping and that is when the dysarthria started. By 8 p.m. the ambulance was called to patient's home because of the dysarthria was getting worse. At that time patient denied any headache chest pain or shortness of breath. Patient did report at the time weakness in the upper and lower extremities. Patient does live with chronic pain but ED providers unable to establish NIH assessment due to patient's pain level in upper and lower extremities. Patient did admit to drinking alcohol earlier in the day. Patient's alcohol level was elevated at 260 and tox screen was otherwise negative. Emergency room provider did discuss case with Neurology and patient was not a candidate for TNK. CTA of the head and neck were negative for any acute findings but there is mild stenosis at the origin of the right vertebral artery. Request for admission was placed and patient was seen initially by Dr. Delacruz and patient deferred need for admission and was going to leave the emergency room department. Patient's girlfriend became emotional and felt that patient would require admission. The emergency room provider asked the hospitalist group to come back down and speak to the patient. This content writer did arrive to evaluate the patient and patient was moving slowly able to state one-word answers to questions asked. Notable dysarthria was present. Patient was able to follow commands. But patient would not be able to walk on his own out of the hospital at this time. Patient's sodium was 128 initially. Repeat lab work is pending including lactic acid, magnesium, TSH, VBG and BMP. Urinalysis negative except for glucose at 02:50. Further urine studies are pending for sodium and osmolarity. Nephrology has been consulted along with Neurology. MRI of the brain has also been ordered but this will not be done until the morning. Neurovascular checks will be done every 2 hours along with vital signs. Patient is not requiring oxygen but will be made NPO as it does not appear patient can protect his airway at this time. Speech therapy will also be consulted along with OT and PT. It is not 100% clear if patient is experiencing seizures or some other neurological experience secondary to alcohol use. Vital signs are stable and patient is afebrile and has no leukocytosis. 0145 BG was checked POC as ordered and was <10. This explains overall change in mental status most likely. Pt received D50 IVP and will start D10 infusion with Q1H BG checks until BG stays above 100 X2. Review of Systems 2 Review of Systems: Yes Unobtainable due to mental status [facility] Medical History Hyperlipidemia Diabetes HTN (hypertension) Cognitive capacity: Awake and alert to self only Functional capacity: bed bound (Normally ambulates independently) Family History Father No problems noted. Mother No problems noted. Surgical History Hx of removal of cyst History of bunionectomy Social History Housing: House Alcohol intake: current Alcohol intake frequency: 3 or more drinks per day Alcohol type: hard liquor Patient Tobacco Use Status: Never used Tobacco Tobacco use type: Cigarette Cigarette Packs Per Day: 0.5 Cigarettes Per Day: 10 Smoked in Last 30 Days: No e-Cigarette/Vaping Use: Never Used Second Hand Smoke Exposure: Yes Use of substances other than those prescribed or required for medical reasons: No Advance Directives: No Advance Directives Information Provided: No Do you have a plan to hurt others: No Plan Nutrition Risks: No Nutritional Risk service: No Current occupational status: disabled Cognitive needs: No Hearing needs: No Vision needs: Yes (Glasses) Ebola Risk: Travel/Contact With Anyone From Affected Area/s: No Has Patient Experienced Ebola Symptoms: No Meds Allergies Allergy/AdvReac Type Severity Reaction Status Date / Time aspirin (ASPIRIN) Allergy Unknown HIVES Verified 04/18/25 20:09 Active Medications: Current Medications Sodium Chloride (Ns) 1,000 mls @ 80 mls/hr IVCONT .[id number] FOR[facility]LY [facility], [facility] Pharmacy Consult (Consult Rx Etoh Phenob Im/Po) 1 each MISCELLANE ONCE PRN; Protocol PRN Reason: Consult order Home Medications ?Medication ?Instructions ?Recorded ?Confirmed ?Last Taken ?Type diphenhydramine HCl 25 mg tablet 25 mg PO BEDTIME PRN 11/22/21 03/16/25 Unknown History (Benadryl Allergy) omeprazole 20 mg capsule,delayed 20 mg PO DAILY 03/16/25 Unknown History release Physical Exam 2 Vital Signs and Narrative: Vital Signs: Last Vital Signs Temp 98.8 F 04/19/25 00:55 Pulse 70 04/19/25 00:55 Resp 17 04/19/25 00:55 BP 131/53 L 04/19/25 00:55 Pulse Ox 95 04/19/25 00:55 O2 Del Method Room Air 04/19/25 00:55 BMI result Body Mass Index 24.9 awake and minimally verbal, can state his name Dao and no to chest pain and SOB at rest, unable to give good history. Neuro: unable to assess accurately due to alcohol on board EYES: PERRLA, sclera nonicteric ENT: hearing intact, uvula midline, lips dry, nares patent, no epistaxis Cardiac: S1 S2 RRR, no murmur, no JVD, no edema in Lower ext Pulmonary: lungs diminshed B Abdominal: BS active in all 4 quadrants, no guarding, tenderness, rebounding MSK: unable to assess : no bladder distension Extremities: no edema in lower extremities, PT and DP pulses palpable +2 Psych: mood and affect flar, judgement and insight poor Skin: excoriations BLE's Results Labs 04/18/25 20:33 04/19/25 01:40 Labs: Laboratory Results - last 24 hr 04/18/25 04/18/25 04/18/25 20:04 20:33 22:27 MCV 93.3 MCH 35.0 H MCHC 37.5 H RDW 12.8 Plt Count 160 MPV 9.7 Immature Gran % (Auto) 0.0 Neut % (Auto) 51.5 Lymph % (Auto) 35.1 [place] % (Auto) 10.3 Eos % (Auto) 3.1 Baso % (Auto) 0.0 Lymph # (Auto) 0.3 L [place] # (Auto) 0.1 Eos # (Auto) 0.0 Baso # (Auto) 0.0 Abs Immat Gran (auto) 0.00 Absolute Neuts (auto) 0.5 L Absolute Nucleated RBC 0.000 Nucleated RBC % (auto) 0.0 Smear Tech's Comments VERIFIED Whole Blood PT 11.8 Whole Blood INR 1.0 Anion Gap 13 Estim Creat Clear Calc 71.4 Estimated GFR > 60 POC Glucose 147 H Random Glucose 124 H Calcium 8.3 L D Total Bilirubin 0.5 Direct Bilirubin 0.2 AST 61 H ALT 26 Alkaline Phosphatase 65 Total Protein 6.6 Albumin 3.5 Urine Color Yellow Urine Appearance Clear Urine pH 6.5 Ur Specific [place] 1.020 Urine Protein Negative Urine Glucose (UA) 250 H Urine Ketones Negative Urine Blood Negative Urine Nitrite Negative Ur Leukocyte Esterase Negative Urine Opiates Screen Not Detected Ur Buprenorphine Scrn Not Detected Ur Oxycodone Screen Not Detected Urine Methadone Screen Not Detected Urine Fentanyl Screen Not Detected Ur Barbiturates Screen Not Detected Ur Phencyclidine Scrn Not Detected Ur Amphetamines Screen Not Detected U Benzodiazepines Scrn Not Detected Urine Cocaine Screen Not Detected U Marijuana (THC) Screen Not Detected Ethyl Alcohol 260 ECG Attestation: I personally reviewed and interpreted this ECG as follows: (Normal sinus rhythm QTC 420) Imaging Radiologist's Impressions: CT cervical spine Findings: Vertebral alignment is within normal limits. Moderate spondylosis at C6-C7 with disc space narrowing, posterior disc osteophyte complex, osteophytosis and facet arthropathy. No acute fractures or dislocations. Visualized intracranial contents are unremarkable. Soft tissues of the neck are normal. No consolidation or effusion at the lung apices. IMPRESSION: No acute findings. Device independent Moderate spondylosis at C6-C7. Head and neck CTA Findings: Aortic arch and cervical great vessels are patent with no aneurysm, dissection, hemodynamically significant stenoses, or occlusion. Atherosclerotic disease causing mild stenosis of the origin of the right vertebral artery. Intracranial arteries are patent. No aneurysm, dissection, hemodynamically significant stenoses, or occlusion. No abnormal intracranial enhancement. The visualized thyroid gland is unremarkable. No cervical mass or fluid collection. Lung apices clear. No acute fracture. IMPRESSION: Patent head and neck CTA. Assessment and Plan (1) Alcohol intoxication: Qualifiers: Complication of substance-induced condition: with unspecified complication Qualified Code(s): F10.929 - Alcohol use, unspecified with intoxication, unspecified Status: Acute Plan Patient is a 59-year-old male with past medical history of alcohol abuse, tobacco dependence, insulin-dependent diabetes, hypertension, hyperlipidemia, GERD is being admitted for alcohol intoxication and hyponatremia with alteration of mental status. Initially there was concern for possible stroke and case was reviewed with Neurology. CTA HEAD AND NECK and Cervical spine CT negative for acute findings. Patient was not a candidate for TNK. Patient had worsening altered mental status with admission and patient found to be severely hypoglycemic. Patient is an insulin-dependent diabetic type 1. Dextrose infusion is currently running. Alcohol intoxication -Alcohol level 260, toxicology screen otherwise negative -[facility] protocol start -Phenobarbital initiated -Aspiration precautions in place -Patient currently NPO -Telemetry -Thiamine and folic acid ordered -Magnesium pending -Addictions consulted Severe hypoglycemia with known IDDM -POC <10, with noted change and decline in MS -D50 1 amp provided -D10 infusion started with Q1H BG checks until 2 consecutive BG levels are 100 or greater -BG 155 mg/dl, to ensure stabilization IVF changed to D5 0.9 NS at 80mls per hour, hourly BG checks for now -Pt does not have cell phone, is not interested in CGM and does not use insulin pump -family educator ordered Dysarthria with altered mental status/ maybe secondary to intermittent hypoglycemia -Neurology consulted -MRI of the brain ordered for the a.m. -Speech therapy eval ordered -Neurovascular checks ordered q.2 hours -OT and PT ordered Hyponatremia -Urine studies ordered for sodium, osmolality and serum osmolarity pending -Patient on 0.9 normal saline at 80 mL/hour -Repeat sodium pending, if still low, may require consult to nephrology -Renal function stable Hyperlipidemia -Lipid panel pending -Patient normally on statin Hypertension -Blood pressure currently stable -Avoid hypotension -Holding antihypertensives at this time GERD -Protonix IV Tobacco dependence -Unable to review and RT with patient at this time -Review nicotine patch when able DVT prophylaxis: Lovenox PPI prophylaxis: Protonix Med rec pending Full Code status Quality Stroke Does the patient have a stroke diagnosis?: No Reason for No Anti-thrombotic by Day Two: N/A - Med Ordered VTE Prior VTE?: No VTE Risk Level:: Medical - moderate - high VTE Device Contraindication: N/A - Device Ordered VTE Drug Contraindication: N/A - Med Ordered
[2025-04-19 01:44] LABS: Venous Blood Gas Refer to POC result
[2025-04-19 01:55] LABS: Glucose, Whole Blood < 10 mg/dL (60-115)
[2025-04-19 01:55] LABS: Glucose, Whole Blood 195 mg/dL (60-115)
[2025-04-19 01:55] LABS: Glucose, Whole Blood < 10 mg/dL (60-115)
[2025-04-19 01:58] LABS: Ammonia 29 umol/L (13-55)
--- NOTE | 2025-04-19 02:00 | PC.NURSE ---
pt noted to be diaphoretic, poc obtained x2 <10. provider immediately notified, iv push dextrose given. pt able to follow commands. provider aware, awaiting new orders.
[2025-04-19 02:01] LABS: VBG HCO3 24 mmol/L (22-26); VBG O2 % Saturation 94.0 %
[2025-04-19] MEDS: PHENobarbitaL sodium 130 MG/ML IM ONCE 328 MG IM (02:02)
[2025-04-19] MEDS: Dextrose 10 % 1,000 ML 75 ML IVCONT (02:02)
--- NOTE | 2025-04-19 02:15 | PC.NURSE ---
pt awake and alert, pt unsure of where he is. christos slip laster aware, okayed to give food. pt given ice cream okayed by provider. pt sitting up in bed and engaging in conversation with this rn.
[2025-04-19 02:21] LABS: Anion Gap 16 (12-20); Blood Urea Nitrogen 10 mg/dL (9-16); Calcium 9.0 mg/dL (8.4-10.2); Carbon Dioxide 21 mmol/L (22-29); Chloride 101 mmol/L (96-108); Creatinine Clr Calc Pharmacy 72.8; Estimated Glomerular Filt Rate > 60; Magnesium 2.2 mg/dL (1.6-2.6); Potassium 3.4 mmol/L (3.3-5.1); Sodium 135 mmol/L (135-145)
[2025-04-19 03:00] LABS: Glucose, Whole Blood 155 mg/dL (60-115)
--- NOTE | 2025-04-19 03:14 | PC.NURSE ---
provider aware of repeat poc, iv fluids d/c at this time. d50.9 hung at this time. pt assisted with standing at bedside to use urinal, voided 100ml. pt assisted back into bed. pt is a&ox4 at this time.
--- NOTE | 2025-04-19 03:33 | PC.NURSE ---
pt assisted with cell phone and calling girlfriend at this time. pt remains a&ox4, and following all commands
[2025-04-19 03:44] LABS: Reflex Lactate? Lactic Acid Added
[2025-04-19 04:05] LABS: Glucose, Whole Blood 159 mg/dL (60-115)
[2025-04-19] MEDS: PHENobarbitaL sodium 130 MG/ML VIAL IM Q3Hx2 246 MG IM (04:37)
[2025-04-19 05:05] LABS: ~Lactic Acid-LAB USE ONLY 2.3 mmol/L (0.5-2.0)
--- NOTE | 2025-04-19 06:05 | PC.NURSE ---
pt remains fully a&ox4 at this time with no neurological deficits noted. medicated per mar and poc obtained
[2025-04-19 06:09] LABS: Glucose, Whole Blood 250 mg/dL (60-115)
[2025-04-19 06:45] LABS: Reflex Lactate? 2 Y
[2025-04-19 06:49] LABS: MANUAL DIFF FLAG NO
[2025-04-19 06:53] LABS: Hematocrit 31.6 % (42.0-52.0); Hemoglobin 11.8 g/dl (14.0-18.0); Imm Gran Abs Auto 0.01 X10*3/uL (0.00-0.03); Imm Gran Pct Auto 0.2 % (0.0-0.4); Lymphocytes Absolute Auto 0.7 X10*3/uL (1.2-4.9); Mean Corpuscular HGB Conc 37.3 g/dl (31.0-36.0); Mean Corpuscular Hemoglobin 35.3 pg (27.0-33.0); Mean Corpuscular Volume 94.6 fL (80.0-98.0); NRBC Abs Auto 0.000 X10*3/uL (0.0-0.012); NRBC Pct Auto 0.0 /100WBC (0.0-0.2); Platelet Count 135 X10*3/uL (160-400); Red Blood Count 3.34 X10*6/uL (4.60-5.80); White Blood Count 4.1 X10*3/uL (4.8-10.8)
[2025-04-19 07:08] LABS: Glucose, Whole Blood 301 mg/dL (60-115)
[2025-04-19 07:19] LABS: Alanine Aminotransferase 24 U/L (0-40); Albumin Level 3.4 g/dL (3.5-5.0); Alkaline Phosphatase 66 U/L (39-117); Anion Gap 14 (12-20); Aspartate Amino Transferase 61 U/L (5-37); Blood Urea Nitrogen 9 mg/dL (9-16); Calcium 8.4 mg/dL (8.4-10.2); Carbon Dioxide 20 mmol/L (22-29); Chloride 100 mmol/L (96-108); Creatinine Clr Calc Pharmacy 76.5; Estimated Glomerular Filt Rate > 60; Magnesium 1.8 mg/dL (1.6-2.6); Potassium 4.4 mmol/L (3.3-5.1); Sodium 130 mmol/L (135-145); Total Protein 6.4 g/dL (6.5-8.0)
[2025-04-19 07:55] LABS: Osmolality, Serum 301 mosm/kg (281-305)
[2025-04-19 08:13] LABS: ~Lactic Acid-LAB USE ONLY 2.4 mmol/L (0.5-2.0)
--- NOTE | 2025-04-19 08:23 | PC.NURSE ---
per discussion with Dr. Crespo - DAWSON D5, and allow pt to eat breakfast. Do not give SS insulin yet. awaiting further orders. pt refuses IM phenobarb. Pt encouraged to have IM phenobarb, and pt continued to refuse.
[2025-04-19 08:40] LABS: Hemoglobin A1C 188.0095 umol/L; Total Hemoglobin (HGBA1C) 3115.7370 umol/L
--- NOTE | 2025-04-19 08:44 | PHA.MEDREC ---
Pharmacy Consult ? Medication Reconciliation Pharmacy has completed the medication reconciliation. Spoke to patient at bedside, he knew all his meds and says he takes his mixed insulin based on his blood sugars now. Will let the provider know.
[2025-04-19 08:59] LABS: Thyroid Stimulating Hormone 0.76 uIU/mL (0.32-4.0)
[2025-04-19] MEDS: 0.9 % Sodium Chloride Flush 3 ML SYRINGE IVFLUSH (09:02)
[2025-04-19] MEDS: Thiamine HCL 100 MG in 0.9 % Sodium Chloride 100 ML 202 MG IV (09:50)
--- NOTE | 2025-04-19 11:48 | HO.ADDICTCON ---
History of Present Illness Date of Service: 04/19/2025 Chief Complaint: Dizziness Reason for Consult: alcohol use Sources of Information: patient interviewed and chart reviewed HPI Narrative: Patient is a 59 year old male with history of T1DM, who presented to ED with dysarthria and concern for CVA. While in ED patient with significant change in MS found to be hypoglycemic (BS 13), admitted for further work up. Consult requested due to reported alcohol use. Etoh level at admission 260. Patient seen in room 18 of main ED --awaiting transfer to med floor. He is awake, alert, and oriented. Immediately inquiring when he can leave. He is stating that he feels better and doesn't know what happened yesterday. Attempted to discussed drinking alcohol and the heat, and diabetes. Patient declining to engage in discussion stating that he has been dealing with DM for 35 years and knows what he is doing. In terms of alcohol he reports drinking a couple of gin and diet grape sodas in the evenings to relax . No concern about his alcohol use. He denies withdrawal sx, and states that he does not drink like that. Chart review shows he received one dose of phenobarbital overnight, however refused dose this morning. CIWA score 0. No tremor noted. sitting comfortably in bed. Denies anxiety. Labs reviewed--Na 130 Pancytopenia Medical Evaluation Reviewed: Yes Review of Systems Constitutional: Reports as per HPI and Reports no additional constitutional complaints Diagnostics Vital Signs (24Hr): Vital Signs - 24 hr 04/18/25 20:29 04/18/25 20:33 04/18/25 21:49 Temperature 98.0 F 98.2 F Pulse Rate 73 62 60 Respiratory Rate 20 20 17 Blood Pressure 163/78 H 137/63 108/61 Pulse Oximetry 100 100 100 Oxygen Delivery Method Room Air Room Air Room Air 04/18/25 22:35 04/18/25 23:15 04/18/25 23:35 Temperature Pulse Rate 57 57 58 Respiratory Rate 15 14 13 Blood Pressure 142/65 H 132/64 123/59 L Pulse Oximetry Oxygen Delivery Method 04/19/25 00:05 04/19/25 00:15 04/19/25 00:55 Temperature 98.8 F Pulse Rate 65 65 70 Respiratory Rate 17 15 17 Blood Pressure 140/60 H 134/64 131/53 L Pulse Oximetry 95 95 Oxygen Delivery Method Room Air Room Air 04/19/25 01:12 04/19/25 01:15 04/19/25 01:35 Temperature 97.8 F Pulse Rate 68 62 75 Respiratory Rate 20 15 17 Blood Pressure 132/56 L 138/58 L 130/52 L Pulse Oximetry 93 98 Oxygen Delivery Method Room Air Room Air 04/19/25 02:03 04/19/25 04:03 04/19/25 04:36 Temperature 98.8 F 98.2 F Pulse Rate 58 62 55 Respiratory Rate 19 17 20 Blood Pressure 133/54 L 139/62 123/54 L Pulse Oximetry 98 98 Oxygen Delivery Method Room Air Room Air 04/19/25 05:40 04/19/25 06:01 Temperature 97.4 F 97.5 F Pulse Rate 58 63 Respiratory Rate 12 16 Blood Pressure 152/58 H 157/68 H Pulse Oximetry 97 98 Oxygen Delivery Method Room Air Room Air BMI result Body Mass Index 24.9 Labs 04/19/25 06:37 04/19/25 06:37 Labs: Laboratory Results - last 48 hr 04/18/25 04/18/25 04/18/25 20:04 20:33 22:27 WBC 5.0 RBC 3.00 L Hgb 10.5 L Hct 28.0 L MCV 93.3 MCH 35.0 H MCHC 37.5 H RDW 12.8 Plt Count 160 MPV 9.7 Immature Gran % (Auto) 0.0 Neut % (Auto) 51.5 Lymph % (Auto) 35.1 [place] % (Auto) 10.3 Eos % (Auto) 3.1 Baso % (Auto) 0.0 Lymph # (Auto) 0.3 L [place] # (Auto) 0.1 Eos # (Auto) 0.0 Baso # (Auto) 0.0 Abs Immat Gran (auto) 0.00 Absolute Neuts (auto) 0.5 L Absolute Nucleated RBC 0.000 Nucleated RBC % (auto) 0.0 Smear Tech's Comments VERIFIED Whole Blood PT 11.8 Whole Blood INR 1.0 VBG pH VBG pCO2 VBG pO2 VBG HCO3 VBG O2 Saturation VBG Base Excess Sodium 128 L Potassium 3.4 D Chloride 96 Carbon Dioxide 22 Anion Gap 13 BUN 10 Creatinine 1.05 Estim Creat Clear Calc 71.4 Estimated GFR > 60 POC Glucose 147 H Random Glucose 124 H Estimat Average Glucose Hemoglobin A1c % Osmolality Lactic Acid Lactic Acid F/U @ 2Hr Lactic Acid F/U @ 4Hr Calcium 8.3 L D Magnesium Total Bilirubin 0.5 Direct Bilirubin 0.2 AST 61 H ALT 26 Alkaline Phosphatase 65 Ammonia Troponin I High Sens 5.5 Total Protein 6.6 Albumin 3.5 Beta-Hydroxybutyrate TSH Urine Color Yellow Urine Appearance Clear Urine pH 6.5 Ur Specific [place] 1.020 Urine Protein Negative Urine Glucose (UA) 250 H Urine Ketones Negative Urine Blood Negative Urine Nitrite Negative Ur Leukocyte Esterase Negative Urine Osmolality Ur Random Sodium Urine Opiates Screen Not Detected Ur Buprenorphine Scrn Not Detected Ur Oxycodone Screen Not Detected Urine Methadone Screen Not Detected Urine Fentanyl Screen Not Detected Ur Barbiturates Screen Not Detected Ur Phencyclidine Scrn Not Detected Ur Amphetamines Screen Not Detected U Benzodiazepines Scrn Not Detected Urine Cocaine Screen Not Detected U Marijuana (THC) Screen Not Detected Ethyl Alcohol 260 04/19/25 04/19/25 04/19/25 01:35 01:40 01:45 WBC RBC Hgb Hct MCV MCH MCHC RDW Plt Count MPV Immature Gran % (Auto) Neut % (Auto) Lymph % (Auto) [place] % (Auto) Eos % (Auto) Baso % (Auto) Lymph # (Auto) [place] # (Auto) Eos # (Auto) Baso # (Auto) Abs Immat Gran (auto) Absolute Neuts (auto) Absolute Nucleated RBC Nucleated RBC % (auto) Smear Tech's Comments Whole Blood PT Whole Blood INR VBG pH VBG pCO2 VBG pO2 VBG HCO3 VBG O2 Saturation VBG Base Excess Sodium 135 Potassium 3.4 Chloride 101 Carbon Dioxide 21 L Anion Gap 16 BUN 10 Creatinine 1.03 Estim Creat Clear Calc 72.8 Estimated GFR > 60 POC Glucose < 10 L* Random Glucose 13 L* Estimat Average Glucose Hemoglobin A1c % Osmolality Lactic Acid 2.1 H* Lactic Acid F/U @ 2Hr Lactic Acid F/U @ 4Hr Calcium 9.0 D Magnesium 2.2 Total Bilirubin Direct Bilirubin AST ALT Alkaline Phosphatase Ammonia 29 Troponin I High Sens Total Protein Albumin Beta-Hydroxybutyrate 0.20 TSH Urine Color Urine Appearance Urine pH Ur Specific [place] Urine Protein Urine Glucose (UA) Urine Ketones Urine Blood Urine Nitrite Ur Leukocyte Esterase Urine Osmolality 239 L Ur Random Sodium 34.0 Urine Opiates Screen Ur Buprenorphine Scrn Ur Oxycodone Screen Urine Methadone Screen Urine Fentanyl Screen Ur Barbiturates Screen Ur Phencyclidine Scrn Ur Amphetamines Screen U Benzodiazepines Scrn Urine Cocaine Screen U Marijuana (THC) Screen Ethyl Alcohol 04/19/25 04/19/25 04/19/25 01:47 01:51 02:57 WBC RBC Hgb Hct MCV MCH MCHC RDW Plt Count MPV Immature Gran % (Auto) Neut % (Auto) Lymph % (Auto) [place] % (Auto) Eos % (Auto) Baso % (Auto) Lymph # (Auto) [place] # (Auto) Eos # (Auto) Baso # (Auto) Abs Immat Gran (auto) Absolute Neuts (auto) Absolute Nucleated RBC Nucleated RBC % (auto) Smear Tech's Comments Whole Blood PT Whole Blood INR VBG pH 7.35 VBG pCO2 43 VBG pO2 80 VBG HCO3 24 VBG O2 Saturation 94.0 VBG Base Excess -0.7 Sodium Potassium Chloride Carbon Dioxide Anion Gap BUN Creatinine Estim Creat Clear Calc Estimated GFR POC Glucose < 10 L* 195 H 155 H Random Glucose Estimat Average Glucose Hemoglobin A1c % Osmolality Lactic Acid Lactic Acid F/U @ 2Hr Lactic Acid F/U @ 4Hr Calcium Magnesium Total Bilirubin Direct Bilirubin AST ALT Alkaline Phosphatase Ammonia Troponin I High Sens Total Protein Albumin Beta-Hydroxybutyrate TSH Urine Color Urine Appearance Urine pH Ur Specific [place] Urine Protein Urine Glucose (UA) Urine Ketones Urine Blood Urine Nitrite Ur Leukocyte Esterase Urine Osmolality Ur Random Sodium Urine Opiates Screen Ur Buprenorphine Scrn Ur Oxycodone Screen Urine Methadone Screen Urine Fentanyl Screen Ur Barbiturates Screen Ur Phencyclidine Scrn Ur Amphetamines Screen U Benzodiazepines Scrn Urine Cocaine Screen U Marijuana (THC) Screen Ethyl Alcohol 04/19/25 04/19/25 04/19/25 04:02 04:41 06:03 WBC RBC Hgb Hct MCV MCH MCHC RDW Plt Count MPV Immature Gran % (Auto) Neut % (Auto) Lymph % (Auto) [place] % (Auto) Eos % (Auto) Baso % (Auto) Lymph # (Auto) [place] # (Auto) Eos # (Auto) Baso # (Auto) Abs Immat Gran (auto) Absolute Neuts (auto) Absolute Nucleated RBC Nucleated RBC % (auto) Smear Tech's Comments Whole Blood PT Whole Blood INR VBG pH VBG pCO2 VBG pO2 VBG HCO3 VBG O2 Saturation VBG Base Excess Sodium Potassium Chloride Carbon Dioxide Anion Gap BUN Creatinine Estim Creat Clear Calc Estimated GFR POC Glucose 159 H 250 H Random Glucose Estimat Average Glucose Hemoglobin A1c % Osmolality Lactic Acid Lactic Acid F/U @ 2Hr 2.3 H* Lactic Acid F/U @ 4Hr Calcium Magnesium Total Bilirubin Direct Bilirubin AST ALT Alkaline Phosphatase Ammonia Troponin I High Sens Total Protein Albumin Beta-Hydroxybutyrate TSH Urine Color Urine Appearance Urine pH Ur Specific [place] Urine Protein Urine Glucose (UA) Urine Ketones Urine Blood Urine Nitrite Ur Leukocyte Esterase Urine Osmolality Ur Random Sodium Urine Opiates Screen Ur Buprenorphine Scrn Ur Oxycodone Screen Urine Methadone Screen Urine Fentanyl Screen Ur Barbiturates Screen Ur Phencyclidine Scrn Ur Amphetamines Screen U Benzodiazepines Scrn Urine Cocaine Screen U Marijuana (THC) Screen Ethyl Alcohol 04/19/25 04/19/25 04/19/25 06:37 07:05 07:31 WBC 4.1 L RBC 3.34 L Hgb 11.8 L Hct 31.6 L MCV 94.6 MCH 35.3 H MCHC 37.3 H RDW 12.7 Plt Count 135 L MPV 9.5 Immature Gran % (Auto) 0.2 Neut % (Auto) 71.1 Lymph % (Auto) 17.7 L [place] % (Auto) 9.0 Eos % (Auto) 1.0 Baso % (Auto) 1.0 Lymph # (Auto) 0.7 L [place] # (Auto) 0.4 Eos # (Auto) 0.0 Baso # (Auto) 0.0 Abs Immat Gran (auto) 0.01 Absolute Neuts (auto) 2.9 Absolute Nucleated RBC 0.000 Nucleated RBC % (auto) 0.0 Smear Tech's Comments Whole Blood PT Whole Blood INR VBG pH VBG pCO2 VBG pO2 VBG HCO3 VBG O2 Saturation VBG Base Excess Sodium 130 L Potassium 4.4 D Chloride 100 Carbon Dioxide 20 L Anion Gap 14 BUN 9 Creatinine 0.98 Estim Creat Clear Calc 76.5 Estimated GFR > 60 POC Glucose 301 H Random Glucose 276 H Estimat Average Glucose 174 Hemoglobin A1c % 7.7 H Osmolality 301 Lactic Acid Lactic Acid F/U @ 2Hr Lactic Acid F/U @ 4Hr 2.4 H* Calcium 8.4 D Magnesium 1.8 Total Bilirubin 0.5 Direct Bilirubin AST 61 H ALT 24 Alkaline Phosphatase 66 Ammonia Troponin I High Sens Total Protein 6.4 L Albumin 3.4 L Beta-Hydroxybutyrate TSH 0.76 Urine Color Urine Appearance Urine pH Ur Specific [place] Urine Protein Urine Glucose (UA) Urine Ketones Urine Blood Urine Nitrite Ur Leukocyte Esterase Urine Osmolality Ur Random Sodium Urine Opiates Screen Ur Buprenorphine Scrn Ur Oxycodone Screen Urine Methadone Screen Urine Fentanyl Screen Ur Barbiturates Screen Ur Phencyclidine Scrn Ur Amphetamines Screen U Benzodiazepines Scrn Urine Cocaine Screen U Marijuana (THC) Screen Ethyl Alcohol Imaging Radiology Impressions: ITS Impressions Orbit X-Ray 04/19/25 11:10 IMPRESSION: No radiopaque foreign body is identified. Electronically signed by: Amie Singh MD 04/19/2025 11:31 AM EDT RP Mental Status Exam Mental Status Exam Patient Appearance: Appropriate Level of Consciousness: Awake, Appropriate and Alert Patient Behavior: Appropriate and Guarded Affect Description: Constricted Speech Pattern: Clear Thought Process: Intact Thought Content: positive for Intact Judgement: Fair Medications Medications Current Medications Acetaminophen (Acetaminophen 325 Mg Tablet) 650 mg PO Q6H PRN PRN Reason: Pain, Mild 1-3,fever,headache Albuterol/Ipratropium (Albuterol/Iprat 2.5/0.5mg 3 Ml Ampul.Neb) 3 ml INHALE Q4H PRN PRN Reason: Shortness of Breath/Wheezing Bacitracin (Bacitracin Oint 0.9 Gm Packet) 1 appl TOPICAL BID KEVIN; Protocol Last Admin: 04/19/25 09:50 Dose: 1 appl Dextrose (Dextrose 50 % 25 Gm/50 Ml Syringe) 25 gm IVPUSH Q15M PRN; Protocol PRN Reason: per Hypoglycemia Standing Ord. Last Admin: 04/19/25 01:48 Dose: 25 gm Enoxaparin Sodium (Enoxaparin Sodium 40 Mg/0.4 Ml Syringe) 40 mg SUBCUT BEDTIME KEVIN Last Admin: 04/19/25 02:02 Dose: 40 mg Glucose (Glucose Gel 15 Gm Gel..Gram.) 15 gm PO Q15M PRN; Protocol PRN Reason: per Hypoglycemia Standing Ord. Thiamine HCl 100 mg/ Sodium (Chloride) 101 mls @ 202 mls/hr IV DAILY KEVIN Last Infusion: 04/19/25 11:34 Dose: Infused Folic Acid 1 mg/ Sodium (Chloride) 50.2 mls @ 100.4 mls/hr IV DAILY [facility]EV[facility] Last Infusion: 04/19/25 09:47 Dose: Infused Insulin Human Lispro (Insulin Lispro 100 Unit/Ml 3 Ml Vial) 0 unit SUBCUT Q6H [facility]; Protocol Last Admin: 04/19/25 07:49 Dose: Not Given Magnesium Hydroxide (Milk Of Magnesia 30 Ml Oral.Susp) 30 ml PO DAILY PRN PRN Reason: Constipation Melatonin (Melatonin 3 Mg Tablet) 6 mg PO BEDTIME PRN PRN Reason: Insomnia Ondansetron HCl (Ondansetron Hcl 4 Mg/2 Ml Vial) 4 mg IVPUSH Q8H PRN PRN Reason: Nausea and Vomiting Pantoprazole Sodium (Pantoprazole Sodium 40 Mg/10 Ml Vial) 40 mg IVPUSH DAILY@0630 [facility] Last Admin: 04/19/25 06:02 Dose: 40 mg Pharmacy Consult (Consult Rx Etoh Phenob Im/Po) 1 each MISCELLANE ONCE PRN; Protocol PRN Reason: Consult order Phenobarbital (Phenobarbital 15 Mg Tablet) 45 mg PO Q12H [facility]; Protocol Stop: 04/21/25 03:01 Phenobarbital (Phenobarbital 15 Mg Tablet) 15 mg PO BID [facility]; Protocol Stop: 04/22/25 21:01 Phenobarbital (Phenobarbital 15 Mg Tablet) 15 mg PO DAILY [facility]; Protocol Stop: 04/24/25 09:01 Sodium Chloride (0.9 % Sodium Chloride Flush 3 Ml Syringe) 3 ml IVFLUSH QSHIFT [facility] Last Admin: 04/19/25 09:02 Dose: 3 ml Allergies Allergies Allergy/AdvReac Type Severity Reaction Status Date / Time aspirin (ASPIRIN) Allergy Unknown HIVES Verified 04/18/25 20:09 Assessment & Plan Assessment & Plan (1) Alcohol intoxication: Qualifiers: Complication of substance-induced condition: with unspecified complication Qualified Code(s): F10.929 - Alcohol use, unspecified with intoxication, unspecified Status: Acute Code(s): F10.929 - Alcohol use, unspecified with intoxication, unspecified Assessment and Plan: intoxication/concern for intoxication resolved, patient eager to discharge unclear what alcohol use history is as patient does not wish to discuss CIWA 0--declining pheno doses. Thiamine and folic acid encouraged to stay hydrated while drinking alcohol bruno, during the summer and being outside. --could not discuss beyond this. precontemplative ---may benefit from additional risk reduction strategies/education related to ongoing alcohol use and impact on overall health. Total time managing care of this patient today _30___ minutes. [facility] Past Medical History Medical History Hyperlipidemia Diabetes HTN (hypertension) Family History Family History Father No problems noted. Mother No problems noted. Surgical History Surgical History Hx of removal of cyst History of bunionectomy Social History Social History (Reviewed 04/19/25 @ 01: by DANA Ravi) Housing: House Alcohol intake: current Alcohol intake frequency: 3 or more drinks per day Alcohol type: hard liquor Patient Tobacco Use Status: Never used Tobacco Tobacco use type: Cigarette Cigarette Packs Per Day: 0.5 Cigarettes Per Day: 10 Smoked in Last 30 Days: No e-Cigarette/Vaping Use: Never Used Second Hand Smoke Exposure: Yes Use of substances other than those prescribed or required for medical reasons: No Advance Directives: No Advance Directives Information Provided: No Do you have a plan to hurt others: No Plan Nutrition Risks: No Nutritional Risk service: No Current occupational status: disabled Cognitive needs: No Hearing needs: No Vision needs: Yes (Glasses)
[2025-04-19 12:02] LABS: Glucose, Whole Blood 409 mg/dL (60-115)
--- NOTE | 2025-04-19 12:03 | PC.NURSE ---
pt to MRI. POC was [address] Crespo notified - plan for insulin ordered per MAR on return from MRI. pt neuros intact - no slurred speech or facial droop. gait equal, strength equal. GCS 15. CIWA 0
[2025-04-19 13:02] LABS: Glucose, Whole Blood 437 mg/dL (60-115)
--- NOTE | 2025-04-19 13:03 | PC.NURSE ---
pt back from MRI. per Dr. Crespo, give the 10 units of lispro as ordered by sliding scale.
--- NOTE | 2025-04-19 13:19 | MHC.CM.PN ---
PATIENT STATES THAT HE IS INDEPENDENT PRIOR TO ARRIVAL. NO DME OR VNA SERVICES. HE REPORTS THAT HE COMPLETED A MOLST AND CP AT DR TSAI'S OFFICE AND THAT A COPY IS ON FILE WITH PCP. PATIENT BELIEVES HIS DAUGHTER, ANITHA, IS THE AGENT, AND THAT SHE WORKS HERE AT [facility] – [place], [place]. PATIENT PREFERS TO DC HOME AT DISCHARGE TIME. HE REPORTS THJAT HE HAS A FRIEND WHO WILL PROVIDER TRANSPORT. [facility] DESIGNATION FORM UPLOADED INTO [facility].
--- NOTE | 2025-04-19 13:20 | PM.NEUROCN ---
History of Present Illness Data of Consult Service Date: 04/19/25 Primary Care Provider: MADELINE Caballero HPI Reason for consult: Dysarthria This is a 59-year-old male with h/o chronic alcohol abuse, insulin-dependent diabetes, hypertension, hyperlipidemia, GERD was brought in by ambulance from home with a possible stroke alert called by EMS. Patient unable to provide any history at this time. The main complaint was dysarthria that progressively worsened throughout the day. EMS reported that patient initially felt dizzy and unsteady around 14:00. Then at 18:00 patient's friend picked patient up at home and they went shopping and that is when the dysarthria started. By 8 p.m. the ambulance was called to patient's home because of the dysarthria was getting worse. At that time patient denied any headache chest pain or shortness of breath. Patient did report generalized weakness in the upper and lower extremities. Patient has chronic pain but ED providers unable to establish NIH assessment due to patient's pain level in upper and lower extremities. Patient's alcohol level was elevated at 260 and tox screen was otherwise negative. He was not a candidate for TNK. CTA of the head and neck were negative for any acute findings with mild stenosis at the origin of the right vertebral artery. MRI showed no acute stroke. Diffuse chronic white matter microvascular disease. Initially, he refused admission. [facility] Past Medical History Medical History Hyperlipidemia Diabetes HTN (hypertension) Family History Family History Father No problems noted. Mother No problems noted. Surgical History Surgical History Hx of removal of cyst History of bunionectomy Social History Social History Housing: House Alcohol intake: current Alcohol intake frequency: 3 or more drinks per day Alcohol type: hard liquor Patient Tobacco Use Status: Never used Tobacco Tobacco use type: Cigarette Cigarette Packs Per Day: 0.5 Cigarettes Per Day: 10 Smoked in Last 30 Days: No e-Cigarette/Vaping Use: Never Used Second Hand Smoke Exposure: Yes Use of substances other than those prescribed or required for medical reasons: No Advance Directives: No Advance Directives Information Provided: No Do you have a plan to hurt others: No Plan Nutrition Risks: No Nutritional Risk service: No Current occupational status: disabled Cognitive needs: No Hearing needs: No Vision needs: Yes (Glasses) Travel History Ebola Risk: Travel/Contact With Anyone From Affected Area/s: No Has Patient Experienced Ebola Symptoms: No Meds Allergies Allergy/AdvReac Type Severity Reaction Status Date / Time aspirin (ASPIRIN) Allergy Unknown HIVES Verified 04/18/25 20:09 Active Medications: Current Medications Acetaminophen (Acetaminophen 325 Mg Tablet) 650 mg PO Q6H PRN PRN Reason: Pain, Mild 1-3,fever,headache Albuterol/Ipratropium (Albuterol/Iprat 2.5/0.5mg 3 Ml Ampul.Neb) 3 ml INHALE Q4H PRN PRN Reason: Shortness of Breath/Wheezing Atenolol (Atenolol 25 Mg Tablet) 25 mg PO DAILY KEVIN; Protocol Bacitracin (Bacitracin Oint 0.9 Gm Packet) 1 appl TOPICAL BID [facility]; Protocol Last Admin: 04/19/25 09:50 Dose: 1 appl Dextrose (Dextrose 50 % 25 Gm/50 Ml Syringe) 25 gm IVPUSH Q15M PRN; Protocol PRN Reason: per Hypoglycemia Standing Ord. Last Admin: 04/19/25 01:48 Dose: 25 gm Diphenhydramine HCl (Diphenhydramine Hcl 25 Mg Capsule) 25 mg PO DAILY PRN PRN Reason: Allergies Enoxaparin Sodium (Enoxaparin Sodium 40 Mg/0.4 Ml Syringe) 40 mg SUBCUT BEDTIME KEVIN Last Admin: 04/19/25 02:02 Dose: 40 mg Glucose (Glucose Gel 15 Gm Gel..Gram.) 15 gm PO Q15M PRN; Protocol PRN Reason: per Hypoglycemia Standing Ord. Thiamine HCl 100 mg/ Sodium (Chloride) 101 mls @ 202 mls/hr IV DAILY [facility] Last Infusion: 04/19/25 11:34 Dose: Infused Folic Acid 1 mg/ Sodium (Chloride) 50.2 mls @ 100.4 mls/hr IV DAILY [facility] Last Infusion: 04/19/25 09:47 Dose: Infused Insulin Glargine (Insulin Glargine,Hum.Rec.Anlog 100 Unit/Ml 10 Ml Vial) 12 unit SUBCUT DAILY [facility] Insulin Human Lispro (Insulin Lispro 100 Unit/Ml 3 Ml Vial) 0 unit SUBCUT Q6H [facility]; Protocol Last Admin: 04/19/25 13:10 Dose: 10 unit Magnesium Hydroxide (Milk Of Magnesia 30 Ml Oral.Susp) 30 ml PO DAILY PRN PRN Reason: Constipation Melatonin (Melatonin 3 Mg Tablet) 6 mg PO BEDTIME PRN PRN Reason: Insomnia Omeprazole (Omeprazole 20 Mg Capsule.Dr) 20 mg PO DAILY [facility] Ondansetron HCl (Ondansetron Hcl 4 Mg/2 Ml Vial) 4 mg IVPUSH Q8H PRN PRN Reason: Nausea and Vomiting Pantoprazole Sodium (Pantoprazole Sodium 40 Mg/10 Ml Vial) 40 mg IVPUSH DAILY@0630 [facility] Last Admin: 04/19/25 06:02 Dose: 40 mg Pharmacy Consult (Consult Rx Etoh Phenob Im/Po) 1 each MISCELLANE ONCE PRN; Protocol PRN Reason: Consult order Phenobarbital (Phenobarbital 15 Mg Tablet) 45 mg PO Q12H [facility]; Protocol Stop: 04/21/25 03:01 Phenobarbital (Phenobarbital 15 Mg Tablet) 15 mg PO BID [facility]; Protocol Stop: 04/22/25 21:01 Phenobarbital (Phenobarbital 15 Mg Tablet) 15 mg PO DAILY [facility]; Protocol Stop: 04/24/25 09:01 Pravastatin Sodium (Pravastatin Sodium 80 Mg Tablet) 80 mg PO DAILY [facility] Sodium Chloride (0.9 % Sodium Chloride Flush 3 Ml Syringe) 3 ml IVFLUSH QSHIFT [facility] Last Admin: 04/19/25 09:02 Dose: 3 ml Home Medications ?Medication ?Instructions ?Recorded ?Confirmed ?Last Taken ?Type diphenhydramine HCl 25 mg tablet 25 mg PO DAILY PRN Allergies 11/22/21 04/19/25 04/18/25 09:00 History (Benadryl Allergy) omeprazole 20 mg capsule,delayed 20 mg PO DAILY 11/22/21 04/19/25 04/18/25 09:00 History release insulin lispro protamine-lispro See Protocol subcut BID 04/19/25 04/19/25 04/18/25 09:00 History 100 unit/mL (75-25) subcutaneous susp (Humalog Mix 75-25(U-100)Insuln) Physical Exam Vital Signs: Vital Signs: Last Vital Signs Temp 98.1 F 04/19/25 13:02 Pulse 73 04/19/25 13:02 Resp 18 04/19/25 13:02 BP 181/76 H 04/19/25 13:02 Pulse Ox 100 04/19/25 13:02 O2 Del Method Room Air 04/19/25 13:02 BMI result Body Mass Index 24.9 Neuro: Other: He is alert and oriented. He has no dysarthria or dysphagia. Cranial nerves 2-12 are normal. Muscle tone and strength are normal in all 4 extremities. Deep tendon reflexes symmetrical plantar responses flexor Results Labs 04/19/25 06:37 04/19/25 06:37 Labs: Short CBC 04/18/25 04/19/25 Range/Units 20:33 06:37 WBC 5.0 4.1 L (4.8-10.8) X10*3/uL Hgb 10.5 L 11.8 L (14.0-18.0) g/dl Hct 28.0 L 31.6 L (42.0-52.0) % Plt Count 160 135 L (160-400) X10*3/uL BMP 04/18/25 04/19/25 04/19/25 20:33 01:40 06:37 Sodium 128 L 135 130 L Potassium 3.4 D 3.4 4.4 D Chloride 96 101 100 Carbon Dioxide 22 21 L 20 L BUN 10 10 9 Creatinine 1.05 1.03 0.98 Calcium 8.3 L D 9.0 D 8.4 D Liver Function 04/18/25 04/19/25 Range/Units 20:33 06:37 Total Bilirubin 0.5 0.5 (0.0-1.0) mg/dL Direct Bilirubin 0.2 (0.0-0.5) mg/dL AST 61 H 61 H (5-37) U/L ALT 26 24 (0-40) U/L Alkaline Phosphatase 65 66 (39-117) U/L Albumin 3.5 3.4 L (3.5-5.0) g/dL Urine 04/18/25 Range/Units 22:27 Urine Color Yellow Urine Appearance Clear Urine pH 6.5 (5.0-9.0) Ur Specific [place] 1.020 (1.005-1.025) Urine Protein Negative (Neg-Trace) mg/dL Urine Glucose (UA) 250 H (Negative) mg/dL Assessment and Plan (1) Slurring of speech: Status: Acute Transient dysarthria and ataxia probably related to alcohol intoxication. No evidence of stroke on imaging studies. The patient is back to baseline. No further neurological workup is necessary. Recommend alcohol rehab. (2) Alcohol intoxication: Qualifiers: Complication of substance-induced condition: with unspecified complication Qualified Code(s): F10.929 - Alcohol use, unspecified with intoxication, unspecified Status: Acute Procedures Date of Service Date of Service: 04/19/25
--- NOTE | 2025-04-19 15:28 | MHC.SL.SWA ---
Risk of Aspiration Due to: cognitive status ?stroke Dysphasia Diet Status: no change Liquid Consistency and Strategies for Safe Swallow: Liquid Intake Recommendation: Thin Solid Food Consistency: Dietary Recommendations: Regular Oral Medication Intake: Whole with Liquid Please contact the pharmacy regarding appropriate crushable or liquid drug formulations that are available whenever modified delivery is recommended. Compensatory Strategies and Precautions to be Taken for Safe Swallow: upright Supervision While Eating and Drinking for Safe Swallow: Intermittent Supervision Recommendation for Speech: Inpatient Speech Therapy Comment: Recommend continue w/ regular solids and thin liquids. Pills whole in liquid ok. ASSOCIATE DIRECTOR OF NURSING to f/u 1x to ensure toleration of diet. Frequency/Duration: 1 f/u Roll Coating Machine Operator Clinican/Clinical Fellow: No Supervisory Statement: I have reviewed and agree with the student/clinical fellow's documentation: N/A Speech Language Pathologist: Lisset Madison M.A., CCC-ASSOCIATE DIRECTOR OF NURSING
--- NOTE | 2025-04-19 16:19 | PC.NURSE ---
called Dr. Crespo to discuss pt dispo. pt states he wants to leave. educated that this would be AMA. Pt adamant that he wants to leave. states he feels well. He is walking steadily, speaking and eating clearly. VSS. Refusing phenobarb
--- NOTE | 2025-04-19 17:37 | P.DS_ITS ---
DS: Providers Provider Date of Service: 04/19/25 Date of admission: 04/18/25 23:57 Date of discharge: 04/19/25 Primary care physician: MADELINE Caballero Consults: 04/19/25 01:07 Consult to Neurology Routine Consulting Provider: [facility] Reason for consultation: AMS progressing, ETOH on board, dysarthria ? CVA Has provider been notified: No 04/19/25 03:09 Addiction Medicine Provider Routine Consulting Provider: Addiction Covering Reason for consultation: ETOH abuse Has provider been notified: No Attending physician on discharge: Mary Crespo Discharging clinician: Mary Crespo DS: Diagnosis Discharge Diagnosis (1) Alcohol intoxication: Status: Acute DS: Summary Hospital Course Hospital Course: HPI: 59-year-old male with past medical history of alcohol abuse, tobacco dependence, insulin-dependent diabetes, hypertension, hyperlipidemia, GERD was brought in by ambulance from home and a stroke alert was called by EMS. Patient unable to provide any history at this time. Per emergency room providers note main complaint was dysarthria that progressively worsened throu ghout the day. EMS reported that patient initially felt dizzy and unsteady around 14:00. Then at 18:00 patient's friend picked patient up at home and they went shopping and that is when the dysarthria started. By 8 p.m. the ambulance was called to patient's home because of the dysarthria was getting worse. At that time patient denied any headache chest pain or shortness of breath. Patient did report at the time weakness in the upper and lower extremities. Patient does live with chronic pain but ED providers unable to establish NIH assessment due to patient's pain level in upper and lower extremities. Patient did admit to drinking alcohol earlier in the day. Patient's alcohol level was elevated at 260 and tox screen was otherwise negative. Emergency room provider did discuss case with Neurology and patient was not a candidate for TNK. CTA of the head and neck were negative for any acute findings but there is mild stenosis at the origin of the right vertebral artery. Request for admission was placed and patient was seen initially by Dr. Delacruz and patient deferred need for admission and was going to leave the emergency room department. Patient's girlfriend became emotional and felt that patient would require admission. The emergency room provider asked the hospitalist group to come back down and speak to the patient. This marketing writer did arrive to evaluate the patient and patient was moving slowly able to state one-word answers to questions asked. Notable dysarthria was present. Patient was able to follow commands. But patient would not be able to walk on his own out of the hospital at this time. Patient's sodium was 128 initially. Repeat lab work is pending including lactic acid, magnesium, TSH, VBG and BMP. Urinalysis negative except for glucose at 02:50. Further urine studies are pending for sodium and osmolarity. Nephrology has been consulted along with Neurology. MRI of the brain has also been ordered but this will not be done until the morning. Neurovascular checks will be done every 2 hours along with vital signs. Patient is not requiring oxygen but will be made NPO as it does not appear patient can protect his airway at this time. Speech therapy will also be consulted along with OT and PT. It is not 100% clear if patient is experiencing seizures or some other neurological experience secondary to alcohol use. Vital signs are stable and patient is afebrile and has no leukocytosis. 0145 BG was checked POC as ordered and was <10. This explains overall change in mental status most likely. Pt received D50 IVP and will start D10 infusion with Q1H BG checks until BG stays above 100 X2. Hospital course: 59-year-old male with past medical history of alcohol abuse, tobacco dependence, insulin-dependent diabetes, hypertension, hyperlipidemia, GERD is being admitted for alcohol intoxication and hyponatremia with alteration of mental status. Initially there was concern for possible stroke and case was reviewed with Neurology. CTA HEAD AND NECK and Cervical spine CT negative for acute findings. Patient was not a candidate for TNK. Patient had worsening altered mental status with admission and patient found to be severely hypoglycemic. Patient is an insulin-dependent diabetic type 1. Dextrose infusion given. Alcohol intoxication-patient was advised to cutdown alcohol and if possible abstain from alcohol. refuses phenobarb, last CIWA was 0. Risk of alcohol use discussed with him in detail length he understand and is still not interested in stopping alcohol use. Acute lactic acidosis possibly multifactorial(alcohol ketoacidosis, hyperglycemia, dec po intake). Severe hypoglycemia with known IDDM : Patient attributes to lower p.o. intake, says he was drinking but taking a little bit snacks in between. Hypoglycemia improved with dextrose infusion, this morning started to have hyperglycemia given Lantus and sliding scale coverage-currently patient is refusing to stay for fingerstick monitoring. Talked with endocrinology-it did not show up during his previous appointment endocrinology also. Dysarthria with altered mental status/ maybe secondary to intermittent hypoglycemia MRI head and negative, seen by neuro:Transient dysarthria and ataxia probably related to alcohol intoxication. No evidence of stroke on imaging studies. The patient is back to baseline. No further neurological workup is necessary. Recommend alcohol rehab. Hyponatremia: Corrected sodium is around 132-133 range. Possibly related to decreased p.o. intake and alcohol use. Patient was strongly advised to follow up with PCP andelectrolyte monitoring. Above management discussed with the patient in detail length with the help of nurse staff at the bedside-advised to adjust his insulin to Lantus also but patient categorically refuses he wanted to keep his same insulin. In addition risk of leaving against medical advice including diabetic ketoacidosis, hyperglycemia, alcohol withdrawal as well as seizure and trauma including -discussed with him in detail length with his friend present. Patient understands and still want to leave he is alert oriented x3, could able to reciprocate the risks of leaving against medical advice-still wants to leave against medical advice. All questions answered. Of note: His friend at bedside said that this is the longest he stayed in any hospital. In fact he was trying to sign out last night also please see note of night physician last night. Patient was told to monitor his fingersticks, abstain from alcohol, go to the nearest emergency room get treatment. Monitor electrolytes. Assessment and plan coordination time spent 50 minute. Time Attestation Total time managing care of this patient today: 50 mintues. Discharge Coordination Time (in mins): 50 min Quality: Safe Use of Opioids Does Pt have an Active Cancer Diagnosis on the Problem List?: No Quality: Stroke Does the patient have a stroke diagnosis?: No Physical Exam Vital Signs: Vital Signs: Last Vital Signs Temp 98.1 F 04/19/25 13:02 Pulse 83 04/19/25 14:08 Resp 20 04/19/25 14:08 BP 153/62 H 04/19/25 14:08 Pulse Ox 100 04/19/25 14:08 O2 Del Method Room Air 04/19/25 14:08 BMI result Body Mass Index 24.9 Appearance: Alert.? Oriented X3. cvs: rrr, [id number]. res: clear to auscultation ,no rhonchii or wheezing abd: no rebound or guarding ,nt, bs present. ext pulses present , no cyanosis. neuro: axo3 , nonfocal. DS: Data Data Completed and Pending Labs on day of discharge: Laboratory Results - last 24 hr 04/18/25 04/18/25 04/18/25 20:04 20:33 22:27 WBC 5.0 RBC 3.00 L Hgb 10.5 L Hct 28.0 L MCV 93.3 MCH 35.0 H MCHC 37.5 H RDW 12.8 Plt Count 160 MPV 9.7 Immature Gran % (Auto) 0.0 Neut % (Auto) 51.5 Lymph % (Auto) 35.1 Bailey % (Auto) 10.3 Eos % (Auto) 3.1 Baso % (Auto) 0.0 Lymph # (Auto) 0.3 L Bailey # (Auto) 0.1 Eos # (Auto) 0.0 Baso # (Auto) 0.0 Abs Immat Gran (auto) 0.00 Absolute Neuts (auto) 0.5 L Absolute Nucleated RBC 0.000 Nucleated RBC % (auto) 0.0 Smear Tech's Comments VERIFIED Whole Blood PT 11.8 Whole Blood INR 1.0 VBG pH VBG pCO2 VBG pO2 VBG HCO3 VBG O2 Saturation VBG Base Excess Sodium 128 L Potassium 3.4 D Chloride 96 Carbon Dioxide 22 Anion Gap 13 BUN 10 Creatinine 1.05 Estim Creat Clear Calc 71.4 Estimated GFR > 60 POC Glucose 147 H Random Glucose 124 H Estimat Average Glucose Hemoglobin A1c % Osmolality Lactic Acid Lactic Acid F/U @ 2Hr Lactic Acid F/U @ 4Hr Calcium 8.3 L D Magnesium Total Bilirubin 0.5 Direct Bilirubin 0.2 AST 61 H ALT 26 Alkaline Phosphatase 65 Ammonia Troponin I High Sens 5.5 Total Protein 6.6 Albumin 3.5 Beta-Hydroxybutyrate TSH Urine Color Yellow Urine Appearance Clear Urine pH 6.5 Ur Specific Pennock 1.020 Urine Protein Negative Urine Glucose (UA) 250 H Urine Ketones Negative Urine Blood Negative Urine Nitrite Negative Ur Leukocyte Esterase Negative Urine Osmolality Ur Random Sodium Urine Opiates Screen Not Detected Ur Buprenorphine Scrn Not Detected Ur Oxycodone Screen Not Detected Urine Methadone Screen Not Detected Urine Fentanyl Screen Not Detected Ur Barbiturates Screen Not Detected Ur Phencyclidine Scrn Not Detected Ur Amphetamines Screen Not Detected U Benzodiazepines Scrn Not Detected Urine Cocaine Screen Not Detected U Marijuana (THC) Screen Not Detected Ethyl Alcohol 260 04/19/25 04/19/25 04/19/25 01:35 01:40 01:45 WBC RBC Hgb Hct MCV MCH MCHC RDW Plt Count MPV Immature Gran % (Auto) Neut % (Auto) Lymph % (Auto) Bailey % (Auto) Eos % (Auto) Baso % (Auto) Lymph # (Auto) Bailey # (Auto) Eos # (Auto) Baso # (Auto) Abs Immat Gran (auto) Absolute Neuts (auto) Absolute Nucleated RBC Nucleated RBC % (auto) Smear Tech's Comments Whole Blood PT Whole Blood INR VBG pH VBG pCO2 VBG pO2 VBG HCO3 VBG O2 Saturation VBG Base Excess Sodium 135 Potassium 3.4 Chloride 101 Carbon Dioxide 21 L Anion Gap 16 BUN 10 Creatinine 1.03 Estim Creat Clear Calc 72.8 Estimated GFR > 60 POC Glucose < 10 L* Random Glucose 13 L* Estimat Average Glucose Hemoglobin A1c % Osmolality Lactic Acid 2.1 H* Lactic Acid F/U @ 2Hr Lactic Acid F/U @ 4Hr Calcium 9.0 D Magnesium 2.2 Total Bilirubin Direct Bilirubin AST ALT Alkaline Phosphatase Ammonia 29 Troponin I High Sens Total Protein Albumin Beta-Hydroxybutyrate 0.20 TSH Urine Color Urine Appearance Urine pH Ur Specific Pennock Urine Protein Urine Glucose (UA) Urine Ketones Urine Blood Urine Nitrite Ur Leukocyte Esterase Urine Osmolality 239 L Ur Random Sodium 34.0 Urine Opiates Screen Ur Buprenorphine Scrn Ur Oxycodone Screen Urine Methadone Screen Urine Fentanyl Screen Ur Barbiturates Screen Ur Phencyclidine Scrn Ur Amphetamines Screen U Benzodiazepines Scrn Urine Cocaine Screen U Marijuana (THC) Screen Ethyl Alcohol 04/19/25 04/19/25 04/19/25 01:47 01:51 02:57 WBC RBC Hgb Hct MCV MCH MCHC RDW Plt Count MPV Immature Gran % (Auto) Neut % (Auto) Lymph % (Auto) Bailey % (Auto) Eos % (Auto) Baso % (Auto) Lymph # (Auto) Bailey # (Auto) Eos # (Auto) Baso # (Auto) Abs Immat Gran (auto) Absolute Neuts (auto) Absolute Nucleated RBC Nucleated RBC % (auto) Smear Tech's Comments Whole Blood PT Whole Blood INR VBG pH 7.35 VBG pCO2 43 VBG pO2 80 VBG HCO3 24 VBG O2 Saturation 94.0 VBG Base Excess -0.7 Sodium Potassium Chloride Carbon Dioxide Anion Gap BUN Creatinine Estim Creat Clear Calc Estimated GFR POC Glucose < 10 L* 195 H 155 H Random Glucose Estimat Average Glucose Hemoglobin A1c % Osmolality Lactic Acid Lactic Acid F/U @ 2Hr Lactic Acid F/U @ 4Hr Calcium Magnesium Total Bilirubin Direct Bilirubin AST ALT Alkaline Phosphatase Ammonia Troponin I High Sens Total Protein Albumin Beta-Hydroxybutyrate TSH Urine Color Urine Appearance Urine pH Ur Specific Pennock Urine Protein Urine Glucose (UA) Urine Ketones Urine Blood Urine Nitrite Ur Leukocyte Esterase Urine Osmolality Ur Random Sodium Urine Opiates Screen Ur Buprenorphine Scrn Ur Oxycodone Screen Urine Methadone Screen Urine Fentanyl Screen Ur Barbiturates Screen Ur Phencyclidine Scrn Ur Amphetamines Screen U Benzodiazepines Scrn Urine Cocaine Screen U Marijuana (THC) Screen Ethyl Alcohol 04/19/25 04/19/25 04/19/25 04:02 04:41 06:03 WBC RBC Hgb Hct MCV MCH MCHC RDW Plt Count MPV Immature Gran % (Auto) Neut % (Auto) Lymph % (Auto) Bailey % (Auto) Eos % (Auto) Baso % (Auto) Lymph # (Auto) Bailey # (Auto) Eos # (Auto) Baso # (Auto) Abs Immat Gran (auto) Absolute Neuts (auto) Absolute Nucleated RBC Nucleated RBC % (auto) Smear Tech's Comments Whole Blood PT Whole Blood INR VBG pH VBG pCO2 VBG pO2 VBG HCO3 VBG O2 Saturation VBG Base Excess Sodium Potassium Chloride Carbon Dioxide Anion Gap BUN Creatinine Estim Creat Clear Calc Estimated GFR POC Glucose 159 H 250 H Random Glucose Estimat Average Glucose Hemoglobin A1c % Osmolality Lactic Acid Lactic Acid F/U @ 2Hr 2.3 H* Lactic Acid F/U @ 4Hr Calcium Magnesium Total Bilirubin Direct Bilirubin AST ALT Alkaline Phosphatase Ammonia Troponin I High Sens Total Protein Albumin Beta-Hydroxybutyrate TSH Urine Color Urine Appearance Urine pH Ur Specific Pennock Urine Protein Urine Glucose (UA) Urine Ketones Urine Blood Urine Nitrite Ur Leukocyte Esterase Urine Osmolality Ur Random Sodium Urine Opiates Screen Ur Buprenorphine Scrn Ur Oxycodone Screen Urine Methadone Screen Urine Fentanyl Screen Ur Barbiturates Screen Ur Phencyclidine Scrn Ur Amphetamines Screen U Benzodiazepines Scrn Urine Cocaine Screen U Marijuana (THC) Screen Ethyl Alcohol 04/19/25 04/19/25 04/19/25 06:37 07:05 07:31 WBC 4.1 L RBC 3.34 L Hgb 11.8 L Hct 31.6 L MCV 94.6 MCH 35.3 H MCHC 37.3 H RDW 12.7 Plt Count 135 L MPV 9.5 Immature Gran % (Auto) 0.2 Neut % (Auto) 71.1 Lymph % (Auto) 17.7 L Bailey % (Auto) 9.0 Eos % (Auto) 1.0 Baso % (Auto) 1.0 Lymph # (Auto) 0.7 L Bailey # (Auto) 0.4 Eos # (Auto) 0.0 Baso # (Auto) 0.0 Abs Immat Gran (auto) 0.01 Absolute Neuts (auto) 2.9 Absolute Nucleated RBC 0.000 Nucleated RBC % (auto) 0.0 Smear Tech's Comments Whole Blood PT Whole Blood INR VBG pH VBG pCO2 VBG pO2 VBG HCO3 VBG O2 Saturation VBG Base Excess Sodium 130 L Potassium 4.4 D Chloride 100 Carbon Dioxide 20 L Anion Gap 14 BUN 9 Creatinine 0.98 Estim Creat Clear Calc 76.5 Estimated GFR > 60 POC Glucose 301 H Random Glucose 276 H Estimat Average Glucose 174 Hemoglobin A1c % 7.7 H Osmolality 301 Lactic Acid Lactic Acid F/U @ 2Hr Lactic Acid F/U @ 4Hr 2.4 H* Calcium 8.4 D Magnesium 1.8 Total Bilirubin 0.5 Direct Bilirubin AST 61 H ALT 24 Alkaline Phosphatase 66 Ammonia Troponin I High Sens Total Protein 6.4 L Albumin 3.4 L Beta-Hydroxybutyrate TSH 0.76 Urine Color Urine Appearance Urine pH Ur Specific Pennock Urine Protein Urine Glucose (UA) Urine Ketones Urine Blood Urine Nitrite Ur Leukocyte Esterase Urine Osmolality Ur Random Sodium Urine Opiates Screen Ur Buprenorphine Scrn Ur Oxycodone Screen Urine Methadone Screen Urine Fentanyl Screen Ur Barbiturates Screen Ur Phencyclidine Scrn Ur Amphetamines Screen U Benzodiazepines Scrn Urine Cocaine Screen U Marijuana (THC) Screen Ethyl Alcohol 04/19/25 04/19/25 11:59 12:59 WBC RBC Hgb Hct MCV MCH MCHC RDW Plt Count MPV Immature Gran % (Auto) Neut % (Auto) Lymph % (Auto) Bailey % (Auto) Eos % (Auto) Baso % (Auto) Lymph # (Auto) Bailey # (Auto) Eos # (Auto) Baso # (Auto) Abs Immat Gran (auto) Absolute Neuts (auto) Absolute Nucleated RBC Nucleated RBC % (auto) Smear Tech's Comments Whole Blood PT Whole Blood INR VBG pH VBG pCO2 VBG pO2 VBG HCO3 VBG O2 Saturation VBG Base Excess Sodium Potassium Chloride Carbon Dioxide Anion Gap BUN Creatinine Estim Creat Clear Calc Estimated GFR POC Glucose 409 H* 437 H* Random Glucose Estimat Average Glucose Hemoglobin A1c % Osmolality Lactic Acid Lactic Acid F/U @ 2Hr Lactic Acid F/U @ 4Hr Calcium Magnesium Total Bilirubin Direct Bilirubin AST ALT Alkaline Phosphatase Ammonia Troponin I High Sens Total Protein Albumin Beta-Hydroxybutyrate TSH Urine Color Urine Appearance Urine pH Ur Specific [place] Urine Protein Urine Glucose (UA) Urine Ketones Urine Blood Urine Nitrite Ur Leukocyte Esterase Urine Osmolality Ur Random Sodium Urine Opiates Screen Ur Buprenorphine Scrn Ur Oxycodone Screen Urine Methadone Screen Urine Fentanyl Screen Ur Barbiturates Screen Ur Phencyclidine Scrn Ur Amphetamines Screen U Benzodiazepines Scrn Urine Cocaine Screen U Marijuana (THC) Screen Ethyl Alcohol Imaging Chest x-ray: Radiologist's impression: ITS Impressions Orbit X-Ray 04/19/25 11:10 IMPRESSION: No radiopaque foreign body is identified. Brain MRI 04/19/25 12:00 IMPRESSION: 1. No evidence of intracranial hemorrhage, acute infarction, mass effect, or edema. 2. Mild changes of small vessel ischemia. 3. Mildly age advanced cerebral and cerebellar involutional changes. 4. Mild paranasal sinus disease. cta head: IMPRESSION: Patent head and neck CTA. ct neck: IMPRESSION: No acute findings. Device independent Moderate spondylosis at C6-C7. Discharge Plan Discharge Anticipated Discharge Date/Time: 04/19/25 17:26 Patient Disposition: Left Against Medical Advice Discharge Diagnosis: Alcohol intoxication Referrals: Bon Martinez FNP-C [Primary Care Provider, Internal Medicine] - 1 Week Discharge Medications: Continued atenolol 25 mg tablet 25 mg PO DAILY Qty: 90 0RF (DME) Accu-Chek Erika Plus test strp Strip See Rx Instructions .ROUTE .COMPLEX Qty: 100 0RF Dose Instruction: USE TO CHECK BLOOD SUGAR TWICE DAILY Rx Instructions: USE TO CHECK BLOOD SUGAR TWICE DAILY Humalog Mix 75-25(U-100)Insuln 100 unit/mL (75-25) suspension See Protocol subcut BID Protocol: Insulin Correction Scale Less than or equal to 110 ---- Give (units): 0 111 to 150 Give (units): 0 151 to 200 Give (units): 2 201 to 250 Give (units): 4 251 to 300 Give (units): 6 301 to 350 Give (units): 8 Greater than 350 Give (units): 10 Call MD if Blood Glucose > : 350 diphenhydramine HCl [Benadryl Allergy] 25 mg tablet 25 mg PO DAILY PRN (Reason: Allergies) omeprazole 20 mg capsule,delayed release(DR/EC) 20 mg PO DAILY pravastatin 80 mg tablet 80 mg PO DAILY Qty: 90 3RF Discharge Orders: Discharge Order (Routine); Ordered 04/19/25 Ordered By: Mary Crespo Diet: Advance to usual diet Activity on Discharge: As tolerated Stand Alone Forms: Against Medical Advice Print Language: [place] Care Plan Goals: left ama Health Concerns: left ama Plan of Treatment: left ama Assessment: left ama
--- NOTE | 2025-04-19 18:11 | PC.NURSE ---
POC taken just prior to DC. 487. notified. Pt has already been counseled on staying and refuses to stay. Per Dr. Crespo allowed to leave AMA. Pt ambulates without assistance. AOx4
[2025-04-20 05:56] LABS: Glucose, Whole Blood 487 mg/dL (60-115)
[2025-04-21 04:42] LABS: A. Phagocytphilium DNA,RT-PCR NOT DETECTED (NOT DETECTED); Babesia Microti DNA, RT-PCR NOT DETECTED (NOT DETECTED); Borrelia Miyamotoi,DNA RT-PCR NOT DETECTED (NOT DETECTED); E.Chaffeensis DNA RT-PCR NOT DETECTED (NOT DETECTED); Lyme(Borrelia ssp)DNA RT-PCR NOT DETECTED (NOT DETECTED)
== END 2025-04-19 17:51 | disposition left against medical advice (07) | DRG 638 ==
LOC: HO.ED 23:56 → HO.EDOVER 04-19 02:37
PROVIDERS: Nurse Practitioner Family; Admitting Provider Internal Medicine; Emergency Provider Emergency Medicine; Visit Provider Internal Medicine
DX: E11.649 Type 2 diabetes mellitus with hypoglycemia without coma (principal); E87.1 Hypo-osmolality and hyponatremia; Y90.8 Blood alcohol level of 240 mg/100 ml or more; F17.210 Nicotine dependence, cigarettes, uncomplicated; Z71.6 Tobacco abuse counseling; E78.5 Hyperlipidemia, unspecified; I10 Essential (primary) hypertension; K21.9 Gastro-esophageal reflux disease without esophagitis; F10.129 Alcohol abuse with intoxication, unspecified; Z79.4 Long term (current) use of insulin; Z79.899 Other long term (current) drug therapy
CPT/HCPCS: 36415; 70450; 70496; 70498; 70551; 72125; 80048; 80053; 80076; 80307; 81003; 82010; 82140; 82803; 82947; 83036; 83605; 83735; 83930; 83935; 84300; 84443; 84484; 85025; 85610; 87468; 87469; 87478; 87484; 87798; 92610; 93005; 97161; 97165; 99222; 99285; J1650; J1808; J2470; J2560; J3360; J3411; Q9967

== ENCOUNTER → 2025-04-18 20:08 | Outpatient (BNV) | payer OTHER, SELFPAY | PROVIDERS: Emergency Provider Emergency Medicine; Visit Provider Student in an Organized Health Care Education/Training Program | DX: R47.1 Dysarthria and anarthria (principal) | CPT/HCPCS: 70450; 70496; 70498; 72125 ==

== ENCOUNTER → 2025-04-18 20:09 | Outpatient (BNV) | payer MEDICARE, SELFPAY | PROVIDERS: Admitting Provider Internal Medicine; Emergency Provider Emergency Medicine; Visit Provider Internal Medicine Cardiovascular Disease | DX: R94.31 Abnormal electrocardiogram [ECG] [EKG] (principal); I63.9 Cerebral infarction, unspecified | CPT/HCPCS: 93010 ==

== ENCOUNTER → 2025-04-18 21:18 | Outpatient (BNV) | payer OTHER, SELFPAY | PROVIDERS: Emergency Provider Emergency Medicine; Visit Provider Internal Medicine | DX: F10.929 Alcohol use, unspecified with intoxication, unspecified (principal) | CPT/HCPCS: 99235; 99499 ==

== ENCOUNTER 2025-04-18 23:57 | Outpatient (BNV) | payer MEDICARE, SELFPAY | END 2025-04-19 12:00 | PROVIDERS: Admitting Provider Internal Medicine; Emergency Provider Emergency Medicine; Visit Provider Radiology Diagnostic Radiology | DX: R47.1 Dysarthria and anarthria (principal); R42 Dizziness and giddiness; G35 Multiple sclerosis; F10.90 Alcohol use, unspecified, uncomplicated | CPT/HCPCS: 70551 ==

== ENCOUNTER → 2025-04-18 23:57 | Outpatient (BNV) | payer OTHER, SELFPAY | PROVIDERS: Admitting Provider Internal Medicine; Emergency Provider Emergency Medicine; Visit Provider Nurse Practitioner Psychiatric/Mental Health | DX: F10.929 Alcohol use, unspecified with intoxication, unspecified (principal) | CPT/HCPCS: 99232 ==

== ENCOUNTER → 2025-04-18 23:57 | Outpatient (BNV) | payer MEDICARE, SELFPAY | PROVIDERS: Admitting Provider Internal Medicine; Emergency Provider Emergency Medicine; Visit Provider Psychiatry & Neurology Neurology | DX: R47.81 Slurred speech (principal); F10.929 Alcohol use, unspecified with intoxication, unspecified | CPT/HCPCS: 99222 ==

== ENCOUNTER 2025-04-21 18:07 | Emergency (ER) | payer MEDICARE, SELFPAY ==
[2025-04-21 18:17] VITALS: BP 130/53; BP 167/83; PULSE 56; PULSE 61; RESP 18; TEMP 36.7; O2SAT 100; O2SAT 99; BMI 26.8
--- NOTE | 2025-04-21 18:18 | ED_ITS ---
HPI - General Adult General Chief complaint: Weakness Stated complaint: Lower Extremity Weakness Time Seen by Provider: 04/21/25 18:17 Source: patient Mode of arrival: EMS Limitations: no limitations History of Present Illness ED Provider: Kermit Almaraz PA-C HPI narrative: Patient is a 59-year-old male with medical history of HLD, T2DM, HTN, alcohol use disorder, who presented to ED by EMS due to lower extremity weakness. Patient states he was seen in the department 2 days ago (04/19) after fall and concerns of stroke. Patient reports he has had weakness and difficulty walking since his last visit. Patient states he was walking to the store prior to arrival when he felt progressive weakness of bilateral legs. Patient states he drinks ?a little bit of gin? daily, this is part of his routine. When asked to quantify how much and he has he states ?a little here, a little there? but will not identify an absolute amount of how much he drinks per day. Patient states he had ?a few drinks today?, but does not think that this is contributing to his weakness. Denies chest pain, shortness of breath, calf pain, lightheadedness, dizziness, headaches, visual changes. Onset (ago): day(s) (2) Location: lower extremity (B/L legs ) Radiation: non-radiation Associated symptoms: denies other symptoms Treatments prior to arrival: none Related Data Home Medications ?Medication ?Instructions ?Recorded ?Confirmed diphenhydramine HCl 25 mg tablet 25 mg PO DAILY PRN Al lergies 11/22/21 04/19/25 (Benadryl Allergy) omeprazole 20 mg capsule,delayed 20 mg PO DAILY 04/19/25 release insulin lispro protamine-lispro See Protocol subcut BI D 04/19/25 04/19/25 100 unit/mL (75-25) subcutaneous susp (Humalog Mix 75-25(U-100)Insuln) Previous Rx's ?Medication ?Instructions ?Recorded atenolol 25 mg tablet 25 mg PO DAILY #90 tabs 02/11 05/06 blood sugar diagnostic (Accu-Chek #100 strips 03/15/25 Erika Plus test strips) pravastatin 80 mg tablet 80 mg PO DAILY #90 tabs 02/04 Allergies Allergy/AdvReac Type Severity Reaction Status Date / Time aspirin (ASPIRIN) Allergy Unknown HIVES Verified 04/21/25 18:19 Review of Systems Review of Systems: CONST: Negative for fever, body aches and chills. HENT: Negative for neck pain/stiffness, headache, congestion, sore throat, swelling. EYES: Negative for discharge/pain or vision changes. RESP: Negative for cough/hemoptysis and shortness of breath. CV: Negative chest pain, difficulty breathing, palpitations. ABD: Negative pain, nausea, vomiting. : Negative increase frequency, dysuria, blood in urine or stool. MUSC: Negative for muscle aches, edema. SKIN: Negative rash, lesions/sores. NEURO: Negative headache, dizziness. POS LE weakness Yes all other systems are reviewed and are negative [facility] Past Medical History Attestation statement: The following information was validated with the patient. Source: old records reviewed and nursing notes reviewed Medical History Hyperlipidemia Diabetes HTN (hypertension) Surgical History Hx of removal of cyst History of bunionectomy Family History Family History Father No problems noted. Mother No problems noted. Social History Social History Housing: House Alcohol intake: current Alcohol intake frequency: 3 or more drinks per day Alcohol type: hard liquor Patient Tobacco Use Status: Never used Tobacco Tobacco use type: Cigarette Cigarette Packs Per Day: 0.5 Cigarettes Per Day: 10 Smoked in Last 30 Days: No e-Cigarette/Vaping Use: Never Used Second Hand Smoke Exposure: Yes Use of substances other than those prescribed or required for medical reasons: No Advance Directives: No Advance Directives Information Provided: No Do you have a plan to hurt others: No Plan service: No Current occupational status: disabled Cognitive needs: No Hearing needs: No Vision needs: Yes (Glasses) Physical Exam ED Vital Signs: Vital Signs - 24 hr 04/21/25 18:17 04/21/25 18:22 Temperature 98.1 F 98.1 F Pulse Rate 56 56 Respiratory Rate 18 18 Blood Pressure 130/53 L 130/53 L Pulse Oximetry 100 100 Oxygen Delivery Method Room Air Room Air BMI result Body Mass Index 26.8 GENERAL APPEARANCE: ?AxOx4, no acute distress. Patient with slow speech, with alcohol halitosis, and unsteady gait consistent with alcohol intoxication. Patient states he has drank a little bit of gin today. HEENT: ?NC, AT. MMM. EOMI, clear conjunctiva, oropharynx clear, alcohol halitosis present. NECK: ?Supple without lymphadenopathy.? No stiffness or restricted ROM. HEART:? Normal rate and regular rhythm, normal S1/S1, no m/r/g LUNGS:? CTAB, moving air well. No crackles or wheezes are heard. ABDOMEN: ?Soft, nontender, nondistended with good bowel sounds heard. BACK: No CVAT, no obvious deformity. EXTREMITIES: ?Without cyanosis, clubbing or edema. L stage 3 ecchymosis over deltoid, no restricted ROM, strength 5/5 of upper extremities. LE with multiple scabbing wounds over B/L shins, not actively bleeding, no drainage, no erythema, no calf TTP, no edema. NEUROLOGICAL: ?Grossly nonfocal. Alert and oriented, moving all 4 extremities. Observed to ambulate with with unsteady gait. Skin: ?Warm and dry without any rash. Medical Decision Making Medical Decision Making MDM Narrative: Patient is a 59-year-old male with medical history of HLD, T2DM, HTN, alcohol use disorder, who presented to ED by EMS due to lower extremity weakness. Patient states he was seen in the department 2 days ago (04/19) after fall and concerns of stroke. Patient reports he has had weakness and difficulty walking since his last visit. Patient states he was walking to the store prior to arrival when he felt progressive weakness of bilateral legs. Patient states he drinks ?a little bit of gin? daily, this is part of his routine. When asked to quantify how much and he has he states ?a little here, a little there? but will not identify an absolute amount of how much he drinks per day. Patient states he had ?a few drinks today?, but does not think that this is contributing to his weakness. VSS, in no acute distress, non toxic appearing. Using my clinical judgment, patient is under the influence of alcohol at this time. Patient has slowed with slight slurred speech, slow and grandiose movements of arms, ambulating with unsteady gait, alcohol halitosis present. Physical exam does not reveal LE pitting edema, erythema, cyanosis, calf tenderness. Strength is 5/5 of B/L lower and upper extremities. There is no facial drooping. EKG reveals bradycardia with normal rhythm, no ST elevation/depressions or T wave abnormalities indicative of acute cardiac process. Patient is concerned about his LE weakness, but is refusing medical work up. I needed to assess his electrolytes and current alcohol level along with glucose since patient is T2DM to work up LE weakness to rule out hypoglycemia or electrolyte derangment. Patient is vehlmently refusing workup and states I was here 2 days ago and got blood work and stuck everywhere, I am not getting blood work today?. I discussed with the patient the importance of checking his blood work today and that his values could change in 2 days which may be causing his progressive weakness. Patient is still refusing care. His girlfriend was in the lobby, I brought her back with patients permission to assess if the girlfriend was sober to drive the patient home. Girlfriend is sober, and attempted to speak to him again with me to allow for proper workup to ensure his blood work did not show any abnormality that needed intervention. Patient is still refusing. Patient is leaving AMA and understands this, I counseled the patient and his girlfriend on strict return precautions and to come back if he decided on getting a proper work up. Patient and his girlfriend are understanding of his status leaving AMA and are willing to leave AMA. Differential Diagnosis Differential Diagnoses: The differential diagnosis associated with the presentation includes electrolyte derangement hypoglycemia dysrhythmia alcohol intoxication dehydration Admission/Observation Consideration of admission/observation: Escalation of care including admission/observation considered Independent Interpretation I performed an independent interpretation of an: EKG Interpretation: I independently interpreted the EKG: Bradycardic rate of 56 beats per minute, normal sinus rhythm Vent. Rate : 56 BPM Atrial Rate : 56 BPM P-R Int : 166 ms QRS Dur : 90 ms QT Int : 438 ms P-R-T Axes : 47 -5 52 degrees QTcB Int : 422 ms Sinus bradycardia Otherwise normal ECG Independent Historian Clinical information obtained from an independent historian. History obtained from or confirmed by: Spouse (Girlfriend at bedside) External Record Review External record reviewed: Inpatient record, Office record and Outpatient record Chronic Conditions Patient?s care impacted by: Diabetes, Hypertension and Other (Alcohol use dis order) Discharge Plan Discharge Clinical Impression: Weakness Patient Disposition: Left Against Medical Advice Instructions: Weakness (ED) Additional Instructions: You came to the ED today due to weakness, difficulty walking. You had an EKG done in the department which did not show any acute cardiac processes. You refused any lab work or further assessment. I discussed with you the importance of checking blood work, and further physical exam to assess your medical condition, which you refused. Your girlfriend was in the department with you, who is sober and able to give you a safe ride home. I believe you need further workup including blood work, and physical exam. Please return to the emergency department if you experience worsening weakness, worsening difficulty walking, calf pain, chest pain, shortness of breath, nausea, vomiting, fevers over 100.4?, or any other new/worsening/concerning symptoms. Prescriptions: No Action atenolol 25 mg tablet 25 mg PO DAILY Qty: 90 0RF (DME) Accu-Chek Erika Plus test strp Strip See Rx Instructions .ROUTE .COMPLEX Qty: 100 0RF Dose Instruction: USE TO CHECK BLOOD SUGAR TWICE DAILY Rx Instructions: USE TO CHECK BLOOD SUGAR TWICE DAILY Humalog Mix 75-25(U-100)Insuln 100 unit/mL (75-25) suspension See Protocol subcut BID Protocol: Insulin Correction Scale Less than or equal to 110 ---- Give (units): 0 111 to 150 Give (units): 0 151 to 200 Give (units): 2 201 to 250 Give (units): 4 251 to 300 Give (units): 6 301 to 350 Give (units): 8 Greater than 350 Give (units): 10 Call MD if Blood Glucose > : 350 diphenhydramine HCl [Benadryl Allergy] 25 mg tablet 25 mg PO DAILY PRN (Reason: Allergies) omeprazole 20 mg capsule,delayed release(DR/EC) 20 mg PO DAILY pravastatin 80 mg tablet 80 mg PO DAILY Qty: 90 3RF Print Language: Hungarian
[2025-04-21 18:22] VITALS: BP 130/53; PULSE 56; RESP 18; TEMP 36.7; O2SAT 100
--- NOTE | 2025-04-21 18:33 | ECG_ITS ---
Test Reason : WEAKNESS Blood Pressure : */* mmHG Vent. Rate : 56 BPM Atrial Rate : 56 BPM P-R Int : 166 ms QRS Dur : 90 ms QT Int : 438 ms P-R-T Axes : 47 -5 52 degrees QTcB Int : 422 ms Sinus bradycardia Otherwise normal ECG When compared with ECG of 18-Apr-2025 20:53, Minimal criteria for Anteroseptal infarct are no longer Present Referred By: Rufina Carmen Electronically Signed By: Boris Munguia
--- NOTE | 2025-04-21 18:33 | PC.NURSE ---
59 M presents to ED for weakness in lower extremities, increased since he was seen earlier this week. Pt c/o 5/10 L shoulder pain from a fall previous to last ED visit. Pt appears to be under the influence of alcohol, sts last drink 1 hour ago, had a couple glasses of gin with juice. A+Ox4 and ambulatory but gait seems a little unsteady. Pt denies CP or SOB, RR even and unlabored.
--- NOTE | 2025-04-21 18:47 | MHC.EDTECH ---
Attempted to obtain labs, pt refused. Provider aware.
[2025-04-21 19:51] VITALS: BP 130/53; PULSE 56; RESP 18; TEMP 36.7; O2SAT 100
== END 2025-04-21 19:52 | disposition left against medical advice (07) ==
PROVIDERS: Emergency Provider Emergency Medicine Emergency Medical Services
DX: R42 Dizziness and giddiness (principal); I10 Essential (primary) hypertension; E78.5 Hyperlipidemia, unspecified; E11.8 Type 2 diabetes mellitus with unspecified complications
CPT/HCPCS: 93005; 99283; 99285

== ENCOUNTER → 2025-04-21 18:33 | Outpatient (BNV) | payer MEDICARE, SELFPAY | PROVIDERS: Emergency Provider Emergency Medicine Emergency Medical Services; Visit Provider Internal Medicine Cardiovascular Disease | DX: R00.1 Bradycardia, unspecified (principal) | CPT/HCPCS: 93010 ==

== ENCOUNTER 2025-05-29 20:31 | Emergency (ER) | payer MEDICARE, SELFPAY ==
[2025-05-29 20:39] VITALS: BP 106/40; BP 97/50; PULSE 56; PULSE 98; RESP 20; TEMP 37.2; O2SAT 100; BMI 25.2
[2025-05-29 20:55] LABS: Glucose, Whole Blood 50 mg/dL (60-115)
--- NOTE | 2025-05-29 21:02 | ED.GENADULT ---
HPI - General Adult General Chief complaint: General Medical Stated complaint: Hypoglycemia bgl *48, detoxing x 2days Time Seen by Provider: 05/29/25 21:02 Source: patient, family and EMS Mode of arrival: EMS Limitations: no limitations History of Present Illness ED Provider: Dr. Eli Payton HPI narrative: 59-year-old male with a history of alcohol use disorder, insulin-dependent diabetes, hypertension, hyperlipidemia presenting with hypoglycemia from home. Patient was brought in by ambulance with reports of hypoglycemia as low as 38. He was given glucose by EMS and ate a sandwich as well as orange juice here in the emergency department. Patient reports that around 4:00 p.m. his blood sugar was 240. He took 20 units of Humalog. Later in the afternoon he started feeling sweaty and his girlfriend reported that he passed out. EMS was called to find his blood sugar at 48. He was given oral glucose and a repeat was 38. Patient reports he has been detoxing from alcohol for the last 2 days. He did have some gin with grape soda earlier this tonight. States that he has been trying to wean himself off of alcohol. He also reports a wound on his foot from his right 2nd toe ?hammertoe? that has been slow to heal. He has been taking doxycycline and Keflex for this for the last 10 days or so. Admits that the wound is improving significantly. Denies other illness including fever, cough or cold-type symptoms, chest pain, difficulty breathing, abdominal pain, nausea or vomiting. Related Data Home Medications ?Medication ?Instructions ?Recorded ?Confirmed diphenhydramine HCl 25 mg tablet 25 mg PO DAILY PRN Allergies 11/22/21 04/19/25 (Benadryl Allergy) omeprazole 20 mg capsule,delayed 20 mg PO DAILY 11/22/21 04/19/25 release insulin lispro protamine-lispro See Protocol subcut BID 04/19/25 04/19/25 100 unit/mL (75-25) subcutaneous susp (Humalog Mix 75-25(U-100)Insuln) Previous Rx's ?Medication ?Instructions ?Recorded atenolol 25 mg tablet 25 mg PO DAILY #90 tabs 03/08/25 blood sugar diagnostic (Accu-Chek #100 strips 03/15/25 Erika Plus test strips) pravastatin 80 mg tablet 80 mg PO DAILY #90 tabs 03/16/25 Allergies Allergy/AdvReac Type Severity Reaction Status Date / Time aspirin (ASPIRIN) Allergy Unknown HIVES Verified 05/29/25 20:41 Review of Systems Review of Systems: as per HPI, full review of systems performed and negative but for the above mentioned pertinent positives and negatives. [facility] Past Medical History Attestation statement: The following information was validated with the patient. [facility] Narrative: Hypertension, hyperlipidemia, insulin-dependent diabetes, alcohol use disorder Source: old records reviewed Medical History Hyperlipidemia Diabetes HTN (hypertension) Surgical History Hx of removal of cyst History of bunionectomy Family History Family History Father No problems noted. Mother No problems noted. Social History Social History Housing: House Alcohol intake: current Alcohol intake frequency: 3 or more drinks per day Alcohol type: hard liquor Patient Tobacco Use Status: Never used Tobacco Tobacco use type: Cigarette Cigarette Packs Per Day: 0.5 Cigarettes Per Day: 10 Smoked in Last 30 Days: Yes e-Cigarette/Vaping Use: Never Used Second Hand Smoke Exposure: Yes Use of substances other than those prescribed or required for medical reasons: No service: No Current occupational status: disabled Cognitive needs: No Hearing needs: No Vision needs: Yes (Glasses) Physical Exam ED Exam Exam: GENERAL: Chronically ill-Appearing, conversant, no acute distress. SKIN: Normal skin color for ethnicity, warm, dry, no rashes noted, healing diabetic ulcer overlying the distal MTP joint of the right 2nd toe. HEENT: Normocephalic, atraumatic, no stridor, posterior oropharynx nonerythematous, dentition intact, EOMI. NECK: Soft, supple, full ROM, midline structures nontender, no step-offs, no deformities, no lymphadenopathy. CHEST: Heart regular rate and rhythm, no murmurs, symmetric chest rise and fall. PULMONARY: Clear to auscultation bilaterally, no labored breathing, no wheezes/rhales/rhonchi. ABDOMINAL: Soft, nondistended, nontender, positive bowel sounds in all quadrants. : Deferred. MUSCULOSKELETAL: Normal tone, full range of motion, no deformities, no peripheral edema. NEURO: Alert and oriented x3, CN II through XII intact, equal strength and sensation bilateral upper and lower extremities, no focal neurologic deficits. PSYCHIATRIC: Somewhat belligerent, fluid speech, good eye contact and cantankerous Vital Signs: Vital Signs - 24 hr 05/29/25 20:39 05/29/25 21:16 Temperature 98.9 F Pulse Rate 56 57 Respiratory Rate 20 16 Blood Pressure 106/40 L 109/56 L Pulse Oximetry 100 98 Oxygen Delivery Method Room Air Room Air BMI result Body Mass Index 25.2 Medical Decision Making Medical Decision Making MDM Narrative: 59-year-old male insulin-dependent diabetic presenting with hypoglycemia from home. Differential diagnosis includes insulin reaction, or oral intake, alcohol use disorder, infectious process, among others. Patient is refusing any further care upon my evaluation. He is refusing lab work, IVs and further food or dextrose. Patient is clinically sober, has no significant distracting injury, and they appear to have intact judgment, insight and reason. In my clinical opinion they have medical decision making capacity. Signs and symptoms discussed with patient and [facility] She agrees he is at his mental baseline. They express understanding of signs/symptoms as explained to them and they repeated it back to me. Risks and benefits discussed with patient to include but not limited to , terminal press operator disability or loss of significant bodily functions. Alternatives to treatment plan discussed and offered. Patient encouraged to return should they change their mind. Close followup strongly encouraged in case they choose not to return. The patient wants leave Against Medical Advise at this time Differential Diagnosis Differential Diagnoses: The differential diagnosis associated with the presentation includes (as above) Admission/Observation Consideration of admission/observation: Escalation of care including admission/observation considered Lab Data [facility] Lab Attestation statement: I reviewed the patient's lab results. Labs: Lab Results 05/29/25 05/29/25 05/29/25 Range/Units 20:51 21:05 21:18 POC Glucose 50 L* 57 L* 66 (60-115) mg/dL Independent Historian Clinical information obtained from an independent historian. History obtained from or confirmed by: Spouse Chronic Conditions Patient?s care impacted by: Diabetes, Hypertension and Other (alcohol use disorder) Social Determinants Patient?s care significantly limited by Social Determinants of Health including: Alcoholism and drug addiction in family Discharge Plan Discharge Clinical Impression: Hypoglycemia associated with diabetes, Acute hypotension Patient Disposition: Left Against Medical Advice Instructions: Hypoglycemia in a Person with Diabetes (ED), Hypotension (ED) Additional Instructions: Do not take your blood pressure medication today. Try to eat more food as to increase your blood sugars. They are running far too low. Return to the emergency department at any time and for any reason. Call 911 with any medical emergency. Prescriptions: No Action atenolol 25 mg tablet 25 mg PO DAILY Qty: 90 0RF (DME) Accu-Chek Erika Plus test strp Strip See Rx Instructions .ROUTE .COMPLEX Qty: 100 0RF Dose Instruction: USE TO CHECK BLOOD SUGAR TWICE DAILY Rx Instructions: USE TO CHECK BLOOD SUGAR TWICE DAILY Humalog Mix 75-25(U-100)Insuln 100 unit/mL (75-25) suspension See Protocol subcut BID Protocol: Insulin Correction Scale Less than or equal to 110 ---- Give (units): 0 111 to 150 Give (units): 0 151 to 200 Give (units): 2 201 to 250 Give (units): 4 251 to 300 Give (units): 6 301 to 350 Give (units): 8 Greater than 350 Give (units): 10 Call MD if Blood Glucose > : 350 diphenhydramine HCl [Benadryl Allergy] 25 mg tablet 25 mg PO DAILY PRN (Reason: Allergies) omeprazole 20 mg capsule,delayed release(DR/EC) 20 mg PO DAILY pravastatin 80 mg tablet 80 mg PO DAILY Qty: 90 3RF Stand Alone Forms: Against Medical Advice Print Language: Welsh
[2025-05-29 21:16] VITALS: BP 109/56; PULSE 57; RESP 16; O2SAT 98
--- NOTE | 2025-05-29 21:21 | PC.NURSE ---
Patient is alert and oriented x4. Patient had 2 orang juices, sun butter sandwich. Repeat POC 66. BP low 8341. Dr Payton called to bedside. Patient refused lab draw, IV line placement, any treatments. Patient reports he is DNR/DNI. Patient's bren Kwok at bedside, she confirms that patient is alert and oriented x4, he is in his baseline mental status. Patient requesting to leave AMA. Repeat POC 66, BP 109/56.
[2025-05-29 21:28] LABS: Glucose, Whole Blood 66 mg/dL (60-115)
[2025-05-29 21:28] LABS: Glucose, Whole Blood 57 mg/dL (60-115)
[2025-05-29 21:38] VITALS: BP 109/56; PULSE 57; RESP 16; TEMP 36.7; O2SAT 98
== END 2025-05-29 21:39 | disposition left against medical advice (07) ==
LOC: HO.ED 21:35
PROVIDERS: Emergency Provider Emergency Medicine
DX: I95.9 Hypotension, unspecified (principal); E11.649 Type 2 diabetes mellitus with hypoglycemia without coma; Z79.4 Long term (current) use of insulin; R55 Syncope and collapse; I10 Essential (primary) hypertension; E78.5 Hyperlipidemia, unspecified; Z53.29 Procedure and treatment not carried out because of patient's decision for other reasons
CPT/HCPCS: 82947; 99282; 99284

== ENCOUNTER 2025-07-15 09:09 | Outpatient (REF) | payer MEDICARE, SELFPAY ==
[2025-07-15 09:48] LABS: Appearance Urine Clear; Glucose Urine UA 500 mg/dL (Negative); PH 7.5 (5.0-9.0); Specific Gravity - Urine 1.015 (1.005-1.025); UMIC TRIGGER UACC YES
[2025-07-15 10:02] LABS: Hematocrit 34.5 % (42.0-52.0); Imm Gran Abs Auto 0.01 X10*3/uL (0.00-0.03); Imm Gran Pct Auto 0.2 % (0.0-0.4); Lymphocytes Absolute Auto 0.9 X10*3/uL (1.2-4.9); MANUAL DIFF FLAG SCAN; Mean Corpuscular Volume 96.4 fL (80.0-98.0); NRBC Abs Auto 0.000 X10*3/uL (0.0-0.012); NRBC Pct Auto 0.0 /100WBC (0.0-0.2); Platelet Count 167 X10*3/uL (160-400); Red Blood Count 3.58 X10*6/uL (4.60-5.80); SCAN SMEAR FLAG 1; White Blood Count 4.9 X10*3/uL (4.8-10.8)
[2025-07-15 10:43] LABS: Microalbum/Creatinine Ratio Ur 100.9 ug/mg cr (<30)
[2025-07-15 11:13] LABS: Alanine Aminotransferase 41 U/L (0-40); Albumin Level 4.5 g/dL (3.5-5.0); Alkaline Phosphatase 88 U/L (39-117); Anion Gap 12 (12-20); Aspartate Amino Transferase 85 U/L (5-37); Blood Urea Nitrogen 13 mg/dL (9-16); Calcium 10.1 mg/dL (8.4-10.2); Carbon Dioxide 28 mmol/L (22-29); Chloride 99 mmol/L (96-108); Cholesterol 157 mg/dL (<200); Estimated Glomerular Filt Rate > 60; HDL Cholesterol 98 mg/dL (>40); Iron 102 mcg/dL (45-160); Percent Iron Saturation 37 % (15-50); Potassium 4.3 mmol/L (3.3-5.1); Sodium 135 mmol/L (135-145); Total Iron Binding Capacity 276 mcg/dL (228-428); Total Protein 7.9 g/dL (6.5-8.0); Triglycerides 53 mg/dL (<150); Unsaturated Iron Binding 174 ug/dL
[2025-07-15 11:16] LABS: Hemoglobin 11.6 g/dl (14.0-18.0)
[2025-07-15 11:17] LABS: Mean Corpuscular Hemoglobin 32.4 pg (27.0-33.0)
[2025-07-15 11:18] LABS: Mean Corpuscular HGB Conc 33.6 g/dl (31.0-36.0)
[2025-07-15 11:37] LABS: Folate 5.4 ng/mL (> or = 4.0); Vitamin B12 381 pg/mL (200-900)
[2025-07-21 14:13] LABS: Testosterone, Free 36.1 pg/mL (35.0-155.0)
== END 2025-07-15 09:10 | disposition home or self-care (01) ==
LOC: HO.LAB 09:09
DX: E10.65 Type 1 diabetes mellitus with hyperglycemia (principal); I10 Essential (primary) hypertension; D64.9 Anemia, unspecified; R68.82 Decreased libido; Z13.21 Encounter for screening for nutritional disorder
CPT/HCPCS: 36415; 80053; 80061; 81001; 82043; 82306; 82570; 82607; 82746; 83036; 83540; 84402; 84403; 84443; 85025

== ENCOUNTER 2025-07-18 20:59 | Emergency (ER) | payer MEDICARE, SELFPAY ==
[2025-07-18 21:04] VITALS: BP 128/58; PULSE 65; RESP 18; TEMP 36.3; O2SAT 99; BMI 25.4
--- NOTE | 2025-07-18 22:42 | PC.NURSE ---
t/w notified by registration pt LWBS.
== END 2025-07-18 22:42 | disposition left against medical advice (07) ==
PROVIDERS: Emergency Provider Emergency Medicine
DX: M79.675 Pain in left toe(s) (principal); Z53.21 Procedure and treatment not carried out due to patient leaving prior to being seen by health care provider
CPT/HCPCS: 99281

== ENCOUNTER 2025-07-19 10:55 | Outpatient (AMB) | payer OTHER, SELFPAY ==
[2025-07-19 11:00] VITALS: BP 146/64; PULSE 57; RESP 18; TEMP 36.2; O2SAT 95; BMI 25.4
--- NOTE | 2025-07-19 11:00 | A.OFFPC_ITS ---
Vital Signs 07/19/25 11:00 Height 5 ft 6 in Weight 157 lb 2 oz BMI 25.4 BP 146/64 H Blood Pressure Location Lt brachial Position Sitting Respiration 18 Pulse 57 Pulse Source Pulse Oximeter Temp 97.1 F Temp Source Temporal Artery Scan Pulse Oximetry (%) 95 Oxygen Delivery Method Room Air Intake Visit Reasons: annual exam - see comments Pipelines Manager Required: No Accompanied by: Self / Same As Patient Allergies aspirin (ASPIRIN) Allergy (Unknown, Verified 07/19/25 11:09) HIVES Medication List - Last Reconciled 07/19/25 by MADELINE Caballero atenolol 25 mg PO DAILY blood sugar diagnostic (Accu-Chek Erika Plus test strips) USE TO CHECK BLOOD SUGAR TWICE DAILY diphenhydramine HCl (Benadryl Allergy) 25 mg PO DAILY PRN insulin lispro protamin-lispro 100 unit/mL (75-25) (Humalog Mix 75-25(U-100)Insuln) 35 units (0.35 mL) subcut BID omeprazole 20 mg PO DAILY pravastatin 80 mg PO DAILY Tobacco use date assessed: 07/19/25 Dental Screening Dental Screen Date: 07/19/25 Did you have a dental visit in the last 12 months?: No Did you have a dental problem in the last 6 months where you did not have access to dental care?: No Was dental information given to patient?: No HPI annual exam - see comments HPI Details Dentist: reports that he pulls his own teeth Eye: Reports that he has to make an appointment Snellen: Right: Left: Corrected vision: yes- STI screening: Colonoscopy: declines Pap Smer:n/a PHQ-9: Flu:no COVID:no Tdap:reports that he had this in the hospital few years ago Diet:reular Exercise:walking The patient is presenting with a wound on his right great toe The blister developed after wearing new shoes, resulting into an open blister. Initial self-care included antibiotics and a Band-Aid, but the wound bled through, necessitating gauze and tape. The patient left the emergency room after a long wait without being seen, despite noticing a red line towards his ankle, which has since improved. He has diabetes mellitus, managed with insulin, and has experienced significant blood sugar fluctuations. The patient also has stable anemia and a history of vitamin D deficiency. He maintains an active lifestyle with gardening and weightlifting and consumes alcohol in moderation. left great toe: open blister. swollen and red. Pain yesterday but not today. [facility] Medical History Hyperlipidemia Diabetes HTN (hypertension) Surgical History Hx of removal of cyst History of bunionectomy Family History Father No problems noted. Mother No problems noted. Social History Housing: House Alcohol intake: current Alcohol intake frequency: 3 or more drinks per day Alcohol type: hard liquor Patient Tobacco Use Status: Never used Tobacco Tobacco use type: Cigarette Cigarette Packs Per Day: 0.5 Cigarettes Per Day: 10 e-Cigarette/Vaping Use: Never Used Second Hand Smoke Exposure: Yes service: No Current occupational status: disabled Cognitive needs: No Hearing needs: No Vision needs: Yes (Glasses) Questionnaire Thrive Questionnaire Date Thrive assessed: 11/16/24 I am a: Patient What is your living situation today?: I have a steady place to live Within the past 12 months, did the food you bought not last and you didn't have the money to get more?: I choose not to answer this question Within the past 12 months, did you worry whether your food would run out before you got money to buy more?: I choose not to answer this question Do you have trouble paying for medicines?: No Do you have trouble getting transportation to medical appointments?: No Do you have trouble paying your heating and electricity bill?: I choose not to answer this question Do you have trouble taking care of your child, family member or friend?: No Do you have trouble with day-to-day activities such as bathing, preparing meals, shopping, managing finances, etc.?: No Are you currently unemployed and looking for a job?: No Are you interested in more education?: No Please select the resources that you would like help with: None Currently or been in a relationship where the following occur: I choose not to answer THRIVE Score: 0 ROLO-7 AMB Questionnaire ROLO-7 Date ROLO - 7 assessed: 11/16/24 Source: Developed by Drs. Aime Kearney, Jeanine Hogan, Vicente Vizcarra and colleagues, with an educational leigh ann from [employer]. Review of Systems Const Denies headache(s) Eyes Denies loss of vision ENT Denies vertigo, Denies dizziness, Denies headache(s) and Denies sore throat Card Denies chest pain, Denies leg edema and Denies lightheadedness Resp Denies cough, Denies hemoptysis and Denies wheezing GI Denies abdominal pain, Denies melena, Denies constipation, Denies diarrhea and Denies vomiting Denies dysuria, Denies urinary frequency and Denies urinary urgency Musc Denies arthralgias, Denies joint swelling, Denies numbness and Denies tingling Skin/Breast Reports wounds (right great toe open area) Neuro Denies Abnormal speech present, Denies behavioral changes, Denies vertigo, Denies dizziness, Denies headache(s), Denies loss of vision, Denies memory loss, Denies numbness and Denies tingling Psych Denies anxiety, Denies behavioral changes, Denies depression, Denies memory loss and Denies panic attacks Isai/Lymph Denies easy bleeding and Denies easy bruising Aller/Immun Denies wheezing Physical exam (Primary Care) Vital Signs: Last Vital Signs Temp 97.1 F 07/19/25 11:00 Pulse 57 07/19/25 11:00 Resp 18 07/19/25 11:00 BP 146/64 H 07/19/25 11:00 Pulse Ox 95 07/19/25 11:00 Oxygen Delivery Method Room Air 07/19/25 11:00 BMI result Body Mass Index 25.4 Tobacco/Smoking Status: Tobacco use Status Tobacco use date assessed 07/19/25 07/19/25 11:06 Patient Tobacco Use Status Never used Tobacco 07/19/25 11:06 Tobacco use type Cigarette 07/19/25 11:06 e-Cigarette/Vaping Use Never Used 07/19/25 11:06 Thrive Assessment: Date of Thrive Assessment Date Thrive assessed 11/16/24 07/19/25 11:06 Currently or been in a relationship where the following occur: I choose not to answer Const General: healthy appearing, no acute distress, alert and awake Nutritional Appearance: well nourished Orientation/consciousness: oriented to person, oriented to place and oriented to time HENMT Ears: TM's normal bilaterally General nose exam: Normal nasal mucous membranes and turbinates present Eyes Conjunctivae: conjunctivae normal Sclerae: sclerae normal Pupils: Equal, round and reactive pupils present Neck Neck: Yes no lymphadenopathy and Yes no JVD Thyroid: Thyroid normal Carotids: no bruits Resp Effort & Inspection: normal respiratory effort and not tachypneic Auscultation: no crackles, no rales, no rhonchi and no wheezes Cardio Rate: regular rate Rhythm: regular rhythm Heart sounds: no murmurs and normal S1 and S2 GI Palpation (GI): Soft to palpation, nontender, no hepatomegaly and no splenomegaly Auscultation: normal bowel sounds Skin General skin exam: dry skin Wounds: wounds noted (right great toe open blistered area, toe is edematous and erythematous) Neuro General: oriented to person, oriented to place and oriented to time Cranial nerves: Yes Equal, round and reactive pupils present Speech: No Abnormal speech present Gait exam (Neuro): Normal gait present Motor exam (neuro): no tremor noted Deep tendon reflexes (DTR's): Right triceps reflex intensity grade: 2+, Left triceps reflex intensity grade: 2+, Rt Biceps (C5, C6): 2+, Left biceps reflex intensity grade: 2+, Right brachioradialis reflex intensity grade: 2+, Left brachioradialis reflex intensity grade: 2+, Right patellar reflex intensity grade: 2+ and Left patellar reflex intensity grade: 2+ Extrem Right upper extremity: full ROM Left upper extremity: full ROM Right lower extremity: full ROM; no edema Left lower extremity: full ROM; no edema Psych Mental Status: mental status grossly normal Speech and movement: Normal speech and movement present Affect: normal affect Attitude: cooperative Thought process: Normal thought process present Results Reviewed Results Reviewed: Laboratory Tests 07/15/25 07/15/25 09:18 09:24 WBC 4.9 RBC 3.58 L Hgb 11.6 L Hct 34.5 L MCV 96.4 MCH 32.4 MCHC 33.6 RDW 12.9 Plt Count 167 MPV 9.5 Sodium 135 Potassium 4.3 Chloride 99 Carbon Dioxide 28 Anion Gap 12 BUN 13 Creatinine 1.15 Estimated GFR > 60 Fasting Glucose 72 Estimat Average Glucose 154 Hemoglobin A1c % 7.0 H Calcium 10.1 D Iron 102 TIBC 276 % Saturation 37 Unsat Iron Binding 174 Total Bilirubin 0.8 AST 85 H ALT 41 H Alkaline Phosphatase 88 Total Protein 7.9 Albumin 4.5 Triglycerides 53 Cholesterol 157 LDL Cholesterol, Calc 49 HDL Cholesterol 98 Vitamin B12 381 25-OH Vitamin D Total 19.8 L Folate 5.4 TSH 1.18 Urine Color Yellow Urine Appearance Clear Urine pH 7.5 Ur Specific [place] 1.015 Urine Protein 30 (1+) H Urine Glucose (UA) 500 H Urine Ketones Negative Urine Blood Negative Urine Nitrite Negative Ur Leukocyte Esterase Negative Urine RBC 0-2 Urine WBC 0-5 Ur Squamous Epith Cells 0-2 Urine Bacteria None Seen Hyaline Casts 0-2 Urine Creatinine 78.29 Urine Microalbumin 79.0 Microalb/Creat Ratio 100.9 H Coding Level of Care Code Est Pt Prev Care 40-64y(80104) Diagnoses Annual physical exam Z00.00 Hypertension, unspecified type I10 Hypertension type: unspecified Uncontrolled type 1 diabetes mellitus with hyperglycemia E10.65 Glycemic state: with hyperglycemia Low libido R68.82 Blister (nonthermal), right great toe, initial encounter S90.421A Anemia, unspecified type D64.9 Anemia type: unspecified type Single skin nodule R22.9 Hyponatremia E87.1 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 Patient reports that he pulls his own teeth and he is not interested seeing a dentist. Reports that he has to make an eye appointment. Reports that he never had a colonoscopy he is not interested in getting this done. He is up-to-date with his Tdap vaccine, this was given to him few years ago in the hospital. (2) HTN (hypertension): Code(s): I10 - Essential (primary) hypertension Category: Medical Qualifiers: Hypertension type: unspecified Qualified Code(s): I10 - Essential (primary) hypertension Plan: Blood pressure 146/64-goal is systolic less than 140mg hg Reinforced low-salt, alcohol, caffeine intake Continue atenolol 25 mg daily (3) Diabetes mellitus type 1, uncontrolled: Code(s): E10.65 - Type 1 diabetes mellitus with hyperglycemia Category: Medical Qualifiers: Glycemic state: with hyperglycemia Qualified Code(s): E10.65 - Type 1 diabetes mellitus with hyperglycemia Plan: a1c 7% goal less than 7%, previous a1c was 8.0% He is currently on insulin lispro protamin-lispro 100 unit/ml (75-25) 35 units BID insulin regimen-per patient, he has his own sliding scale that was not ordered by any provider Declines endocrinology referral- We will rechecked fasting glucose and A1c in 4 months (4) Low libido: Code(s): R68.82 - Decreased libido Category: Medical Plan: Reports trying viagra and different medication in the past unsuccessfully He is requesting to get is testosterone check testosterone was ordered; completed but has not resulted as yet. (5) Blister (nonthermal), right great toe, initial encounter: Code(s): S90.421A - Blister (nonthermal), right great toe, initial encounter Category: Medical Plan: Open blister on right great toe. The entire toe is edematous and erythematous. Reports that this was painful before not anymore. Doxycycline 100mg bid x 10 days ordered. Mupirocin 2 % topical bid ordered. Wound cleanser ordered for the patient to clean wound and apply bandaid after applying ointment. The patient declines wound clinic referral. Discussed risk with patient due to his diabetes. Reinforced following up for the office if the wound isn't getting better, lian. (6) Anemia: Code(s): D64.9 - Anemia, unspecified Category: Medical Qualifiers: Anemia type: unspecified type Qualified Code(s): D64.9 - Anemia, unspecified Plan: longstanding anemia noted on multiple blood work. Suspected folate vs b12 deficiency due to alcohol usage. However, an iron profile was checked, as well. Normal iron panel, B12, and folate noted. The patient anemia is stable at this time and might be due to chronic conditions. (7) Single skin nodule: Comment: 20 min reviewing chart eval patient and documenting Code(s): R22.9 - Localized swelling, mass and lump, unspecified Category: Medical Plan: Patient has denies swelling to left side of his posterior neck. Reports that this has been there for a long time and has not changed. 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 Encouraged decreasing alcohol intake. (11) Hyperlipidemia: Code(s): E78.5 - Hyperlipidemia, unspecified Category: Medical Qualifiers: Hyperlipidemia type: unspecified Qualified Code(s): E78.5 - Hyperlipidemia, unspecified Plan: Triglycerides 53, total cholesterol 157, LDL 49, HDL 98 Reinforced low-cholesterol diet and activity as tolerated Continue pravastatin 80 mg daily We will recheck lipid panel in 4 months Orders: Orders Vitamin D 25-OH Total 4 Months D64.9 - Anemia, unspecified, E10.65 - Type 1 diabetes mellitus with hyperglycemia, E78.5 - Hyperlipidemia, unspecified, F10.929 - Alcohol use, unspecified with intoxication, unspecified, I10 - Essential (primary) hypertension, I16.9 - Hypertensive crisis, unspecified TSH reflex Free T4 4 Months D64.9 - Anemia, unspecified, E10.65 - Type 1 diabetes mellitus with hyperglycemia, E78.5 - Hyperlipidemia, unspecified, F10.929 - Alcohol use, unspecified with intoxication, unspecified, I10 - Essential (primary) hypertension, I16.9 - Hypertensive crisis, unspecified Comprehensive [place]. Panel Fast 4 Months D64.9 - Anemia, unspecified, E10.65 - Type 1 diabetes mellitus with hyperglycemia, E78.5 - Hyperlipidemia, unspecified, F10.929 - Alcohol use, unspecified with intoxication, unspecified, I10 - Essential (primary) hypertension, I16.9 - Hypertensive crisis, unspecified Vitamin B12 and Folate 4 Months D64.9 - Anemia, unspecified, E10.65 - Type 1 diabetes mellitus with hyperglycemia, E78.5 - Hyperlipidemia, unspecified, F10.929 - Alcohol use, unspecified with intoxication, unspecified, I10 - Essential (primary) hypertension, I16.9 - Hypertensive crisis, unspecified UA CC w/rflx Micro + Cult 4 Months D64.9 - Anemia, unspecified, E10.65 - Type 1 diabetes mellitus with hyperglycemia, E78.5 - Hyperlipidemia, unspecified, F10.929 - Alcohol use, unspecified with intoxication, unspecified, I10 - Essential (primary) hypertension, I16.9 - Hypertensive crisis, unspecified Lipid Panel 4 Months D64.9 - Anemia, unspecified, E10.65 - Type 1 diabetes mellitus with hyperglycemia, E78.5 - Hyperlipidemia, unspecified, F10.929 - Alcohol use, unspecified with intoxication, unspecified, I10 - Essential (primary) hypertension, I16.9 - Hypertensive crisis, unspecified Complete Blood Count Auto Diff 4 Months D64.9 - Anemia, unspecified, E10.65 - Type 1 diabetes mellitus with hyperglycemia, E78.5 - Hyperlipidemia, unspecified, F10.929 - Alcohol use, unspecified with intoxication, unspecified, I10 - Essential (primary) hypertension, I16.9 - Hypertensive crisis, unspecified Medications: New benzethonium chloride 0.1% (Antiseptic Wound-Skin) 1 appl topical BID-TID PRN 237 mL 0RF odor mupirocin 2% 1 appl topical BID 22 grams 0RF 14 days doxycycline monohydrate 100 mg PO BID 20 tabs 0RF 10 days
== END 2025-07-19 11:56 | disposition home or self-care (01) ==
LOC: HO.HMCH 10:55
DX: Z00.00 Encounter for general adult medical examination without abnormal findings (principal); I10 Essential (primary) hypertension; E10.65 Type 1 diabetes mellitus with hyperglycemia; R68.82 Decreased libido; S90.421A Blister (nonthermal), right great toe, initial encounter; D64.9 Anemia, unspecified; R22.9 Localized swelling, mass and lump, unspecified; E87.1 Hypo-osmolality and hyponatremia; L71.8 Other rosacea; F10.10 Alcohol abuse, uncomplicated; E78.5 Hyperlipidemia, unspecified

== ENCOUNTER 2025-08-18 19:15 | Emergency (ER) | payer MEDICARE, SELFPAY ==
--- NOTE | ~2025-08-18 | XR_ITS ---
CLINICAL HISTORY: big toe DM ulcer --- Additional Notes or Special Instructions: wait for glucose to improve 3 view left foot Comparison: CR - XR FOOT LT MIN 3V - 11/05/24 17:03 EST Findings: Alignment of the Lisfranc articulation is anatomic. No acute fractures. Mild valgus alignment at the IP joint of the great toe as seen previously. There soft tissue swelling of the distal aspect of the great toe. No soft tissue gas or bony destructive change identified. IMPRESSION: Soft tissue swelling of the great toe without radiographic findings of osteomyelitis This document has been electronically signed by: Wally Goetz MD on 08/19/2025 01:10:30
[2025-08-18 19:23] VITALS: BP 112/53; BP 122/60; PULSE 54; PULSE 71; RESP 18; TEMP 36.3; O2SAT 100; O2SAT 98; BMI 26.3
--- NOTE | 2025-08-18 22:30 | ED_ITS ---
HPI - Back Pain/Injury General Chief Complaint: Back Pain/Injury Stated Complaint: NECK/LEG PAIN Time Seen by Provider: 08/18/25 22:26 History of Present Illness ED Provider: angel HPI Narrative: 60 patient came in by EMS he is a diabetic insulin-dependent with some chronic several week-long pain in the neck and back. He has felt somewhat generally weak over the past few weeks particularly past few days. Complained of lower lumbar pain radiating to the buttock bilaterally but has been able to ambulate perform ADLs. The partner later arrived and helped corroborate some additional history including that the patient does not eat very much maybe 1 meal a day and he reports that ?I snack throughout the day ?. But still takes sliding scale insulin. Denies flank pain dysuria or decreased urine production. No abdominal pain fever or chills. Does complain of the left toe ulcer seems like the PCP has been treating this Related Data Home Medications ?Medication ?Instructions ?Recorded ?Confirmed diphenhydramine HCl 25 mg tablet 25 mg PO DAILY PRN Al lergies 11/22/21 07/19/25 (Benadryl Allergy) omeprazole 20 mg capsule,delayed 20 mg PO DAILY 07/19/25 release Previous Rx's ?Medication ?Instructions ?Recorded pravastatin 80 mg tablet 80 mg PO DAILY #90 tabs 02/04 atenolol 25 mg tablet 25 mg PO DAILY #90 tabs 05/14 11/06 insulin lispro protamine-lispro 35 unit (0.35 mL) subc ut BID #10 mL 06/14/25 100 unit/mL (75-25) subcutaneous susp (Humalog Mix 75-25(U-100)Insuln) blood sugar diagnostic (Accu-Chek #100 strips 07/15/25 Erika Plus test strips) benzethonium chloride 0.1 % 1 appl topical BID-TID PRN odor 07/19/25 topical cleanser (Antiseptic #237 mL Wound-Skin) doxycycline monohydrate 100 mg 100 mg PO BID 10 days # 20 tabs 07/19/25 tablet mupirocin 2 % topical ointment 1 appl topical BID 14 d ays #22 07/19/25 grams Allergies Allergy/AdvReac Type Severity Reaction Status Date / Time aspirin (ASPIRIN) Allergy Unknown HIVES Verified 08/18/25 19:33 [facility] Past Medical History Medical History Hyperlipidemia Diabetes HTN (hypertension) Surgical History Hx of removal of cyst History of bunionectomy Family History Family History Father No problems noted. Mother No problems noted. Social History Social History Housing: House Alcohol intake: current Alcohol intake frequency: 3 or more drinks per day Alcohol type: hard liquor Patient Tobacco Use Status: Never used Tobacco Tobacco use type: Cigarette Cigarette Packs Per Day: 0.5 Cigarettes Per Day: 10 e-Cigarette/Vaping Use: Never Used Second Hand Smoke Exposure: Yes service: No Current occupational status: disabled Cognitive needs: No Hearing needs: No Vision needs: Yes (Glasses) Physical Exam 2 Exam: Exam: EXAM: Gen: Alert, awake initial examination slightly slow speech looks a little bit clammy. Pertinent was at the bedside said this is not his usual self. Head: Atraumatic Eyes: Anicteric, Normal conjunctiva. ENT: Moist mucosa, no pallor. ? Neck: Supple. Skin: ?No observable rash or bruising on exposed or examined skin Respiratory: Breathing comfortably, No distress.Clear to auscultation bilaterally, symmetric chest expansion, No wheeze, rales, ronchi. Cardiovascular: Regular rate and rhythm. No murmurs or rub. Well perfused periphery, warm extremities. No edema. ? Abdominal: No focal tenderness. Soft, no objective distension. No palpable masses or obvious organomegaly. ?No guarding, no rebound tenderness or other peritoneal findings. : No flank tenderness. Neuro: Alert. Gross movement of all extremities intact. ? Psych: Calm. Cooperative. MSK: No grossly visible deformity. Nontender C-spine or thoracic and lumbar spine no bruising to the back or crepitus. Left toe chronic appearing probably diabetic ulcer left medial toe no drainage no erythema. Vital signs: See flowsheet Vital Signs: Vital Signs: Last Vital Signs Temp 98 F 08/19/25 04:24 Pulse 67 08/19/25 04:24 Resp 16 08/19/25 04:24 BP 160/62 H 08/19/25 04:24 Pulse Ox 99 08/19/25 04:24 O2 Del Method Room Air 08/19/25 04:24 BMI result Body Mass Index 26.3 Course Reevaluation(s) Reevaluation #1: 11:02 PM 08/18[facility]20[facility] Acute to the bedside to initially evaluate this patient had a proximally 22:53 I found the patient staring at me kind of blankly he was clammy and his partner who had not been at the bedside until about 20 minutes before my evaluation told me that she felt he was acting little bit strange at glassy eyes. So I had them do a stat point of care glucose which was 13. We immediately gave him apple juice and oral dextrose and also ordered D50. We will get a line get lab work. Patient is on insulin apparently with the EMS had a glucose of 120. Reevaluation #2: [place]: The patient was signed out to me at change of shift. The patient is a 60-year-old male with a history of type 1 diabetes who had presented to the emergency department several hours earlier complaining of diffuse body pains. After arriving in the emergency room he also became hypoglycemic. The patient has hypoglycemia was treated. He had blood work that showed a significant acute kidney injury. He was also somewhat hypokalemic. His potassium was repleted and he was given 2 L of crystalloid. He was signed out to me pending the results of a repeat basic metabolic panel. The patient's repeat basic metabolic panel showed only slight improvement in his renal function. Initially his creatinine has been 3.04 and his BUN 31. The repeat values were 2.9 and 28. His potassium had normalized. Based on the fact that his repeat labs showed only slight improvement in his renal function I thought the patient would need more IV fluids and I ordered 2 additional L of crystalloid. However the patient had no wish to stay in the emergency department. He was feeling considerably better. He was eager to go home. He says that he can drink fluids at home and would much prefer to drink fluids at home than stay in the emergency room for additional hydration. The patient's was at the bedside. I explained to the patient and to his that I felt that the degree of kidney abnormalities on his blood work was sufficiently concerning that he should stay in the emergency room for additional IV hydration. However, despite my efforts to convince the patient stay in the hospital for additional care he was adamant that he wanted to be discharged and that he felt well enough to drink lot of fluids at home. His is at the bedside and she seemed to second his point of view. I therefore discharge the patient with instructions to take a lot of fluids at home and to call his PCP in the morning to set up prompt repeat outpatient labs. He was ambulatory with his at discharge. Time: 04:35 Medications Administered Discontinued Medications Generic Name Dose Route Start Last Admin Trade Name Freq PRN Reason Stop Dose Admin Al Hydroxide/Mg Hydroxide 30 ml 08/19/25 01:36 08/19/25 02:00 Magnesium Hydrox/Alum Hydrox 30 Ml Oral.Susp PO 08/19/25 01:37 30 ml ONCE ONE Administration Dextrose 12.5 gm 08/18/25 22:57 08/18/25 23:12 Dextrose 50 % 25 Gm/50 Ml Syringe IVPUSH 08/18/25 22:58 12.5 gm ONCE ONE Administration Famotidine 20 mg 08/19/25 01:36 08/19/25 01:48 Famotidine 20 Mg Tablet PO 08/19/25 01:37 20 mg ONCE ONE Administration Lactated Ringer's 1,000 mls @ 999 mls/hr 08/18/25 23:45 08/19/25 03:55 Lr IV 08/19/25 01:45 Infused .Q1H1M KEVIN Infusion Potassium Chloride 40 meq 08/18/25 23:59 08/19/25 00:19 Potassium Chloride Packet 20 Meq Packet PO 08/19/25 00:00 40 meq ONCE ONE Administration Medical Decision Making Medical Decision Making MDM Narrative: Medical Decision Makin-year-old male with diabetes called EMS for pain in the back radiating down the legs. During the ED as above detailed, the patient had a hypoglycemic episode. Patient ate got dextrose had complex carbohydrate and protein and was monitored no further hypoglycemic episodes. Regarding the toe for which he does complain of socks like a chronic ulcer and can be followed up in [facility]. Hypoglycemic episode likely to a long part of the day without eating. Monitored several hours without hypoglycemic episode discharge safely with partner Preliminary Favored Differential Diagnosis: Hypoglycemia, poor nutritional intake, dehydration, JUVENCIO, electrolyte derangement, musculoskeletal back or neck pain, chronic diabetic foot ulcer among additional considered etiologies Testing Interpreted Independently: ?See below for details Radiology or Lab testing Results Reviewed: ?See below for details Consults: ?See below for details Independent Historians/External Chart Reviews: ?See below for details Social Determinants of Health Impacting MDM/Planning: ?See below for details Lab Data 08/18/25 23:21 08/19/25 02:26 Labs: Lab Results 08/18/25 08/18/25 08/18/25 Range/Units 22:56 23:08 23:21 WBC 4.2 L (4.8-10.8) X10*3/uL RBC 3.11 L (4.60-5.80) X10*6/uL Hgb 11.0 L (14.0-18.0) g/dl Hct 30.0 L (42.0-52.0) % MCV 96.5 (80.0-98.0) fL MCH 35.4 H (27.0-33.0) pg MCHC 36.7 H (31.0-36.0) g/dl RDW 12.3 (11.0-16.0) % Plt Count 140 L (160-400) X10*3/uL MPV 9.4 (9.4-12.4) fL Immature Gran % (Auto) 0.2 (0.0-0.4) % Neut % (Auto) 49.3 (45-73) % Lymph % (Auto) 24.8 (20-40) % [place] % (Auto) 21.4 H (2-11) % Eos % (Auto) 3.1 (0-4) % Baso % (Auto) 1.2 (0-2) % Lymph # (Auto) 1.0 L (1.2-4.9) X10*3/uL [place] # (Auto) 0.9 (0.1-1.2) X10*3/uL Eos # (Auto) 0.1 (0.0-0.4) X10*3/uL Baso # (Auto) 0.1 (0.0-0.2) X10*3/uL Abs Immat Gran (auto) 0.01 (0.00-0.03) X10*3/uL Absolute Neuts (auto) 2.1 (2.0-8.3) x10*3/uL Absolute Nucleated RBC 0.000 (0.0-0.012) X10*3/uL Nucleated RBC % (auto) 0.0 (0.0-0.2) /100WBC Smear Tech's Comments VERIFIED Sodium 134 L (135-145) mmol/L Potassium 3.2 L D (3.3-5.1) mmol/L Chloride 104 (96-108) mmol/L Carbon Dioxide 17 L (22-29) mmol/L Anion Gap 16 (12-20) BUN 31 H (9-16) mg/dL Creatinine 3.04 H (0.5-1.4) mg/dL Estim Creat Clear Calc 22.7 Estimated GFR 21 POC Glucose 13 L* 13 L* (60-115) mg/dL Random Glucose 188 H (60-115) mg/dL Calcium 8.4 D (8.4-10.2) mg/dL Magnesium 2.2 (1.6-2.6) mg/dL Total Bilirubin 0.3 (0.0-1.0) mg/dL AST 83 H (5-37) U/L ALT 45 H (0-40) U/L Alkaline Phosphatase 83 (39-117) U/L Total Protein 6.5 (6.5-8.0) g/dL Albumin 3.4 L (3.5-5.0) g/dL 08/18/25 08/18/25 08/19/25 Range/Units 23:29 23:49 00:27 WBC (4.8-10.8) X10*3/uL RBC (4.60-5.80) X10*6/uL Hgb (14.0-18.0) g/dl Hct (42.0-52.0) % MCV (80.0-98.0) fL MCH (27.0-33.0) pg MCHC (31.0-36.0) g/dl RDW (11.0-16.0) % Plt Count (160-400) X10*3/uL MPV (9.4-12.4) fL Immature Gran % (Auto) (0.0-0.4) % Neut % (Auto) (45-73) % Lymph % (Auto) (20-40) % [place] % (Auto) (2-11) % Eos % (Auto) (0-4) % Baso % (Auto) (0-2) % Lymph # (Auto) (1.2-4.9) X10*3/uL [place] # (Auto) (0.1-1.2) X10*3/uL Eos # (Auto) (0.0-0.4) X10*3/uL Baso # (Auto) (0.0-0.2) X10*3/uL Abs Immat Gran (auto) (0.00-0.03) X10*3/uL Absolute Neuts (auto) (2.0-8.3) x10*3/uL Absolute Nucleated RBC (0.0-0.012) X10*3/uL Nucleated RBC % (auto) (0.0-0.2) /100WBC Smear Tech's Comments Sodium (135-145) mmol/L Potassium (3.3-5.1) mmol/L Chloride (96-108) mmol/L Carbon Dioxide (22-29) mmol/L Anion Gap (12-20) BUN (9-16) mg/dL Creatinine (0.5-1.4) mg/dL Estim Creat Clear Calc Estimated GFR POC Glucose 187 H 165 H 220 H (60-115) mg/dL Random Glucose (60-115) mg/dL Calcium (8.4-10.2) mg/dL Magnesium (1.6-2.6) mg/dL Total Bilirubin (0.0-1.0) mg/dL AST (5-37) U/L ALT (0-40) U/L Alkaline Phosphatase (39-117) U/L Total Protein (6.5-8.0) g/dL Albumin (3.5-5.0) g/dL 08/19/25 Range/Units 02:26 WBC (4.8-10.8) X10*3/uL RBC (4.60-5.80) X10*6/uL Hgb (14.0-18.0) g/dl Hct (42.0-52.0) % MCV (80.0-98.0) fL MCH (27.0-33.0) pg MCHC (31.0-36.0) g/dl RDW (11.0-16.0) % Plt Count (160-400) X10*3/uL MPV (9.4-12.4) fL Immature Gran % (Auto) (0.0-0.4) % Neut % (Auto) (45-73) % Lymph % (Auto) (20-40) % [place] % (Auto) (2-11) % Eos % (Auto) (0-4) % Baso % (Auto) (0-2) % Lymph # (Auto) (1.2-4.9) X10*3/uL [place] # (Auto) (0.1-1.2) X10*3/uL Eos # (Auto) (0.0-0.4) X10*3/uL Baso # (Auto) (0.0-0.2) X10*3/uL Abs Immat Gran (auto) (0.00-0.03) X10*3/uL Absolute Neuts (auto) (2.0-8.3) x10*3/uL Absolute Nucleated RBC (0.0-0.012) X10*3/uL Nucleated RBC % (auto) (0.0-0.2) /100WBC Smear Tech's Comments Sodium 130 L (135-145) mmol/L Potassium 4.6 D (3.3-5.1) mmol/L Chloride 100 (96-108) mmol/L Carbon Dioxide 21 L (22-29) mmol/L Anion Gap 14 (12-20) BUN 28 H (9-16) mg/dL Creatinine 2.90 H (0.5-1.4) mg/dL Estim Creat Clear Calc 23.8 Estimated GFR 22 POC Glucose (60-115) mg/dL Random Glucose 320 H (60-115) mg/dL Calcium 8.8 (8.4-10.2) mg/dL Magnesium (1.6-2.6) mg/dL Total Bilirubin (0.0-1.0) mg/dL AST (5-37) U/L ALT (0-40) U/L Alkaline Phosphatase (39-117) U/L Total Protein (6.5-8.0) g/dL Albumin (3.5-5.0) g/dL Critical Care Time Critical Care Time Critical Care Time: Yes Total Critical Care Time: 30 Attestation: ED Critical Care: Severe profound transient hypoglycemia with encephalopathy requiring intravenous dextrose Authorized and Performed by: Roberth Mayer MD Total critical care time: Approximately 30 min Due to a high probability of clinically significant, life threatening deterioration, the patient required my highest level of preparedness to intervene emergently and I personally spent this critical care time directly and personally managing the patient. This critical care time included obtaining a history; examining the patient; pulse oximetry; ordering and review of studies; arranging urgent treatment with development of a management plan; evaluation of patient's response to treatment; frequent reassessment; and, discussions with other providers. This critical care time was performed to assess and manage the high probability of imminent, life-threatening deterioration that could result in multi-organ failure. It was exclusive of separately billable procedures and treating other patients and teaching time. Discharge Plan Discharge Clinical Impression: Hypoglycemia, Chronic diabetic ulcer of foot determined by examination, Acute kidney injury, Acute hypokalemia Patient Disposition: Home, Self-Care Instructions: Acute Kidney Injury (DC) Additional Instructions: You were evaluated in the emergency department for low back pain. While you were here you had a low blood sugar episode your glucose was 13. You were given intravenous and oral dextrose and this improved we monitored you for several hours. We ultrasound of your kidneys which did not show signs of urinary system obstruction. Your kidneys did show little bit of damage this could be from dehydration or other causes and needs to be followed up. Your potassium was also somewhat low. This needs to be followed up as well. Diagnosis: Low back pain probably radiculopathy or sciatica musculoskeletal etiology. Generalized weakness shoulder pain neck pain unclear etiology probably musculoskeletal Acute kidney injury possibly dehydration. You have an elevated creatinine level which needs to be rechecked by Friday or Friday at the latest call your primary doctor to schedule the outpatient lab repeat including a repeat testing of your creatinine and potassium this is called a blood chemistry test Drink plenty of fluids. Eat small meals throughout the day and make sure your monitoring your blood sugar closely. Prescriptions: No Action atenolol 25 mg tablet 25 mg PO DAILY Qty: 90 0RF Humalog Mix 75-25(U-100)Insuln 100 unit/mL (75-25) suspension 35 unit subcut BID Qty: 10 0RF (DME) Accu-Chek Erika Plus test strp Strip See Rx Instructions .ROUTE .COMPLEX Qty: 100 0RF Dose Instruction: USE TO CHECK BLOOD SUGAR TWICE DAILY Rx Instructions: USE TO CHECK BLOOD SUGAR TWICE DAILY diphenhydramine HCl [Benadryl Allergy] 25 mg tablet 25 mg PO DAILY PRN (Reason: Allergies) omeprazole 20 mg capsule,delayed release(DR/EC) 20 mg PO DAILY Antiseptic Wound-Skin 0.1 % cleanser 1 appl topical BID-TID PRN (Reason: odor) Qty: 237 0RF mupirocin 2 % ointment 1 appl topical BID 14 Days Qty: 22 0RF doxycycline monohydrate 100 mg tablet 100 mg PO BID 10 Days Qty: 20 0RF pravastatin 80 mg tablet 80 mg PO DAILY Qty: 90 3RF Referrals: Bon Martinez FNP-C [Primary Care Provider, Internal Medicine] Interventions: ED Discharge Assessment Last Done: 08/19/25 04:24 Discharge Date/Time: 08/19/25 04:27 Print Language: Bengali
[2025-08-18 23:26] LABS: Hematocrit 30.0 % (42.0-52.0); Hemoglobin 11.0 g/dl (14.0-18.0); Imm Gran Abs Auto 0.01 X10*3/uL (0.00-0.03); Imm Gran Pct Auto 0.2 % (0.0-0.4); Lymphocytes Absolute Auto 1.0 X10*3/uL (1.2-4.9); MANUAL DIFF FLAG SCAN; Mean Corpuscular HGB Conc 36.7 g/dl (31.0-36.0); Mean Corpuscular Hemoglobin 35.4 pg (27.0-33.0); Mean Corpuscular Volume 96.5 fL (80.0-98.0); NRBC Abs Auto 0.000 X10*3/uL (0.0-0.012); NRBC Pct Auto 0.0 /100WBC (0.0-0.2); Platelet Count 140 X10*3/uL (160-400); Red Blood Count 3.11 X10*6/uL (4.60-5.80); SCAN SMEAR FLAG 1; White Blood Count 4.2 X10*3/uL (4.8-10.8)
[2025-08-18 23:33] LABS: Glucose, Whole Blood 13 mg/dL (60-115)
[2025-08-18 23:33] LABS: Glucose, Whole Blood 13 mg/dL (60-115)
[2025-08-18 23:33] LABS: Glucose, Whole Blood 187 mg/dL (60-115)
[2025-08-18 23:47] LABS: Alanine Aminotransferase 45 U/L (0-40); Albumin Level 3.4 g/dL (3.5-5.0); Alkaline Phosphatase 83 U/L (39-117); Anion Gap 16 (12-20); Aspartate Amino Transferase 83 U/L (5-37); Blood Urea Nitrogen 31 mg/dL (9-16); Calcium 8.4 mg/dL (8.4-10.2); Carbon Dioxide 17 mmol/L (22-29); Chloride 104 mmol/L (96-108); Creatinine Clr Calc Pharmacy 22.7; Estimated Glomerular Filt Rate 21; Potassium 3.2 mmol/L (3.3-5.1); Sodium 134 mmol/L (135-145); Total Protein 6.5 g/dL (6.5-8.0)
[2025-08-18 23:53] LABS: Glucose, Whole Blood 165 mg/dL (60-115)
[2025-08-19] VITALS: BP 100/47; PULSE 52; TEMP 36.9; O2SAT 99
[2025-08-19] MEDS: Lactated Ringers 1,000 ML 999 ML IV ×2 (00:19→01:52)
[2025-08-19] MEDS: Potassium Chloride Packet 20 MEQ PACKET 40 MEQ PO (00:19)
--- NOTE | 2025-08-19 00:26 | ECG_ITS ---
Test Reason : HYPOGLYCEMIA Blood Pressure : */* mmHG Vent. Rate : 63 BPM Atrial Rate : 63 BPM P-R Int : 162 ms QRS Dur : 88 ms QT Int : 442 ms P-R-T Axes : 49 12 43 degrees QTcB Int : 452 ms Normal sinus rhythm Normal ECG When compared with ECG of 21-Apr-2025 18:39, No significant change was found Referred By: Roberth Mayer Electronically Signed By: Boris Munguia
[2025-08-19 00:32] LABS: Glucose, Whole Blood 220 mg/dL (60-115)
[2025-08-19 00:59] LABS: Magnesium 2.2 mg/dL (1.6-2.6)
[2025-08-19] MEDS: Magnesium Hydrox/Alum Hydrox 30 ML ORAL.SUSP PO (02:00)
[2025-08-19 02:46] LABS: Anion Gap 14 (12-20); Blood Urea Nitrogen 28 mg/dL (9-16); Calcium 8.8 mg/dL (8.4-10.2); Carbon Dioxide 21 mmol/L (22-29); Chloride 100 mmol/L (96-108); Creatinine Clr Calc Pharmacy 23.8; Estimated Glomerular Filt Rate 22; Potassium 4.6 mmol/L (3.3-5.1); Sodium 130 mmol/L (135-145)
[2025-08-19 04:24] VITALS: BP 160/62; PULSE 67; RESP 16; TEMP 36.6; O2SAT 99
== END 2025-08-19 04:27 | disposition home or self-care (01) ==
PROVIDERS: Emergency Medicine; Emergency Provider Emergency Medicine
DX: E11.649 Type 2 diabetes mellitus with hypoglycemia without coma (principal); E11.621 Type 2 diabetes mellitus with foot ulcer; E87.6 Hypokalemia; N17.9 Acute kidney failure, unspecified; G93.40 Encephalopathy, unspecified; M54.2 Cervicalgia; M54.9 Dorsalgia, unspecified; M54.50 Low back pain, unspecified
CPT/HCPCS: 36415; 73630; 80048; 80053; 82947; 83735; 85025; 93005; 96361; 96374; 99285; J7120

== ENCOUNTER → 2025-08-18 22:57 | Outpatient (BNV) | payer MEDICARE, MEDICAID, SELFPAY | PROVIDERS: Emergency Provider Emergency Medicine; Visit Provider Radiology Diagnostic Radiology | DX: M79.89 Other specified soft tissue disorders (principal) | CPT/HCPCS: 73630 ==

== ENCOUNTER → 2025-08-19 00:26 | Outpatient (BNV) | payer MEDICARE, MEDICAID, SELFPAY | PROVIDERS: Emergency Provider Emergency Medicine; Visit Provider Internal Medicine Cardiovascular Disease | DX: E16.2 Hypoglycemia, unspecified (principal) | CPT/HCPCS: 93010 ==